=== PATIENT | male | born 1960 | race Caucasian/White ===

== ENCOUNTER 2017-09-16 11:48 | Emergency (ER) | payer MEDICARE, SELFPAY | END 2017-09-16 14:31 | disposition home or self-care (01) | PROVIDERS: Emergency Provider Emergency Medicine; Visit Provider Emergency Medicine | DX: J11.1 Influenza due to unidentified influenza virus with other respiratory manifestations (principal); K52.9 Noninfective gastroenteritis and colitis, unspecified; K57.92 Diverticulitis of intestine, part unspecified, without perforation or abscess without bleeding; R68.83 Chills (without fever); Z72.0 Tobacco use | CPT/HCPCS: 74176; 80053; 81001; 83690; 85025; 87086; 87275; 87276; 99283; J2405 ==

== ENCOUNTER 2020-05-17 14:56 | Emergency (ER) | payer MEDICARE, SELFPAY ==
[2020-05-17 15:14] VITALS: BP 144/92; PULSE 91; RESP 19; TEMP 36.6; O2SAT 98; BMI 22.2
--- NOTE | 2020-05-17 15:49 | HMH.EDUTC ---
[facility] [place] Clinical Impression: Cellulitis of left foot Disposition: Home, Self-Care Condition on Discharge: Good Instructions: Cellulitis Additional Instructions: Keep the affected area clean and dry. Follow up with your regular doctor. Take the antibiotics as directed and apply the topical antibiotics as directed. Soak the foot in warm epsom salts water 2 or 3 times per day for the next few days. Follow up podiatry (Dr. Perry) if this is not getting better within a 2 to 3 days. Follow up with your regular doctor. We will give you a list of doctors that are taking new patients. GO TO THE ER FOR ANY WORSENING SYMPTOMS Prescriptions: Amoxicillin/Potassium Clav [Augmentin 875-125 Tablet] 1 tab PO Q12H 10 Days #20 tab Transmission Status: Received by [facility] Mupirocin [Bactroban 2% Ointment 22gm tube] 1 applicatio TP TID 7 Days #1 tube Transmission Status: Received by [facility] Referrals: PCP,No [Primary Care Provider] - Time of Disposition: 16:04 Medical Decision Making - Medical Records Medical records reviewed: No: I reviewed the patient's medical records. - Diogenes Inquiry Pt receiving controlled substance: No Vital Signs: 05/17/20 15:14 05/17/20 16:20 Temperature 97.9 F 97.9 F Temperature Source Oral Pulse Rate 91 H Pulse Rate [Right Brachial] 91 H Respiratory Rate 19 19 Blood Pressure 144/92 H Blood Pressure [Right Arm] 144/92 H Blood Pressure Mean [Right Arm] 109 Blood Pressure Source [Right Arm] Automatic Cuff Blood Pressure Position [Right Arm] Sitting 02 Sat by Pulse Oximetry 98 Oxygen Delivery Method Room Air Orders (Tests/Meds): ED MEDICATIONS Discontinued Medications Generic Name Dose Route Start Last Admin Trade Name Freq PRN Reason Stop Dose Admin Ceftriaxone Sodium 1 gm 05/17/20 15:59 05/17/20 16:14 Rocephin 1gm Vial IM 05/17/20 16:00 1 gm ONCE ONE Administration Protocol Lidocaine HCl 0 ml 05/17/20 15:59 05/17/20 16:14 Lidocaine 1% 10ml Mdv IM 05/17/20 16:00 2.1 ml ONCE ONE Administration [facility] [place] - General Stated complaint: Pain in pinkie toe on l foot with swelling Time Seen by Provider: 05/17/20 15:50 Mode of Arrival: Ambulatory Source of Information: Patient Limitations: No Limitations Description of Symptoms (Recalled from Triage Doc. by RN): PATIENT C/O REDNESS AND SWELLING TO LEFT PINKY TOE X 3 DAYS HEENT Symptoms (Recalled from RN notes): No Resp Symptoms (Recalled from RN notes): No Skin Symptoms (Recalled from RN notes): No MS Symptoms (Recalled from RN notes): Yes Functional Status (Recalled from RN notes): WNL - History of Present Illness Provider Complaint: He states that he has a sore area between his 4th and 5th toes on his left foot. This began 2 days ago. - Related Data Previous Rx's Medication Instructions Recorded Erythromycin Base [Erythromycin 1 gm EYE-RIGHT Q6H #1 tube 11/11/19 1gm opth ointment] Amoxicillin/Potassium Clav 1 tab PO Q12H 10 Days #20 tab 05/17/20 [Augmentin 875-125 Tablet] Mupirocin [Bactroban 2% Ointment 1 applicatio TP TID 7 Days #1 tube 05/17/20 22gm tube] Allergies Allergy/AdvReac Type Severity Reaction Status Date / Time No Known Allergies Allergy Verified 11/11/19 09:26 - Worker's Comp Is this a Worker's Comp case?: No [facility] History - Hepatitis A Screen Drug use history?: No High risk sexual behaviors?: No History of sexually transmitted infection?: No Currently employed?: No Childcare worker?: No Do you have indoor plumbing?: Yes Do you have electricity?: Yes Attestation statement:: This patient has been screened for Hepatitis A risk factors. I have reviewed the patient's past medical history: Yes - Social History Smoking Status: Current every day smoker Tobacco Type: cigarettes # Packs/Day (cigarettes): 1 Alcohol Intake: never Occupational Status: other ROS Obtained: Yes All sohail
[2020-05-17 16:20] VITALS: BP 144/92; PULSE 91; RESP 19; TEMP 36.6; O2SAT 98
== END 2020-05-17 16:28 | disposition home or self-care (01) ==
PROVIDERS: Emergency Provider Nurse Practitioner Family
DX: L03.116 Cellulitis of left lower limb (principal); F17.210 Nicotine dependence, cigarettes, uncomplicated
CPT/HCPCS: G0463; 96372; 99201

== ENCOUNTER 2023-01-30 18:32 | Emergency (ER) | payer MEDICARE, SELFPAY ==
[2023-01-30 18:41] VITALS: PULSE 101; O2SAT 99
[2023-01-30 18:45] VITALS: BP 186/100; PULSE 105; RESP 16; TEMP 37.6; O2SAT 99; BMI 21.5
--- NOTE | 2023-01-30 18:47 | PC.NURSE ---
Er at bedside
--- NOTE | 2023-01-30 18:50 | CT_ITS ---
PROCEDURE INFORMATION: Exam: CT Abdomen And Pelvis With Contrast Exam date and time: 01/30/2023 7:43 PM Age: 62 years old Clinical indication: Abdominal pain; Additional info: Concern for complicated divertic TECHNIQUE: Imaging protocol: Computed tomography of the abdomen and pelvis with contrast. Radiation optimization: All CT scans at this facility use at least one of these dose optimization techniques: automated exposure control; mA and/or kV adjustment per patient size (includes targeted exams where dose is matched to clinical indication); or iterative reconstruction. Contrast material: ISOVUE; Contrast volume: 75 ml; Contrast route: IV; REPORTING DATA: Count of CT and Cardiac NM exams in prior 12 months: This patient has received 0 known CTs and 0 known cardiac nuclear medicine studies in the 12 months prior to the current study. COMPARISON: ABDPELW/O CT ABD PELVIS W/O CONTRAST 09/16/2017 12:38 PM FINDINGS: Liver: Diffuse low-attenuation of the liver. No mass. Gallbladder and bile ducts: No calcified stones. No ductal dilation. Pancreas: Normal enhancement. No ductal dilation. Spleen: No splenomegaly. Adrenal glands: No mass. Kidneys and ureters: No hydronephrosis. Stomach and bowel: Diverticulosis coli with thickened appearance of the cecum but without significant adjacent stranding. The terminal ileum also appears thickened with several prominent loops of small bowel within the right paramedian abdomen measuring up to 2.9 cm in short axis dimension. Appendix: No evidence of appendicitis. Intraperitoneal space: No significant fluid collection. No free air. Vasculature: Calcified aortic atherosclerosis. No aneurysm. Lymph nodes: No enlarged lymph nodes. Urinary bladder: Urinary bladder wall is thickened measuring 8 mm. Reproductive: No acute abnormality. Bones/joints: No acute fracture. Soft tissues: Small fat containing inguinal hernias appears stable. IMPRESSION: 1. Diverticulosis coli with thickened appearance of the cecum but without significant adjacent stranding. Correlate clinically with diverticulitis or short-segment colitis. Mucosal mass can not be radiographically excluded 2. The terminal ileum also appears thickened with several prominent loops of small bowel within the right paramedian abdomen measuring up to 2.9 cm in short axis dimension. Correlate clinically with potential enteritis and or developing partial obstruction. 3. Urinary bladder wall is thickened which may be reactive however correlation with UA is recommended.
--- NOTE | 2023-01-30 18:51 | HMH.EDGENADL ---
Discharge Plan Disposition Patient Disposition: Home, Self-Care Prescriptions Prescriptions: New ciprofloxacin HCl 500 mg tablet 500 mg PO Q12H Qty: 14 0RF metronidazole 500 mg tablet 500 mg PO Q8H 7 Days Qty: 21 0RF No Action erythromycin 1 GM ointment 1 gm EYE-RIGHT Q6H Qty: 1 0RF mupirocin 22 GM ointment 1 applicatio TP TID 7 Days Qty: 1 0RF amoxicillin-pot clavulanate 1 EACH tablet 1 tab PO Q12H 10 Days Qty: 20 0RF Referrals Follow up/Referrals: Provider,Nicolas, [Primary Care Provider] - See instructions Marco Restrepo MD [Staff Physician] - See instructions Clinical Impressions Clinical Impression: Diverticulitis Instructions Patient Instructions: DI for Diverticulitis Discharge ED Provider: Ken Jefferson General Adult HPI General Chief complaint: GI Bleed Stated complaint: vomiting Time Seen by Provider: 01/30/23 18:45 Mode of Arrival: Ambulatory Source of Information: Patient and Relative Limitations: No Limitations Description of Symptoms (Recalled from ER Triage Doc. by RN): 62 yo M presents with c/o rectal bleeding. ongoing since tuesday. History of Present Illness HPI narrative: Patient is a 62-year-old male who presents with concern for rectal bleeding. He says that starting on Tuesday he started to get left lower quadrant pain and then noted that he was having some rectal bleeding. He noted that there was occasionally red mixed in his stool but occasionally like that he was streaking. He has a history of diverticulitis. He also endorses fever and chills. He says the pain is gotten substantially worse. He also feels very nauseous. He says that yesterday he was going to the bathroom numerous times with blood-tinged diarrhea. He also notes some pain down in his pelvic region. Denies any dysuria. Denies any hematuria. Related Data Previous Rx's Medication Instructions Recorded erythromycin 5 mg/gram (0.5 %) eye 1 gm EYE-RIGHT Q6H #1 tube 11/11/19 ointment amoxicillin 875 mg-potassium 1 tab PO Q12H 10 days #20 tabs 05/17/20 clavulanate 125 mg tablet mupirocin 2 % topical ointment 1 applicatio TP TID 7 days #1 tube 05/17/20 ciprofloxacin HCl 500 mg tablet 500 mg PO Q12H #14 tabs 01/30/23 metronidazole 500 mg tablet 500 mg PO Q8H 7 days #21 tabs 01/30/23 Allergies Allergy/AdvReac Type Severity Reaction Status Date / Time No Known Allergies Allergy Verified 11/11/19 09:26 [facility] Disclaimer: The information contained in this section may have been updated after the patient was seen, as this information can be updated by other users. Social History Smoking Status: Current every day smoker tobacco type: cigarettes packs per day: 1 alcohol intake: never current occupational status: other Travel in the last 8 weeks: None ROS Obtained: Yes All systems reviewed & no additional complaints except as documented Physical Exam General General appearance: alert and in no apparent distress Head Head exam: atraumatic, normocephalic and normal inspection Eye Eye exam: Present normal appearance and PERRL ENT ENT exam: Present normal exam, mucous membranes moist and normal external ear exam Neck Neck exam: Present normal inspection and trachea midline Chest Chest inspection: Present normal inspection and symmetric chest wall rise Respiratory Respiratory exam: Present normal lung sounds bilaterally; Absent respiratory distress Cardiovascular Cardiovascular exam: Present regular rate and normal rhythm Abdominal Exam Abdominal exam: Present soft and tenderness; Absent distention or guarding Abdominal tenderness: Present LLQ and moderate Extremities Exam Extremities exam: Present normal inspection; Absent edema Neurological Exam Neurological exam: Present alert and oriented X3 Psychiatric Psychiatric exam: Present normal affect and normal mood Skin Skin exam: Present warm, dry, intact and normal color Medical Decision Making Medic
[2023-01-30 19:05] LABS: Alanine Aminotransferase 68 U/L (12-78); Albumin Level 4.5 g/dl (3.5-5.0); Albumin/Globulin Ratio 1.5 (1.1-1.8); Alkaline Phosphatase 55 U/L (38-126); Anion Gap 17.2 mEq/L (5-15); Aspartate Amino Transferase 77 U/L (17-59); Basophils % 0.3 % (0.1-2.0); Blood Urea Nitrogen 7 mg/dl (9-20); Calcium 8.7 mg/dl (8.4-10.2); Carbon Dioxide 26 mmol/L (22.0-30.0); Chloride 86 mmol/L (98-107); Creatinine Clearance Estimated 74 mL/min (50-200); Eosinophils # 0.1 K/mm3 (0.0-0.4); Eosinophils % 1.3 % (0.1-12.0); Estimated Glomerular Filt Rate 114 ml/min (>60); GFR (African American) 138 ML/MIN (>60); Glucose 140 mg/dl (74-100); Hematocrit 49.3 % (42.0-52.0); Hemoglobin 16.6 g/dL (14.1-18.0); Lipase 107 U/L (23-300); Lymphocytes # 1.3 K/mm3 (0.7-4.5); Lymphocytes % 14.7 % (10-50); Mean Corpuscular HGB Conc 33.6 g/dL (31.8-35.4); Mean Corpuscular Hemoglobin 34.4 pg (27.0-31.2); Mean Corpuscular Volume 102.1 fl (80-94); Monocytes # 0.8 K/mm3 (0.1-1.0); Monocytes % 9.5 % (1.7-9.3); Neutrophils # 6.3 K/mm3 (1.8-7.8); Neutrophils % 74.2 % (37.0-80.0); Platelet Count 239 K/mm3 (142-424); Potassium 3.2 mmoL/L (3.5-5.1); Red Blood Count 4.83 M/mm3 (4.60-6.20); Red Cell Distribution Width 13.7 % (11.5-17.5); Sodium 126 mmol/L (136-145); Total Protein,Serum 7.5 g/dl (6.3-8.2); White Blood Count 8.5 K/mm3 (4.8-10.8)
[2023-01-30 19:10] LABS: C-Reactive Protein 31.5 mg/L (0-4)
[2023-01-30 19:24] LABS: Lactic Acid 1.9 mmol/L (0.7-2.1)
[2023-01-30 19:30] VITALS: BP 150/94; PULSE 86; O2SAT 99
--- NOTE | 2023-01-30 19:39 | PC.NURSE ---
Pt gone to RAD via wheelchair
[2023-01-30 19:54] LABS: Adenovirus F 40/41, stool Not Detected (NotDetected); Astrovirus Not Detected (NotDetected); Campylobacter Not Detected (NotDetected); Clostridium Difficile A/B, PCR Not Detected (NotDetected); Cryptosporidium Not Detected (NotDetected); Cyclospora Cayetanesis Not Detected (NotDetected); Entamoeba histolytica Not Detected (NotDetected); Enteropathogenic E coli Not Detected (NotDetected); Enterotoxigenic E coli Not Detected (NotDetected); Giardia lamblia Not Detected (NotDetected); Norovirus Not Detected (NotDetected); Plesimonas Shigalloides, PCR Not Detected (NotDetected); Rotavirus A Not Detected (NotDetected); Salmonella, PCR Not Detected (NotDetected); Sapovirus Not Detected (NotDetected); Shiga-like toxin E coli Not Detected (NotDetected); Shigella Enterovasive E coli Not Detected (NotDetected); Vibrio Cholerae Not Detected (NotDetected); Vibrio, PCR Not Detected (NotDetected); Yersinia Entercolitica, PCR Not Detected (NotDetected)
[2023-01-30 19:56] LABS: Occult Blood,Stool Positive (Negative)
--- NOTE | 2023-01-30 19:59 | PC.NURSE ---
Pt is back in room from RAD. No needs or complaints at this time.
--- NOTE | 2023-01-30 20:26 | PC.NURSE ---
Dr. Jefferson updating pt family on scan results
[2023-01-30 20:47] LABS: Microscopic, Urine URINE MICROSCOPIC (MICROSCOPIC)
[2023-01-30 21:10] VITALS: BP 147/71; PULSE 81; RESP 16; TEMP 37.1; O2SAT 99
[2023-01-30 21:13] LABS: Appearance,Urine CLEAR (Clear); Blood, Urine Negative (Negative); Color,Urine YELLOW (Yellow); Glucose,Urine (UA) Negative (Negative); Ketones,Urine TRACE (Negative); Leukocyte Esterase,Urine Negative (Negative); Nitrate,Urine Negative (Negative); PH,Urine 7.5 (5.0-8.5); Protein,Urine Negative (Negative); Specific Gravity, Urine <= 1.005 (1.005-1.030); Urobilinogen,Urine 0.2 EU/dl (0.2)
--- NOTE | 2023-01-30 21:32 | PC.NURSE ---
Pt is ready for d/c, family is aware and will be by shortly to take pt home
[2023-01-30 21:43] LABS: Bilirubin,Urine 1+ (Negative)
[2023-01-30 22:01] LABS: Bacteria,Urine Trace /lpf; Squamous Epithelial Cell,Urine Occasional #/hpf (0-5)
[2023-01-30 22:40] LABS: Enteroaggregative E coli Detected (NotDetected)
--- NOTE | 2023-01-30 22:45 | PC.NURSE ---
notified on positive ecoil diarrhea panel
== END 2023-01-30 22:28 | disposition home or self-care (01) ==
PROVIDERS: Emergency Provider Student in an Organized Health Care Education/Training Program
DX: K57.92 Diverticulitis of intestine, part unspecified, without perforation or abscess without bleeding (principal); K62.5 Hemorrhage of anus and rectum; F17.210 Nicotine dependence, cigarettes, uncomplicated
CPT/HCPCS: 74177; 80053; 81001; 82272; 83605; 83690; 84145; 85025; 86140; 87086; 87506; 96361; 96374; 96375; 99285; G0328; J2405; Q9967

== ENCOUNTER 2023-01-31 09:56 | Observation (INO) | payer MEDICARE, SELFPAY ==
[2023-01-31] VITALS (7 sets, daily range): BP systolic 119–175; BP diastolic 80–98; PULSE 68–96; RESP 16–20; TEMP 36.8–36.9; O2SAT 91–100; BMI 21.5
--- NOTE | 2023-01-31 09:59 | HMH.EDGENADL ---
Discharge Plan Disposition Chief Complaint: Altered Mental Status Prescriptions Prescriptions: No Action erythromycin 1 GM ointment 1 gm EYE-RIGHT Q6H Qty: 1 0RF ciprofloxacin HCl 500 mg tablet 500 mg PO Q12H Qty: 14 0RF metronidazole 500 mg tablet 500 mg PO Q8H 7 Days Qty: 21 0RF mupirocin 22 GM ointment 1 applicatio TP TID 7 Days Qty: 1 0RF amoxicillin-pot clavulanate 1 EACH tablet 1 tab PO Q12H 10 Days Qty: 20 0RF Discharge ED Provider: Pieter Villalta General Adult HPI General Chief complaint: Altered Mental Status Stated complaint: altered mental Time Seen by Provider: 01/31/23 09:59 History of Present Illness HPI narrative: Patient is a 62-year-old male presenting with altered mental status. He is accompanied by his daughter who is a primary historian as patient is significantly altered. Patient was in the emergency department last night with abdominal pain and lower GI bleed had a CT scan demonstrating diverticulitis was started on Cipro and Flagyl. Patient's sodium was also 126. Patient has a history of alcoholism and drinks daily but has not had any drinks in the last 48 hours according to daughter. She states that he was acting normally up until about 30 minutes prior to arrival when she went into [facility] and returned and patient was significantly altered. No witnessed seizure. No tongue biting or bleeding from his mouth and patient not lost any urinary continence. She stated the patient had no focal motor deficits and his only neurologic abnormality was a change in mental status. Patient has not had any fevers or chills. Additionally he has not complained of any significant abdominal pain since being discharged last night. Related Data Previous Rx's Medication Instructions Recorded erythromycin 5 mg/gram (0.5 %) eye 1 gm EYE-RIGHT Q6H #1 tube 11/11/19 ointment amoxicillin 875 mg-potassium 1 tab PO Q12H 10 days #20 tabs 05/17/20 clavulanate 125 mg tablet mupirocin 2 % topical ointment 1 applicatio TP TID 7 days #1 tube 05/17/20 ciprofloxacin HCl 500 mg tablet 500 mg PO Q12H #14 tabs 01/30/23 metronidazole 500 mg tablet 500 mg PO Q8H 7 days #21 tabs 01/30/23 Allergies Allergy/AdvReac Type Severity Reaction Status Date / Time No Known Allergies Allergy Verified 11/11/19 09:26 [facility] Disclaimer: The information contained in this section may have been updated after the patient was seen, as this information can be updated by other users. Social History Smoking Status: Never smoker alcohol intake: never current occupational status: other Travel in the last 8 weeks: None ROS Obtained: Yes All systems reviewed & no additional complaints except as documented Physical Exam General General appearance: alert and in no apparent distress Respiratory Respiratory exam: Present normal lung sounds bilaterally; Absent respiratory distress or wheezes Cardiovascular Cardiovascular exam: Present regular rate; Absent normal rhythm or tachycardia Neurological Exam Neurological exam: Present alert, oriented X3 (Oriented to self location but disoriented to time saying inappropriate things not consistent with linear thought processes), CN II-XII intact and normal gait; Absent motor sensory deficit Medical Decision Making Diogenes Inquiry Pt receiving controlled substance: No Vital Signs: 01/31/23 10:06 01/31/23 10:30 01/31/23 11:00 Temperature 98.4 F Temperature Source Oral Pulse Rate 92 H 78 Pulse Rate [Left Radial] 96 H Respiratory Rate 20 16 16 Blood Pressure 119/90 142/98 H Blood Pressure [Right Arm] 175/93 H Blood Pressure Mean 97 103 Blood Pressure Mean [Right Arm] 120 02 Sat by Pulse Oximetry 100 99 98 Oxygen Delivery Method Room Air Lab Data Lab results reviewed: Yes I reviewed the patient's lab results. Lab Results 01/31/23 10:00: WBC 8.4, RBC 4.88, Hgb 17.0, Hct 49.7, MCV 101.8 H, MCH 34.8 H, MCHC 34.1, RDW 13.5, Plt Count 21
--- NOTE | 2023-01-31 10:00 | ECG_ITS ---
APPROVED REPORT Exam: Resting ECG HR:96 bpm ECG Measurements Heart Rate 96 AXES WI 180 P 59 QRSd 82 QRS 44 QT 369 T 46 QTc 423 Conclusion SINUS RHYTHM MODERATE ST DEPRESSION [0.05+ mV ST DEPRESSION] ABNORMAL ECG UNCONFIRMED REPORT Electronically signed by : Marco Restrepo MD 01/31/2023 21:14:26
--- NOTE | 2023-01-31 10:04 | PC.NURSE ---
JIM PETTY at
[2023-01-31 10:08] LABS: POC Glucose,Bedside 158 (70-110)
--- NOTE | 2023-01-31 10:11 | CT_ITS ---
FINAL REPORT CLINICAL HISTORY: AMS FINDINGS: Axial images of the head were obtained without contrast. Coronal reformatted images were also obtained.This study was performed with techniques to keep radiation doses as low as reasonably achievable (ALARA). Individualized dose reduction techniques using automated exposure control or adjustment of mA and/or kV according to the patient's size were employed. There is no evidence of intracranial hemorrhage or mass. The ventricular size is within normal limits. There is no evidence of shift of the midline structures. No abnormal extra axial fluid collection is identified. No skull abnormality is seen on the bone window images. There is moderate mucosal thickening in the right maxillary sinus. IMPRESSION: No acute intracranial abnormality. Reviewed, Interpreted and Dictated by Job Conn III, MD Transcribed by Jose M Crum Authenticated and [facility]
--- NOTE | 2023-01-31 10:11 | PC.NURSE ---
rad notified of new orders on pt, ER reports placing orders at this time
--- NOTE | 2023-01-31 10:12 | XR_ITS ---
FINAL REPORT CLINICAL HISTORY: AMS FINDINGS: The heart size is normal. The mediastinum is within normal limits. There is mild right lung base opacity. There is no pleural effusion. There is no pneumothorax. The bony thorax is intact. IMPRESSION: Mild right base opacity could represent atelectasis or pneumonia. Reviewed, Interpreted and Dictated by Job Conn III, MD Transcribed by Jose M Crum Authenticated and [facility]
--- NOTE | 2023-01-31 10:16 | PC.NURSE ---
pt to CT
[2023-01-31 10:22] LABS: Basophils % 0.4 % (0.1-2.0); Eosinophils # 0.2 K/mm3 (0.0-0.4); Hematocrit 49.7 % (42.0-52.0); Lymphocytes # 1.6 K/mm3 (0.7-4.5); Lymphocytes % 18.4 % (10-50); Mean Corpuscular HGB Conc 34.1 g/dL (31.8-35.4); Mean Corpuscular Hemoglobin 34.8 pg (27.0-31.2); Mean Corpuscular Volume 101.8 fl (80-94); Mean Platelet Volume 9.4 fl (7.4-10.4); Monocytes # 0.8 K/mm3 (0.1-1.0); Monocytes % 9.6 % (1.7-9.3); Neutrophils # 5.8 K/mm3 (1.8-7.8); Neutrophils % 69.6 % (37.0-80.0); Platelet Count 216 K/mm3 (142-424); Red Blood Count 4.88 M/mm3 (4.60-6.20); Red Cell Distribution Width 13.5 % (11.5-17.5); White Blood Count 8.4 K/mm3 (4.8-10.8)
[2023-01-31 10:27] LABS: Alanine Aminotransferase 93 U/L (12-78); Albumin Level 4.6 g/dl (3.5-5.0); Albumin/Globulin Ratio 1.6 (1.1-1.8); Alkaline Phosphatase 59 U/L (38-126); Anion Gap 22.1 mEq/L (5-15); Aspartate Amino Transferase 118 U/L (17-59); Blood Urea Nitrogen 6 mg/dl (9-20); Calcium 8.4 mg/dl (8.4-10.2); Carbon Dioxide 20 mmol/L (22.0-30.0); Chloride 84 mmol/L (98-107); Creatinine Clearance Estimated 74 mL/min (50-200); Estimated Glomerular Filt Rate 114 ml/min (>60); GFR (African American) 138 ML/MIN (>60); Globulin 2.9 g/dL (1.3-3.2); Glucose 147 mg/dl (74-100); Potassium 3.1 mmoL/L (3.5-5.1); Sodium 123 mmol/L (136-145); Total Protein,Serum 7.5 g/dl (6.3-8.2)
[2023-01-31 10:30] LABS: INR 0.95 (0.9-1.1); Prothrombin Time 10.3 seconds (10.1-12.5)
[2023-01-31 10:32] LABS: Ammonia 32 umol/L (9-30)
[2023-01-31 10:33] LABS: Lactic Acid 5.3 mmol/L (0.7-2.1)
--- NOTE | 2023-01-31 10:35 | PC.NURSE ---
Ioana from lab called critical on patient. Lactic of 5.3, information repeated and verified
--- NOTE | 2023-01-31 10:50 | PC.NURSE ---
pt medicated per MAR, family at BS, pt stated no needs at this time, call abebe in reach
--- NOTE | 2023-01-31 10:53 | PC.NURSE ---
contacted rad to check on status of Ct, staff reports scan is in locked status, notified JIM PETTY
--- NOTE | 2023-01-31 11:11 | PC.NURSE ---
call made to radiology about status of reports for scans. tech noted that they were locked
--- NOTE | 2023-01-31 11:18 | PC.NURSE ---
ED doctor on phone with hospitalist
[2023-01-31 11:27] LABS: Coronavirus 19, PCR Not Detected (NotDetected); Influenza A, PCR Not Detected (NotDetected); Influenza B, PCR Not Detected (NotDetected)
[2023-01-31 11:37] LABS: Thyroid Stimulating Hormone 1.53 uIU/mL (0.465-4.68)
--- NOTE | 2023-01-31 11:46 | PC.NURSE ---
PT AMBULATED UP TO BR WITH ASSISTANCE , PT BACK IN BED
--- NOTE | 2023-01-31 12:06 | PC.NURSE ---
Attempted report, nurse not available, but will call back in 10 minutes
--- NOTE | 2023-01-31 12:11 | PC.NURSE ---
pt reporting abd pain, reports pain worsens with movement. Pt reports pain began after having a BM, states is still blood noted in stool. Notified Dr. Cox of the above gave verbal order for Morphine 2mg IV one time dose.
--- NOTE | 2023-01-31 12:20 | PC.NURSE ---
report called to [employer] on second floor at this time, states she will send staff down to transport pt.
--- NOTE | 2023-01-31 12:28 | PC.NURSE ---
patient being transferred to floor at this time
--- NOTE | 2023-01-31 13:19 | EXP.HP ---
History of Present Illness *Admission Date: 01/31/23 *Reason for visit:: confusion *History of present illness: Mr. Nuñez is a 62-year-old male who presented to the ER with concern for altered mental status today. He presented with his daughter who assisted in giving history. She states he was in the ER last night where he was diagnosed with abdominal pain and GI bleed. CT of his abdomen showed diverticulitis. He was started on antibiotics. They went to pick them up this morning. Upon returning to the car he was not in his normal state of mind. He appeared more confused and did not know where he was or who he was. She brought him to the ER for further evaluation. Of note, his sodium was abnormal last night as well at 126 and he has a history of alcoholism and drinks daily but has not had a drink for the past 48 to 72 hours per his daughter. He was reportedly at baseline mentation until about 30 minutes prior to arrival to the ER. On arrival he was found to be normotensive. Afebrile. On room air. Labs obtained showing persistent hyponatremia with sodium of 123. Lactate elevated. And still appears somewhat confused. CT of his head with no acute intracranial abnormalities. Patient started on antibiotics for his diverticulitis and medicine consulted for admission for alcohol withdrawal. ER consulted medicine for admission and further management. On arrival to the floor, patient is oriented to self and place. Appears to be improving in mentation. Complaining of abdominal pain. Stable on room air. Afebrile. Tolerating p.o. intake. Has had another bloody bowel movement since admission. [facility] Disclaimer: The information contained in this section may have been updated after the patient was seen, as this information can be updated by other users. Medical History Diverticulitis Social History Smoking Status: Current every day smoker tobacco type: cigarettes packs per day: 1 alcohol intake: current current occupational status: other Travel in the last 8 weeks: None Review of Systems Review of Systems Review of systems (narrative): 14 point review of systems performed, pertinent positives and negatives as per HPI Meds Home Medications and Allergies Home Medications Medication Instructions Recorded Confirmed Type No Known Home Medications 01/31/23 01/31/23 History New Prescriptions to Start Prescriptions: Allergies Allergy/AdvReac Type Severity Reaction Status Date / Time No Known Allergies Allergy Verified 11/11/19 09:26 Exam Data for Last 24 hours Vital signs and Labs for Last 24 Hours: Temp Pulse Resp BP Pulse Ox 98.5 F 81 18 127/80 96 01/31/23 12:37 01/31/23 12:37 01/31/23 12:37 01/31/23 12:37 01/31/23 12:37 Laboratory Results - last 24 hr 01/31/23 10:00: WBC 8.4, RBC 4.88, Hgb 17.0, Hct 49.7, MCV 101.8 H, MCH 34.8 H, MCHC 34.1, RDW 13.5, Plt Count 216, MPV 9.4, Neut % (Auto) 69.6, Lymph % (Auto) 18.4, [place] % (Auto) 9.6 H, Eos % (Auto) 2.0, Baso % (Auto) 0.4, Neut # (Auto) 5.8, Lymph # (Auto) 1.6, [place] # (Auto) 0.8, Eos # (Auto) 0.2, Baso # (Auto) 0.0 01/31/23 10:00: PT 10.3, INR 0.95, APTT 26.0 01/31/23 10:00: Sodium 123 L, Potassium 3.1 L, Chloride 84 L, Carbon Dioxide 20 L, Anion Gap 22.1 H, BUN 6 L, Creatinine 0.70, Estimated Creat Clear 74, Estimated GFR 114, Est GFR ( Amer) 138, Glucose 147 H, Calcium 8.4, Total Bilirubin 1.0, AST 118 H D, ALT 93 H D, Alkaline Phosphatase 59, Total Protein 7.5, Albumin 4.6, Globulin 2.9, Albumin/Globulin Ratio 1.6, TSH 1.53 01/31/23 10:00: Lactate 5.3 H 01/31/23 10:00: Ammonia 32 H 01/31/23 10:01: POC Glucose 158 H 01/31/23 11:20: SARS-CoV-2 (PCR) Not detected, Influenza A Untype (PCR) Not detected, Influenza Type B (PCR) Not detected I & O for Last 24 hours: Intake & Output 01/28/23 01/29/23 01/30/23 01/31/23
[2023-01-31 14:16] LABS: Reflex Lactic Add Lactic Reflex
[2023-01-31 14:56] LABS: Lactic Acid Follow Up (RFLX 1) 0.6 mmol/L (0.7-2.1)
--- NOTE | 2023-01-31 16:05 | PC.NURSE ---
pt new admit this shift. pt admitted from ER. pt alert and oriented at this time. pt up with assistance d/t being unsteady at times. bed alarm in place for safety but pt uses call light for assistance. LS clear. abdomen soft, tender in lower quadrants, bs active. pt is up to BSC with assistance and has had blood in his stool. pt received his antibiotics for diverticulitis. seizure pads in place. CIWA performed.
--- NOTE | 2023-01-31 18:21 | PC.NURSE ---
Dr. Cox called in regards to patient stating he is having pain in lower abdomen. No new orders, MD to enter orders.
[2023-02-01 00:03] VITALS: PULSE 70
[2023-02-01 04:00] VITALS: BP 159/82; PULSE 70; RESP 18; TEMP 37; O2SAT 97; BMI 23.4
--- NOTE | 2023-02-01 04:04 | PC.NURSE ---
No changes over night. PT's CIWA score every 4 hours has remained a 1.
[2023-02-01 06:54] LABS: Basophils % 0.2 % (0.1-2.0); Eosinophils # 0.2 K/mm3 (0.0-0.4)
[2023-02-01 07:02] LABS: Alanine Aminotransferase 51 U/L (12-78); Albumin Level 3.1 g/dl (3.5-5.0); Albumin/Globulin Ratio 1.4 (1.1-1.8); Alkaline Phosphatase 43 U/L (38-126); Aspartate Amino Transferase 91 U/L (17-59); Bilirubin,Total 0.5 mg/dl (0.2-1.3); Blood Urea Nitrogen 3 mg/dl (9-20); Carbon Dioxide 26 mmol/L (22.0-30.0); Chloride 85 mmol/L (98-107); Creatinine Clearance Estimated 81 mL/min (50-200); Estimated Glomerular Filt Rate 168 ml/min (>60); GFR (African American) 204 ML/MIN (>60); Globulin 2.2 g/dL (1.3-3.2); Glucose 77 mg/dl (74-100); Magnesium 1.7 mg/dl (1.6-2.3); Sodium 123 mmol/L (136-145); Total Protein,Serum 5.3 g/dl (6.3-8.2)
[2023-02-01 07:10] LABS: Anion Gap 15.1 mEq/L (5-15)
[2023-02-01 07:11] LABS: Eosinophils % 2.2 % (0.1-12.0); Hematocrit 43.5 % (42.0-52.0); Hemoglobin 14.7 g/dL (14.1-18.0); Lymphocytes # 1.2 K/mm3 (0.7-4.5); Lymphocytes % 14.8 % (10-50); Mean Corpuscular HGB Conc 33.8 g/dL (31.8-35.4); Mean Corpuscular Hemoglobin 34.3 pg (27.0-31.2); Mean Corpuscular Volume 101.3 fl (80-94); Mean Platelet Volume 9.3 fl (7.4-10.4); Monocytes # 0.8 K/mm3 (0.1-1.0); Monocytes % 9.8 % (1.7-9.3); Neutrophils # 6.1 K/mm3 (1.8-7.8); Platelet Count 177 K/mm3 (142-424); Potassium 3.1 mmoL/L (3.5-5.1); Red Blood Count 4.29 M/mm3 (4.60-6.20); Red Cell Distribution Width 13.6 % (11.5-17.5); White Blood Count 8.4 K/mm3 (4.8-10.8)
[2023-02-01 07:14] VITALS: BP 150/91; PULSE 72; RESP 18; TEMP 36.7; O2SAT 100
--- NOTE | 2023-02-01 08:33 | HMH.PHAINT1 ---
Pharmacy Intervention Comments: MEDICATION RECONCILIATION COMPLETED ON PATIENT USING EXTERNAL FILL HISTORY FROM PHARMACY AND DISCHARGE SUMMARY FROM ED VISIT ON 01/30/23. -LOR HANSEN, EDILIAD
--- NOTE | 2023-02-01 09:35 | SW/DCPLANNER ---
I spoke with patient this AM regarding alcohol resources once discharge. Patient expressed that he is not interested in inpatient/outpatient resources at time of discharge. I did provide this patient with an [facility] Resource List and will continue to follow up with patient until medically stable for discharge. Discharge date is unknown at this time. Patient did not have any further questions/needs.
--- NOTE | 2023-02-01 09:42 | EXP.ACUTE.PN ---
Subjective *Date: 02/01/23 *Time: 09:42 Interval history: Patient had no further events overnight. Is alert and oriented x4 this morning. Feeling much better, but still fatigued today. Still having some nausea when he eats and abdominal discomfort. Another small bowel movement last night that was blood-tinged. Labs remain stable. Denies any chest pain, shortness of breath, confusion, headache, weakness. Significant improvement from yesterday per his report. Medical Exam Vital signs and Labs for Last 24 Hours: Vital Signs Temp Pulse Pulse Resp BP BP Pulse Ox 02/01/23 07:14 98.1 F 72 18 150/91 H 100 02/01/23 04:00 98.6 F 70 18 159/82 H 97 02/01/23 00:03 70 01/31/23 20:00 70 01/31/23 20:00 97 01/31/23 20:00 98.3 F 68 19 153/94 H 91 L 01/31/23 15:52 98.5 F 72 18 142/88 H 98 01/31/23 12:37 98.5 F 81 18 127/80 96 01/31/23 11:45 83 132/87 96 01/31/23 11:00 78 16 142/98 H 98 01/31/23 10:30 92 H 16 119/90 99 01/31/23 10:06 98.4 F 96 H 20 175/93 H 100 Intake and Output 01/31/23 02/01/23 02/01/23 23:59 07:59 15:59 Intake Total 75 / 75 1130 / 1130 Output Total 0 / 0 500 / 500 Balance 75 / 75 630 / 630 Intake: Intake, Oral Amount 75 / 75 180 / 180 Intake, Total IV Amount 950 / 950 Lactated Ringers 1000ML 1,000 850 / 850 ml @ 125 mls/hr IV .Q8H CHANDANA Rx# :[id number] Metronidaz/Sod Chl 500 mg In 100 / 100 100 ml @ 100 mls/hr IV Q8H CHANDANA Rx#:[id number] Output: Output, Urine Amount 0 / 0 500 / 500 Other: Number of Unmeasured Voids 0 Number of Bowel Movements 1 Weight 74.344 kg Patient Weight 02/01/23 23:59 Weight 74.344 kg Laboratory Results - last 24 hr 01/31/23 10:00: WBC 8.4, RBC 4.88, Hgb 17.0, Hct 49.7, MCV 101.8 H, MCH 34.8 H, MCHC 34.1, RDW 13.5, Plt Count 216, MPV 9.4, Neut % (Auto) 69.6, Lymph % (Auto) 18.4, [place] % (Auto) 9.6 H, Eos % (Auto) 2.0, Baso % (Auto) 0.4, Neut # (Auto) 5.8, Lymph # (Auto) 1.6, [place] # (Auto) 0.8, Eos # (Auto) 0.2, Baso # (Auto) 0.0 01/31/23 10:00: PT 10.3, INR 0.95, APTT 26.0 01/31/23 10:00: Sodium 123 L, Potassium 3.1 L, Chloride 84 L, Carbon Dioxide 20 L, Anion Gap 22.1 H, BUN 6 L, Creatinine 0.70, Estimated Creat Clear 74, Estimated GFR 114, Est GFR ( Amer) 138, Glucose 147 H, Calcium 8.4, Total Bilirubin 1.0, AST 118 H D, ALT 93 H D, Alkaline Phosphatase 59, Total Protein 7.5, Albumin 4.6, Globulin 2.9, Albumin/Globulin Ratio 1.6, TSH 1.53 01/31/23 10:00: Lactate 5.3 H 01/31/23 10:00: Ammonia 32 H 01/31/23 10:01: POC Glucose 158 H 01/31/23 11:20: SARS-CoV-2 (PCR) Not detected, Influenza A Untype (PCR) Not detected, Influenza Type B (PCR) Not detected 01/31/23 14:33: Lactate 0.6 L 02/01/23 06:13: WBC 8.4, RBC 4.29 L, Hgb 14.7 D, Hct 43.5, MCV 101.3 H, MCH 34.3 H, MCHC 33.8, RDW 13.6, Plt Count 177, MPV 9.3, Neut % (Auto) 73.0, Lymph % (Auto) 14.8, [place] % (Auto) 9.8 H, Eos % (Auto) 2.2, Baso % (Auto) 0.2, Neut # (Auto) 6.1, Lymph # (Auto) 1.2, [place] # (Auto) 0.8, Eos # (Auto) 0.2, Baso # (Auto) 0.0 02/01/23 06:13: Sodium 123 L, Potassium 3.1 L, Chloride 85 L, Carbon Dioxide 26, Anion Gap 15.1 H, BUN 3 L D, Creatinine 0.50 L D, Estimated Creat Clear 81, Estimated GFR 168, Est GFR ( Amer) 204 D, Glucose 77 D, Calcium 7.0 L, Magnesium 1.7, Total Bilirubin 0.5, AST 91 H, ALT 51 D, Alkaline Phosphatase 43, Total Protein 5.3 L D, Albumin 3.1 L D, Globulin 2.2, Albumin/Globulin Ratio 1.4 I & O for Labs for Last 24 Hours: Intake & Output 01/29/23 01/30/23 01/31/23 02/01/23 23:59 23:59 23:59 23:59 Intake Total 75 / 75 1130 / 1130 Output Total 0 / 0 500 / 500 Balance 75 / 75 630 / 630 Weight 68.067 kg 74.344 kg Constitutional: Present no acute distress and average body habitus Head: Present atraumatic and normocephalic Neck: Present normal inspection Respiratory: Present CTA bilaterally and normal respiratory ef
[2023-02-01 14:44] VITALS: BP 142/88; PULSE 82; RESP 18; TEMP 37.3; O2SAT 100
--- NOTE | 2023-02-01 16:54 | PC.NURSE ---
pt is a&ox4. LS clear. RA. 20g RFA. Brooke ordered 1500mL fluid restriction and encouraged gatorade or electrolyte drinks r/t hyponatremia. pt has tolerated ambulating to the bathroom well. pt reported scant amount of blood in bm around 0900. seizure precautions. daugther gave pt a shower at 1600 and changed bedding. bed in lowest position, with seizure pads on top rails and call light within reach.
[2023-02-01 18:36] LABS: Calcium 7.1 mg/dl (8.4-10.2); Carbon Dioxide 30 mmol/L (22.0-30.0); Creatinine Clearance Estimated 81 mL/min (50-200); Estimated Glomerular Filt Rate 137 ml/min (>60); GFR (African American) 165 ML/MIN (>60); Glucose 127 mg/dl (74-100)
[2023-02-01 18:37] LABS: Blood Urea Nitrogen < 2 mg/dl (9-20)
[2023-02-01 18:38] LABS: Sodium 127 mmol/L (136-145)
[2023-02-01 18:39] LABS: Anion Gap 20.7 mEq/L (5-15); Chloride 79 mmol/L (98-107)
[2023-02-01 19:03] LABS: Potassium 2.7 mmoL/L (3.5-5.1)
[2023-02-01 20:00] VITALS: BP 111/60; PULSE 79; RESP 18; TEMP 37.2; O2SAT 98; O2SAT 99
[2023-02-02 04:00] VITALS: BP 153/64; PULSE 72; RESP 18; TEMP 36.7; O2SAT 100; BMI 22.0
--- NOTE | 2023-02-02 04:49 | PC.NURSE ---
Pt. is a&ox4. lungs are clear. RA. 20g RFA. ordered 1500mL fluid restriction and encouraged gatorade or electrolyte drinks r/t hyponatremia. Hasn't c/o pain during my shift. states he would like to go home today. No changes noted.
[2023-02-02 07:19] VITALS: BP 153/62; PULSE 87; RESP 17; TEMP 37.1; O2SAT 99
[2023-02-02 07:31] LABS: Basophils % 0.2 % (0.1-2.0); Eosinophils # 0.2 K/mm3 (0.0-0.4); Eosinophils % 2.4 % (0.1-12.0); Hematocrit 44.1 % (42.0-52.0); Lymphocytes # 1.9 K/mm3 (0.7-4.5); Lymphocytes % 22.7 % (10-50); Mean Corpuscular HGB Conc 34.1 g/dL (31.8-35.4); Mean Corpuscular Hemoglobin 34.2 pg (27.0-31.2); Mean Corpuscular Volume 100.5 fl (80-94); Mean Platelet Volume 9.2 fl (7.4-10.4); Monocytes # 1.2 K/mm3 (0.1-1.0); Monocytes % 14.8 % (1.7-9.3); Neutrophils # 4.9 K/mm3 (1.8-7.8); Neutrophils % 59.9 % (37.0-80.0); Platelet Count 190 K/mm3 (142-424); Red Blood Count 4.39 M/mm3 (4.60-6.20); Red Cell Distribution Width 13.5 % (11.5-17.5); White Blood Count 8.2 K/mm3 (4.8-10.8)
--- NOTE | 2023-02-02 07:35 | EXP.DC.SUM ---
General Admission date:: 01/31/23 Discharge date: 02/02/23 HPI HPI HPI: Mr. Nuñez is a 62-year-old male who presented to the ER with concern for altered mental status today. He presented with his daughter who assisted in giving history. She states he was in the ER last night where he was diagnosed with abdominal pain and GI bleed. CT of his abdomen showed diverticulitis. He was started on antibiotics. They went to pick them up this morning. Upon returning to the car he was not in his normal state of mind. He appeared more confused and did not know where he was or who he was. She brought him to the ER for further evaluation. Of note, his sodium was abnormal last night as well at 126 and he has a history of alcoholism and drinks daily but has not had a drink for the past 48 to 72 hours per his daughter. He was reportedly at baseline mentation until about 30 minutes prior to arrival to the ER. On arrival he was found to be normotensive. Afebrile. On room air. Labs obtained showing persistent hyponatremia with sodium of 123. Lactate elevated. And still appears somewhat confused. CT of his head with no acute intracranial abnormalities. Patient started on antibiotics for his diverticulitis and medicine consulted for admission for alcohol withdrawal. ER consulted medicine for admission and further management. On arrival to the floor, patient is oriented to self and place. Appears to be improving in mentation. Complaining of abdominal pain. Stable on room air. Afebrile. Tolerating p.o. intake. Has had another bloody bowel movement since admission. Hospital Course Hospital Course Hospital Course: 62-year-old male with history of alcohol dependence who was diagnosed with diverticulitis, had episode of confusion on day of admission. Showed gradual improvement over the next 12 hours after admission. Has returned to baseline by day of discharge. Seeing some improvement in his electrolyte disturbances. No active signs of withdrawal from alcohol during admission. No other episodes of confusion. Medically stable to discharge home. Wants to establish with a new PCP, request of Dr. Mclean. Will refer for follow-up at discharge. Problems addressed as follows: Diverticulitis Lower GI bleed/hematochezia -CT of abdomen from 01/30 reviewed showing inflammation of cecum and concern for diverticulitis in the cecal region. Had multiple small bowel movements with scant blood. No significant change in hemoglobin level. Started on ceftriaxone and Flagyl. Tolerated well. Tolerating good p.o. intake. Plan to resume ceftriaxone and metronidazole at discharge which were prescribed before admission. Complete course of antibiotics for total of 10 days for diverticulitis. No significant anemia during admission. Would benefit from outpatient surgery consult for colonoscopy after diverticulitis resolves. Hyponatremia Hypokalemia -Concern for component of his symptomatic altered mental status yesterday.? Has seen improvement with fluid resuscitation. Sodium up to 127 night before discharge. Will discharge home on oral potassium supplementation and sodium supplementation. Suspect this is related to his alcoholism and nutrition. Repeat labs in the next 2-3 weeks to monitor for improvement. Has had longstanding hyponatremia. Potassium improved to 3.1 on day of discharge. Alcohol dependence Altered mental status -Suspected seizure like spell vs EtOH withdrawal vs Diverticulitis/illness vs hyponatremia as cause of altered mental status.? Patient did not have any loss of bowel or bladder. No history of seizures before. No further acute episodes of altered mental status. Monitored on CIWA protocol. No use or need for benzodiazepines during admission. Stable for discharge home. Follow-up with new PCP in the coming weeks. Exam Data for Last 24 hours Vital signs and Labs for Last 24 Hours: Temp Pulse Resp BP Pulse Ox 98.8 F 87 17 153/62
[2023-02-02 07:43] LABS: Alanine Aminotransferase 58 U/L (12-78); Albumin Level 3.2 g/dl (3.5-5.0); Albumin/Globulin Ratio 1.4 (1.1-1.8); Alkaline Phosphatase 40 U/L (38-126); Anion Gap 11.1 mEq/L (5-15); Aspartate Amino Transferase 161 U/L (17-59); Bilirubin,Total 0.4 mg/dl (0.2-1.3); Calcium 7.3 mg/dl (8.4-10.2); Carbon Dioxide 29 mmol/L (22.0-30.0); Chloride 87 mmol/L (98-107); Creatinine Clearance Estimated 76 mL/min (50-200); Estimated Glomerular Filt Rate 218 ml/min (>60); GFR (African American) 264 ML/MIN (>60); Globulin 2.3 g/dL (1.3-3.2); Glucose 105 mg/dl (74-100); Magnesium 1.9 mg/dl (1.6-2.3); Potassium 3.1 mmoL/L (3.5-5.1); Sodium 124 mmol/L (136-145); Total Protein,Serum 5.5 g/dl (6.3-8.2)
[2023-02-02 07:46] LABS: Blood Urea Nitrogen < 2 mg/dl (9-20)
--- NOTE | 2023-02-02 09:40 | PC.NURSE ---
courtesy tech alvaro: pt is lying in bed with call light within reach.
--- NOTE | 2023-02-02 11:45 | HMH.PHAINT1 ---
Pharmacy Intervention Comments: Discharge medications counseling completed. Patient was starting Tylenol, sodium chloride tab, and Klor-Con (informed patient of potential side effect of stomach upset and encouraged him to take this with a meal and a full glass of water). Patient was to continue taking metronidazole at home. I stressed the fact that this medication has a severe interaction with alcohol that could cause him to become extremely ill. Patient claimed that he had already been informed of this by the doctor and verbalized understanding. He did not have any additional questions.
--- NOTE | 2023-02-03 11:26 | CARE MANAGER ---
Called and spoke with patient regarding recent discharge. 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 No complaints or concerns at time of call.
== END 2023-02-02 12:09 | disposition home or self-care (01) ==
LOC: ER 11:23 → 2ND 11:58
PROVIDERS: Admitting Provider Internal Medicine Adolescent Medicine; Emergency Provider Student in an Organized Health Care Education/Training Program; Visit Provider Internal Medicine Adolescent Medicine
DX: E87.1 Hypo-osmolality and hyponatremia (principal); K57.92 Diverticulitis of intestine, part unspecified, without perforation or abscess without bleeding; F10.939 Alcohol use, unspecified with withdrawal, unspecified; K92.2 Gastrointestinal hemorrhage, unspecified; E87.6 Hypokalemia; F17.210 Nicotine dependence, cigarettes, uncomplicated; Z79.899 Other long term (current) drug therapy; Z20.822 Contact with and (suspected) exposure to COVID-19
CPT/HCPCS: G0378; 36415; 70450; 71045; 80048; 80053; 82140; 82962; 83605; 83735; 84443; 85025; 85610; 85730; 87040; 87635; 87636; 93005; 99285; C9803; J0696; J2405; U0003; U0005

== ENCOUNTER → 2023-02-24 09:59 | Outpatient (CLI) | payer MEDICARE, SELFPAY ==
--- NOTE | 2023-02-24 10:06 | XR_ITS ---
FINAL REPORT CLINICAL HISTORY: OSTEOARTHRITIS FINDINGS: Three views show no evidence of acute displaced fracture or dislocation of the visualized bony architecture. There is moderate degenerative change of the 1st metacarpal carpal articulation. Generalized osteopenia is present. There is mild degenerative change of the interphalangeal joints. IMPRESSION: Moderate degenerative change of the 1st metacarpal carpal articulation as well as mild degenerative change of the interphalangeal joints. Generalized osteopenia. Reviewed, Interpreted and Dictated by Juan Carlos Schuster MD Transcribed by Sylvia Gifford Authenticated and [facility]
--- NOTE | 2023-02-24 10:06 | XR_ITS ---
FINAL REPORT CLINICAL HISTORY: OSTEOARTHRITIS FINDINGS: Three views show no evidence of acute displaced fracture or dislocation of the visualized bony architecture. Moderate degenerative change of the 1st metacarpal carpal articulation. Generalized osteopenia is present. There is mild degenerative change of the interphalangeal joints. IMPRESSION: Moderate degenerative change of the 1st metacarpal carpal articulation as well as mild degenerative change of the interphalangeal joints. Generalized osteopenia. Reviewed, Interpreted and Dictated by Juan Carlos Schuster MD Transcribed by Sylvia Gifford Authenticated and . [facility]
[2023-02-24 10:51] LABS: Basophils % 0.7 % (0.1-2.0); Eosinophils # 0.2 K/mm3 (0.0-0.4); Eosinophils % 2.7 % (0.1-12.0); Hematocrit 52.8 % (42.0-52.0); Hemoglobin 16.7 g/dL (14.1-18.0); Lymphocytes % 34.5 % (10-50); Mean Corpuscular HGB Conc 31.7 g/dL (31.8-35.4); Mean Corpuscular Hemoglobin 34.2 pg (27.0-31.2); Mean Corpuscular Volume 107.9 fl (80-94); Mean Platelet Volume 8.8 fl (7.4-10.4); Monocytes # 0.6 K/mm3 (0.1-1.0); Monocytes % 9.7 % (1.7-9.3); Neutrophils % 52.3 % (37.0-80.0); Platelet Count 243 K/mm3 (142-424); Red Blood Count 4.89 M/mm3 (4.60-6.20); Red Cell Distribution Width 13.9 % (11.5-17.5); White Blood Count 5.8 K/mm3 (4.8-10.8)
[2023-02-24 11:13] LABS: Alanine Aminotransferase 33 U/L (12-78); Albumin Level 4.2 g/dl (3.5-5.0); Albumin/Globulin Ratio 1.4 (1.1-1.8); Alkaline Phosphatase 75 U/L (38-126); Anion Gap 13.8 mEq/L (5-15); Aspartate Amino Transferase 50 U/L (17-59); Bilirubin,Total 0.7 mg/dl (0.2-1.3); Blood Urea Nitrogen 4 mg/dl (9-20); Calcium 8.8 mg/dl (8.4-10.2); Carbon Dioxide 26 mmol/L (22.0-30.0); Chloride 101 mmol/L (98-107); Estimated Glomerular Filt Rate 137 ml/min (>60); GFR (African American) 165 ML/MIN (>60); Glucose 112 mg/dl (74-100); Potassium 4.8 mmoL/L (3.5-5.1); Sodium 136 mmol/L (136-145); Total Protein,Serum 7.2 g/dl (6.3-8.2)
[2023-02-24 11:27] LABS: 25-OH Vitamin D, Total 15.3 ng/mL (30-100)
[2023-02-24 12:00] LABS: Vitamin B12 673 pg/mL (239-931)
[2023-02-25 14:22] LABS: Anti-Centromere B Antibodies <0.2 AI (0.0-0.9); Anti-Cyclic Citrullinated Pept 5 units (0-19); Anti-DNA (DS) Ab Qn 2 IU/mL (0-9); Anti-Jo-1 <0.2 AI (0.0-0.9); Anti-Smith Antibody <0.2 AI (0.0-0.9); Antichromatin Antibodies <0.2 AI (0.0-0.9); Antiscleroderma-70 Antibodies <0.2 AI (0.0-0.9); RNP Antibodies <0.2 AI (0.0-0.9); Sjogren's Anti-SS-A 0.4 AI (0.0-0.9); Sjogren's Anti-SS-B <0.2 AI (0.0-0.9)
== END ==
PROVIDERS: PCP Internal Medicine Adolescent Medicine; Visit Provider Internal Medicine Adolescent Medicine
DX: M19.041 Primary osteoarthritis, right hand (principal); M19.042 Primary osteoarthritis, left hand; I10 Essential (primary) hypertension; E55.9 Vitamin D deficiency, unspecified; E87.6 Hypokalemia; K57.92 Diverticulitis of intestine, part unspecified, without perforation or abscess without bleeding
CPT/HCPCS: 36415; 73130; 80053; 82306; 82607; 84443; 85025; 86200; 86225; 86235

== ENCOUNTER 2023-12-22 09:48 | Outpatient (CLI) | payer MEDICARE, SELFPAY ==
--- NOTE | 2023-12-22 09:54 | US_ITS ---
FINAL REPORT TECHNIQUE: Ultrasound images of the abdominal aorta were obtained. CLINICAL HISTORY: PERSONAL H/O NICOTINE DEPENDENCE COMPARISON: None FINDINGS: ULTRASOUND OF THE ABDOMINAL AORTA The aorta measures up to 2.3 cm. The bifurcation is normal. IMPRESSION: No evidence of abdominal aortic aneurysm. Reviewed, Interpreted and Dictated by Job Conn III, MD Transcribed by Daily Rhodes Authenticated and . [facility]
== END 2023-12-22 23:59 ==
LOC: RAD 09:48
PROVIDERS: PCP Internal Medicine Adolescent Medicine; Visit Provider Internal Medicine Adolescent Medicine
DX: Z87.891 Personal history of nicotine dependence (principal)
CPT/HCPCS: 76705

== ENCOUNTER 2024-01-02 13:41 | Outpatient (CLI) | payer MEDICARE, SELFPAY ==
--- NOTE | 2024-01-02 13:44 | CT_ITS ---
FINAL REPORT TECHNIQUE: Axial images were obtained from the lung apex to the mid abdomen by computed tomography. Low-dose protocol was utilized. CLINICAL HISTORY: H/O TOBACCO USE CURRENT SMOKER; SMOKED 1.5 PPD FOR 40+ YEARS DENIES ANY LUNG CONDITIONS COMPARISON: None FINDINGS: DOSE: CTDIvol: 2.9 mGy, DLP: 106.81 mGy*cm There is no axillary adenopathy. There is no hilar or mediastinal adenopathy. The heart is proper size. There is no pericardial or pleural effusion. Limited images of the upper abdomen are unremarkable. No suspicious infiltrate or nodule identified. There are calcified granulomas in the left lower lobe. IMPRESSION: No suspicious nodule identified. LUNG RADS CATEGORY 1 RECOMMENDATION: 12 month LDCT follow up Reviewed, Interpreted and Dictated by Barrett Rodriguez MD Transcribed by JENIFER Roger Authenticated and [facility]
== END 2024-01-02 23:59 ==
LOC: RAD 13:42
PROVIDERS: PCP Internal Medicine Adolescent Medicine; Visit Provider Internal Medicine Adolescent Medicine
DX: Z87.891 Personal history of nicotine dependence (principal); Z12.2 Encounter for screening for malignant neoplasm of respiratory organs
CPT/HCPCS: 71271

== ENCOUNTER 2024-01-25 13:08 | Inpatient (IN) | payer MEDICARE, SELFPAY ==
[2024-01-25] VITALS (7 sets, daily range): BP systolic 108–144; BP diastolic 65–87; PULSE 80–100; RESP 17–20; TEMP 36.8–37.1; O2SAT 96–100; BMI 23.6; BMI 20.7
--- NOTE | 2024-01-25 14:11 | XR_ITS ---
FINAL REPORT CLINICAL HISTORY: fall, weakness COMPARISON: 01/31/2023 FINDINGS: SINGLE-VIEW CHEST The heart size is normal. The mediastinum is normal. There are mild bibasilar opacities, favor atelectasis. There is no pneumothorax. IMPRESSION: Mild bibasilar atelectasis. Reviewed, Interpreted and Dictated by Job Conn III, MD Transcribed by Oma Kenney Authenticated and [facility]
--- NOTE | 2024-01-25 14:11 | CT_ITS ---
FINAL REPORT CLINICAL HISTORY: weak, hit head in fall 2w ago COMPARISON: 01/31/2023 FINDINGS: Axial images of the head were obtained without contrast. Coronal reformatted images were also obtained. This study was performed with techniques to keep radiation doses as low as reasonably achievable (ALARA). Individualized dose reduction techniques using automated exposure control or adjustment of mA and/or kV according to the patient''s size were employed. There is generalized age-appropriate atrophy. Periventricular low-attenuation areas are seen consistent with mild chronic ischemic changes. There is no evidence of intracranial hemorrhage or mass. There is no evidence of acute infarct. There is no evidence of shift of the midline structures. No skull abnormality is seen on the bone window images. There is mild mucosal thickening of the right maxillary sinus. There is anterior subluxation of the mandibular condyles of uncertain significance. IMPRESSION: Atrophy and mild periventricular chronic ischemic changes. No acute intracranial abnormality identified. Reviewed, Interpreted and Dictated by Job Conn III, MD Transcribed by Oma Kenney Authenticated and [facility]
--- NOTE | 2024-01-25 14:11 | CT_ITS ---
FINAL REPORT TECHNIQUE: Postcontrast axial images through the abdomen and pelvis were performed. This study was performed with techniques to keep radiation doses as low as reasonably achievable, (ALARA). Individualized dose reduction techniques using automated exposure control or adjustment of mA and/or kV according to the patient's size were employed. CLINICAL HISTORY: n/v/d COMPARISON: 01/30/2023 FINDINGS: Abdomen: The lung bases are clear. The liver is normal in size and attenuation. There is mild nonspecific gallbladder wall thickening. The spleen is unremarkable. The adrenals are normal. The pancreas is unremarkable. The kidneys enhance appropriately. The aorta is normal in caliber. No free fluid or adenopathy is identified. Mild vascular calcification is identified. Pelvis: The appendix is normal. There are multiple sigmoid diverticula. There is diffuse bladder wall thickening, likely inflammatory. Bilateral inguinal hernias containing bowel are identified. There is no evidence of bowel obstruction. No free fluid, free air, abscess or adenopathy is identified. IMPRESSION: Mild nonspecific gallbladder wall thickening. Bilateral inguinal hernias containing bowel. Reviewed, Interpreted and Dictated by Job Conn III, MD Transcribed by Oma Kenney Authenticated and [facility]
[2024-01-25 14:21] LABS: Basophils % 0.3 % (0.1-2.0); Eosinophils % 0.3 % (0.1-12.0); Hematocrit 50.9 % (42.0-52.0); Hemoglobin 16.6 g/dL (14.1-18.0); Lymphocytes # 1.3 K/mm3 (0.7-4.5); Lymphocytes % 12.8 % (10-50); Mean Corpuscular HGB Conc 32.5 g/dL (31.8-35.4); Mean Corpuscular Hemoglobin 35.7 pg (27.0-31.2); Mean Corpuscular Volume 109.8 fl (80-94); Mean Platelet Volume 10.2 fl (7.4-10.4); Monocytes # 0.7 K/mm3 (0.1-1.0); Monocytes % 6.7 % (1.7-9.3); Neutrophils # 7.9 K/mm3 (1.8-7.8); Neutrophils % 79.9 % (37.0-80.0); Platelet Count 213 K/mm3 (142-424); Red Blood Count 4.64 M/mm3 (4.60-6.20); Red Cell Distribution Width 13.5 % (11.5-17.5); White Blood Count 9.9 K/mm3 (4.8-10.8)
--- NOTE | 2024-01-25 14:21 | ECG_ITS ---
APPROVED REPORT Exam: Resting ECG HR:92 bpm ECG Measurements Heart Rate 92 AXES NC 142 P 8 QRSd 99 QRS 55 QT 406 T 41 QTc 456 Conclusion SINUS RHYTHM POSSIBLE ANTERIOR MYOCARDIAL INFARCTION , OF INDETERMINATE AGE [30 ms Q WAVE IN V3/V4, OR R < 0.2 mV IN V4] ABNORMAL ECG No acute STEMI, similar to previous ECG Electronically signed by : JENA GATICA, 01/25/2024 17:06:00
--- NOTE | 2024-01-25 14:23 | ED_ITS ---
Discharge Plan Disposition Patient Disposition: Admitted Clinical Impressions Clinical Impression: Acute hyponatremia, Diarrhea, Generalized weakness Discharge ED Provider: Cresencio Simon General Adult HPI <Cresencio Simon MD - Last Filed: 01/25/24 16:14> General Chief complaint: Nausea/Vomiting/Diarrhea Stated complaint: weak, shaky, off balance Time Seen by Provider: 01/25/24 13:50 Mode of Arrival: Ambulatory Source of Information: Patient and Relative Limitations: No Limitations Description of Symptoms (Recalled from ER Triage Doc. by RN): Patient reports N/V/D, increased weakness, shakey, recent falls, and decreased appetite for 1-2 weeks. History of Present Illness HPI narrative: 63-year-old male with a history of alcohol dependence, prior hyponatremia, prior alcohol withdrawal seizures presents to the ER with concerns of generalized weakness, nausea, retching but no vomiting, diarrhea (occasionally blood- streaked), and recent falls. Patient reportedly fell approximately 2 weeks ago and has felt progressively worse since that time. He is also having a sensation of being off balance. In the last 3 days patient has drank significantly less than he normally would. He reports that he usually drinks 6 beers a day however his most recent drink was 1 beer last night, and prior to that he had not drank in the last 3 days. He is anxious and shaky, no seizures, no hallucinations. Patient has never gone through medically guided withdrawal. Family at bedside is concerned that patient has previously been hyponatremic with similar symptoms. Related Data Home Medications Medication Instructions Recorded Confirmed ciprofloxacin HCl 500 mg tablet 500 mg PO BID Infection 02/01/23 02/01/23 metronidazole 500 mg tablet 500 mg PO TID Infection 02/01/23 02/01/23 Previous Rx's Medication Instructions Recorded acetaminophen 325 mg tablet 650 mg (2 x 325 mg) PO Q6HP PRN 02/02/23 Fever Or Mild Pain #0 tabs potassium chloride 20 mEq 20 meq PO BID 10 days #20 tabs 02/02/23 tablet,extended release(part/cryst) sodium chloride 1,000 mg soluble 1,000 mg PO DAILY 30 days #30 tabs 02/02/23 tablet Allergies Allergy/AdvReac Type Severity Reaction Status Date / Time No Known Allergies Allergy Verified 11/11/19 09:26 PFSH <Cresencio Simon MD - Last Filed: 01/25/24 16:14> PFSH Disclaimer: The information contained in this section may have been updated after the patient was seen, as this information can be updated by other users. Medical History Diverticulitis Social History Smoking Status: Current every day smoker tobacco type: cigarettes packs per day: 1 alcohol intake: current current occupational status: other Travel in the last 8 weeks: None <Cresencio Simon MD - Last Filed: 01/25/24 16:14> ROS Obtained: Yes All systems reviewed & no additional complaints except as documented Constitutional Constitutional: Denies chills, Reports fatigue, Denies fever(s), Denies headache(s) and Reports weakness (Generalized) Eyes Eyes: Denies change in vision ENT Ears, Nose, Mouth, and Throat: Reports dizziness, Denies headache(s), Denies nasal congestion and Denies sore throat Cardiovascular Cardiovascular: Denies chest pain, Denies dyspnea and Denies leg edema Respiratory Respiratory: Denies cough and Denies dyspnea Gastrointestinal Gastrointestingal: Reports diarrhea, hematochezia (Blood-streaked) and nausea; Denies constipation, melena or vomiting Genitourinary Male Genitourinary: Denies difficulty urinating Musculoskeletal Musculoskeletal: Denies arthralgias, Denies myalgias, Denies numbness and Denies tingling Integumentary/Breasts Skin/Breast: Denies change in pigmentation Neurologic Neurologic: Reports dizziness, Denies headache(s), Denies numbness, Denies tingling and Reports weakness (Generalized) Endocrine Endocrine: Reports fatigue Physical Exam <Cresencio Simon MD - Last Filed: 01/25/24 16:14> General General appearance: alert and in no apparent distress Head Head exam: atraumatic and normocephalic Eye Eye exam: Present PERRL and EOMI ENT ENT exam: Present mucous membranes moist Neck Neck exam: Present normal inspection and full ROM Chest Chest inspection: Present symmetric chest wall rise Respiratory Respiratory exam: Absent respiratory distress or stridor Cardiovascular Cardiovascular exam: Present regular rate and normal rhythm Abdominal Exam Abdominal exam: Present soft; Absent distention, tenderness, guarding or rebound Extremities Exam Extremities exam: Present full ROM and other (abrasion LLE, healing, no sign of infection); Absent tenderness Back Exam Back exam: Present full ROM Neurological Exam Neurological exam: Present alert, oriented X3 and other (Patient is able to complete finger-nose, however his finger wavers significantly as he is arriving at my finger, no past-pointing, normal [id number]); Absent normal gait (Unsteady, not listing to one side or the other) or motor sensory deficit Psychiatric Psychiatric exam: Present normal affect and normal mood Skin Skin exam: Present warm and dry Medical Decision Making <Cresencio Simon MD - Last Filed: 01/25/24 16:14> Diogenes Vargas Pt receiving controlled substance: No Vital Signs: 01/25/24 13:09 01/25/24 13:57 01/25/24 14:15 Temperature 98.5 F Temperature Source Oral Pulse Rate 99 H 97 H Pulse Rate [Right Radial] 98 H Respiratory Rate 20 Blood Pressure 108/65 L 108/65 L Blood Pressure [Right Arm] 119/87 Blood Pressure Mean [Right Arm] 97 Blood Pressure Source Blood Pressure Source [Right Arm] Automatic Cuff Blood Pressure Position Blood Pressure Position [Right Arm] Supine 02 Sat by Pulse Oximetry 98 97 96 Oxygen Delivery Method Room Air Room Air 01/25/24 16:59 Temperature 98.7 F Temperature Source Oral Pulse Rate 100 H Pulse Rate [Right Radial] Respiratory Rate 18 Blood Pressure 108/65 L Blood Pressure [Right Arm] Blood Pressure Mean [Right Arm] Blood Pressure Source Automatic Cuff Blood Pressure Source [Right Arm] Blood Pressure Position Sitting Blood Pressure Position [Right Arm] 02 Sat by Pulse Oximetry Oxygen Delivery Method Room Air Lab Data Lab Results 01/25/24 13:40: WBC 9.9, RBC 4.64, Hgb 16.6, Hct 50.9, MCV 109.8 H, MCH 35.7 H, MCHC 32.5, RDW 13.5, Plt Count 213, MPV 10.2, Neut % (Auto) 79.9, Lymph % (Auto) 12.8, [place] % (Auto) 6.7, Eos % (Auto) 0.3, Baso % (Auto) 0.3, Neut # (Auto) 7.9 H, Lymph # (Auto) 1.3, [place] # (Auto) 0.7, Eos # (Auto) 0.0, Baso # (Auto) 0.0, PT 10.3, INR 0.95, APTT 26.8, Sodium 118 L, Potassium 3.9, Chloride 85 L, Carbon Dioxide 24, Anion Gap 12.9, BUN 7 L, Creatinine 0.70, Estimated Creat Clear 78, Estimated GFR 114, Est GFR ( Amer) 138, Glucose 92, Calcium 8.4, Total Bilirubin 1.1, AST 78 H, ALT 59, Alkaline Phosphatase 59, Troponin I 0.03, Total Protein 5.7 L, Albumin 3.2 L, Globulin 2.5, Albumin/Globulin Ratio 1.3 01/25/24 13:40 01/25/24 13:40 Orders (Tests/Meds): ED MEDICATIONS Generic Name Dose Route Start Last Admin Trade Name Freq PRN Reason Stop Dose Admin Diazepam 10 mg 01/25/24 16:28 Diazepam 10mg/2ml Syringe IV 02/24/24 16:27 Q1HP PRN CIWA >16 Diazepam 5 mg 01/25/24 16:28 Diazepam 5mg Tablet PO 02/24/24 16:27 Q1HP PRN CIWA Score 8-15 Diazepam 5 mg 01/25/24 16:28 Diazepam 10mg/2ml Syringe IV 02/24/24 16:27 Q1HP PRN CIWA Score 8-15 Diazepam 5 mg 01/25/24 16:28 Diazepam 5mg Tablet PO 02/24/24 16:27 Q6HP PRN CIWA 2-7 Folic Acid 1 mg 01/26/24 09:00 Folic Acid 1mg Tablet PO 02/25/24 08:59 DAILY CHANDANA Sodium Chloride 1,000 mls @ 125 mls/hr 01/25/24 16:30 Sod Chlor 0.9% 1000ml Bag IV 02/24/24 16:29 .Q8H CHANDANA Multivitamins 1 each 01/25/24 17:00 Multivitamin Tablet PO 02/24/24 16:59 1700 CHANDANA Sodium Chloride 10 ml 01/25/24 13:45 Sodium Chloride 0.9% 10ml Flush Syringe IV 02/24/24 13:44 NEEDED PRN Maintain IV Site Thiamine HCl 100 mg 01/26/24 09:00 Thiamine 100mg Tablet PO 01/28/24 09:01 DAILY CHANDANA Discontinued Medications Generic Name Dose Route Start Last Admin Trade Name Freq PRN Reason Stop Dose Admin Lactated Ringer's 1,000 mls @ 999 mls/hr 01/25/24 14:11 01/25/24 14:25 Lactated Ringer's 1000 Ml Bag IV 01/25/24 15:11 999 mls/hr .Q1H1M ONE Administration Iopamidol 75 ml 01/25/24 15:23 01/25/24 15:24 Iopamidol-370 (76%);100ml Bottle IV 01/25/24 15:24 75 ml ONCE ONE Administration Ondansetron HCl 4 mg 01/25/24 14:11 01/25/24 14:25 Ondansetron 4mg/2ml Vial IV 01/25/24 14:12 4 mg ONCE ONE Administration Sodium Chloride 10 ml 01/25/24 15:23 01/25/24 15:24 Sodium Chloride 0.9% 10ml Syr (Rad Only) IV 01/25/24 15:24 10 ml ONCE ONE Administration ORDERS Category Date Time Status CT abdomen pelvis w con Stat Cat Scan 01/25/24 14:[address] head/brain wo con Stat Cat Scan 01/25/24 14:11 Completed CXR --portable [XR chest portable] Stat Exams 01/25/24 14:11 Completed Basic Metabolic Panel Routine Lab 01/25/24 22:00 Ordered CBC w/Auto Diff [Complete Blood Count Auto Diff] Stat Lab 01/25/24 13:40 Completed CMP [Comprehensive Metabolic Panel] Stat Lab 01/25/24 13:40 Completed Complete Blood Count Auto Diff AMLAB Lab 01/26/24 06:00 Ordered Comprehensive Metabolic Panel AMLAB Lab 01/26/24 06:00 Ordered Diarrhea 6-11 Panel, Cdiff PCR Stat Lab 01/25/24 16:25 Ordered Magnesium AMLAB Lab 01/26/24 06:00 Ordered Magnesium Routine Lab 01/25/24 16:28 Ordered PT INR [Prothrombin Time INR] Stat Lab 01/25/24 13:40 Completed PTT [Activated Partial Thrombo Time] Stat Lab 01/25/24 13:40 Completed Phosphorous Routine Lab 01/25/24 16:28 Ordered Prothrombin Time INR AMLAB Lab 01/26/24 06:00 Ordered Trop I [Troponin I] Stat Lab 01/25/24 13:40 Completed Troponin I Q3H Lab 01/25/24 17:15 Ordered Troponin I Q3H Lab 01/25/24 20:15 Ordered Medical Decision Narrative: In summary, this 63year old male with a history of alcohol dependence, hyponatremia, diverticulitis all of which are comorbidities of his current condition and increased overall morbidity presents to the emergency department today with generalized weakness, nausea, diarrhea, in the setting of decreased alcohol intake from his baseline. On initial evaluation patient is hemodynamically stable, tachycardia that was present on arrival has improved on my exam, blood pressure is lower but not truly hypotensive, he has a nonacute abdominal exam, cardiac exam reassuring, he has difficulty with [id number] but does not have past-pointing, [id number] normal, no other obvious deficits on exam, no nystagmus. Differential diagnosis includes but is not limited to alcohol withdrawal, electrolyte abnormality, diverticulitis, anemia, intracranial bleed from recent fall. Less likely but also possible is ACS. Based on these concerns, I ordered basic labs, coag studies, CT head, CT abdomen pelvis. ECG personally interpreted demonstrates normal sinus rhythm, rate 92, normal axis, normal HI and QTc, similar to EKG from January 2023. Patient received IV fluids, Zofran for treatment. Labs personally reviewed demonstrate no leukocytosis, no anemia, PT/INR and APTT within normal limits. Additional labs pending Imaging pending at the time of physician shift change. Patient handed off to Dr. Bruno for further management and disposition. <Damien Bruno MD - Last Filed: 01/25/24 17:19> Vital Signs: 01/25/24 13:09 01/25/24 13:57 01/25/24 14:15 Temperature 98.5 F Temperature Source Oral Pulse Rate 99 H 97 H Pulse Rate [Right Radial] 98 H Respiratory Rate 20 Blood Pressure 108/65 L 108/65 L Blood Pressure [Right Arm] 119/87 Blood Pressure Mean [Right Arm] 97 Blood Pressure Source Blood Pressure Source [Right Arm] Automatic Cuff Blood Pressure Position Blood Pressure Position [Right Arm] Supine 02 Sat by Pulse Oximetry 98 97 96 Oxygen Delivery Method Room Air Room Air 01/25/24 16:59 Temperature 98.7 F Temperature Source Oral Pulse Rate 100 H Pulse Rate [Right Radial] Respiratory Rate 18 Blood Pressure 108/65 L Blood Pressure [Right Arm] Blood Pressure Mean [Right Arm] Blood Pressure Source Automatic Cuff Blood Pressure Source [Right Arm] Blood Pressure Position Sitting Blood Pressure Position [Right Arm] 02 Sat by Pulse Oximetry Oxygen Delivery Method Room Air Lab Data Lab Results 01/25/24 13:40: WBC 9.9, RBC 4.64, Hgb 16.6, Hct 50.9, MCV 109.8 H, MCH 35.7 H, MCHC 32.5, RDW 13.5, Plt Count 213, MPV 10.2, Neut % (Auto) 79.9, Lymph % (Auto) 12.8, [place] % (Auto) 6.7, Eos % (Auto) 0.3, Baso % (Auto) 0.3, Neut # (Auto) 7.9 H, Lymph # (Auto) 1.3, [place] # (Auto) 0.7, Eos # (Auto) 0.0, Baso # (Auto) 0.0, PT 10.3, INR 0.95, APTT 26.8, Sodium 118 L, Potassium 3.9, Chloride 85 L, Carbon Dioxide 24, Anion Gap 12.9, BUN 7 L, Creatinine 0.70, Estimated Creat Clear 78, Estimated GFR 114, Est GFR ( Amer) 138, Glucose 92, Calcium 8.4, Total Bilirubin 1.1, AST 78 H, ALT 59, Alkaline Phosphatase 59, Troponin I 0.03, Total Protein 5.7 L, Albumin 3.2 L, Globulin 2.5, Albumin/Globulin Ratio 1.3 Orders (Tests/Meds): ED MEDICATIONS Generic Name Dose Route Start Last Admin Trade Name Freq PRN Reason Stop Dose Admin Diazepam 10 mg 01/25/24 16:28 Diazepam 10mg/2ml Syringe IV 02/24/24 16:27 Q1HP PRN CIWA >16 Diazepam 5 mg 01/25/24 16:28 Diazepam 5mg Tablet PO 02/24/24 16:27 Q1HP PRN CIWA Score 8-15 Diazepam 5 mg 01/25/24 16:28 Diazepam 10mg/2ml Syringe IV 02/24/24 16:27 Q1HP PRN CIWA Score 8-15 Diazepam 5 mg 01/25/24 16:28 Diazepam 5mg Tablet PO 02/24/24 16:27 Q6HP PRN CIWA 2-7 Folic Acid 1 mg 01/26/24 09:00 Folic Acid 1mg Tablet PO 02/25/24 08:59 DAILY CHANDANA Sodium Chloride 1,000 mls @ 125 mls/hr 01/25/24 16:30 Sod Chlor 0.9% 1000ml Bag IV 02/24/24 16:29 .Q8H CHANDANA Multivitamins 1 each 01/25/24 17:00 Multivitamin Tablet PO 02/24/24 16:59 1700 CHANDANA Sodium Chloride 10 ml 01/25/24 13:45 Sodium Chloride 0.9% 10ml Flush Syringe IV 02/24/24 13:44 NEEDED PRN Maintain IV Site Thiamine HCl 100 mg 01/26/24 09:00 Thiamine 100mg Tablet PO 01/28/24 09:01 DAILY CHANDANA Discontinued Medications Generic Name Dose Route Start Last Admin Trade Name Freq PRN Reason Stop Dose Admin Lactated Ringer's 1,000 mls @ 999 mls/hr 01/25/24 14:11 01/25/24 14:25 Lactated Ringer's 1000 Ml Bag IV 01/25/24 15:11 999 mls/hr .Q1H1M ONE Administration Iopamidol 75 ml 01/25/24 15:23 01/25/24 15:24 Iopamidol-370 (76%);100ml Bottle IV 01/25/24 15:24 75 ml ONCE ONE Administration Ondansetron HCl 4 mg 01/25/24 14:11 01/25/24 14:25 Ondansetron 4mg/2ml Vial IV 01/25/24 14:12 4 mg ONCE ONE Administration Sodium Chloride 10 ml 01/25/24 15:23 01/25/24 15:24 Sodium Chloride 0.9% 10ml Syr (Rad Only) IV 01/25/24 15:24 10 ml ONCE ONE Administration ORDERS Category Date Time Status CT abdomen pelvis w con Stat Cat Scan 01/25/24 14:[address] head/brain wo con Stat Cat Scan 01/25/24 14:11 Completed CXR --portable [XR chest portable] Stat Exams 01/25/24 14:11 Completed Basic Metabolic Panel Routine Lab 01/25/24 22:00 Ordered CBC w/Auto Diff [Complete Blood Count Auto Diff] Stat Lab 01/25/24 13:40 Completed CMP [Comprehensive Metabolic Panel] Stat Lab 01/25/24 13:40 Completed Complete Blood Count Auto Diff AMLAB Lab 01/26/24 06:00 Ordered Comprehensive Metabolic Panel AMLAB Lab 01/26/24 06:00 Ordered Diarrhea 6-11 Panel, Cdiff PCR Stat Lab 01/25/24 16:25 Ordered Magnesium AMLAB Lab 01/26/24 06:00 Ordered Magnesium Routine Lab 01/25/24 16:28 Ordered PT INR [Prothrombin Time INR] Stat Lab 01/25/24 13:40 Completed PTT [Activated Partial Thrombo Time] Stat Lab 01/25/24 13:40 Completed Phosphorous Routine Lab 01/25/24 16:28 Ordered Prothrombin Time INR AMLAB Lab 01/26/24 06:00 Ordered Trop I [Troponin I] Stat Lab 01/25/24 13:40 Completed Troponin I Q3H Lab 01/25/24 17:15 Ordered Troponin I Q3H Lab 01/25/24 20:15 Ordered Medical Decision Narrative: In summary, this 63year old male with a history of alcohol dependence, hyponatremia, diverticulitis all of which are comorbidities of his current condition and increased overall morbidity presents to the emergency department today with generalized weakness, nausea, diarrhea, in the setting of decreased alcohol intake from his baseline. On initial evaluation patient is hemodynamically stable, tachycardia that was present on arrival has improved on my exam, blood pressure is lower but not truly hypotensive, he has a nonacute abdominal exam, cardiac exam reassuring, he has difficulty with [id number] but does not have past-pointing, ipaz-cu-[id number] normal, no other obvious deficits on exam, no nystagmus. Differential diagnosis includes but is not limited to alcohol withdrawal, electrolyte abnormality, diverticulitis, anemia, intracranial bleed from recent fall. Less likely but also possible is ACS. Based on these concerns, I ordered basic labs, coag studies, CT head, CT abdomen pelvis. ECG personally interpreted demonstrates normal sinus rhythm, rate 92, normal axis, normal HI and QTc, similar to EKG from January 2023. Patient received IV fluids, Zofran for treatment. Labs personally reviewed demonstrate no leukocytosis, no anemia, PT/INR and APTT within normal limits. Additional labs pending Imaging pending at the time of physician shift change. Patient handed off to Dr. Bruno for further management and disposition. Kiana: I assumed primary responsibility for this patient after signout from previous physician. Independent interpretation of workup demonstrates acute hyponatremia 118. Otherwise largely unremarkable. Independent rotation of CT of head without acute abnormality. Independent rotation of CT abdomen and pelvis with what appears to be gastroenteritis. Because patient acutely weak, extensive conversation was had with patient and family regarding alcohol use habits. Patient states that he has been thinking about quitting. Has never tried medications in the past to help with this. Extensive conversation was had for 5 or 10 minutes bowel cessation with Librium, he is agreeable to this on an outpatient basis. Hospital medicine was contacted and case was discussed at length, diarrhea panel and Legionella antigen were sent. Because patient high risk for clinical decompensation, deemed appropriate for inpatient admission. Results were relayed to patient who voiced understanding and patient was agreeable to inpatient admission and management. Patient was admitted to the hospital for further definitive management. Critical Care <Cresencio Simon MD - Last Filed: 01/25/24 16:14> Critical Care Time Critical Care Time: No
[2024-01-25] MEDS: LACTATED RINGERS 1000ML 1,000 ML 999 ML IV (14:25)
[2024-01-25] MEDS: ONDANSETRON 4MG/2ML VIAL 4 MG IV (14:25)
[2024-01-25 14:28] LABS: Activated Partial Thrombo Time 26.8 seconds (22.8-30.6); INR 0.95 (0.9-1.1); Prothrombin Time 10.3 seconds (10.1-12.5)
[2024-01-25 14:50] LABS: Chloride 85 mmol/L (98-107); Sodium 118 mmol/L (136-145)
[2024-01-25 14:51] LABS: Potassium 3.9 mmoL/L (3.5-5.1)
[2024-01-25 14:53] LABS: Alanine Aminotransferase 59 U/L (12-78); Albumin Level 3.2 g/dl (3.5-5.0); Albumin/Globulin Ratio 1.3 (1.1-1.8); Alkaline Phosphatase 59 U/L (38-126); Anion Gap 12.9 mEq/L (5-15); Aspartate Amino Transferase 78 U/L (17-59); Bilirubin,Total 1.1 mg/dl (0.2-1.3); Blood Urea Nitrogen 7 mg/dl (9-20); Carbon Dioxide 24 mmol/L (22.0-30.0); Creatinine Clearance Estimated 78 mL/min (50-200); Estimated Glomerular Filt Rate 114 ml/min (>60); GFR (African American) 138 ML/MIN (>60); Globulin 2.5 g/dL (1.3-3.2); Total Protein,Serum 5.7 g/dl (6.3-8.2)
[2024-01-25 14:54] LABS: Calcium 8.4 mg/dl (8.4-10.2); Glucose 92 mg/dl (74-100)
[2024-01-25 15:05] LABS: Troponin I 0.03 ng/ml (0.00-0.034)
[2024-01-25] MEDS: IOPAMIDOL-370 (76%);100ML BOTTLE 75 ML IV (15:24)
[2024-01-25] MEDS: SODIUM CHLORIDE 0.9% 10ML SYR (RAD ONLY) 10 ML IV (15:24)
--- NOTE | 2024-01-25 16:29 | EXP.ACUTE.PN ---
Subjective *Date: 01/25/24 *Time: 16:29 Medical Exam Vital signs and Labs for Last 24 Hours: Vital Signs Temp Pulse Pulse Resp BP BP Pulse Ox 01/25/24 14:15 97 H 108/65 L 96 01/25/24 13:57 99 H 108/65 L 97 01/25/24 13:09 98.5 F 98 H 20 119/87 98 O2 Del Method 01/25/24 14:15 01/25/24 13:57 Room Air 01/25/24 13:09 Room Air Intake and Output 01/25/24 01/25/24 01/25/24 07:59 15:59 23:59 Other: Weight 72.575 kg Patient Weight 01/25/24 23:59 Weight 72.575 kg Laboratory Results - last 24 hr 01/25/24 13:40: WBC 9.9, RBC 4.64, Hgb 16.6, Hct 50.9, MCV 109.8 H, MCH 35.7 H, MCHC 32.5, RDW 13.5, Plt Count 213, MPV 10.2, Neut % (Auto) 79.9, Lymph % (Auto) 12.8, [place] % (Auto) 6.7, Eos % (Auto) 0.3, Baso % (Auto) 0.3, Neut # (Auto) 7.9 H, Lymph # (Auto) 1.3, [place] # (Auto) 0.7, Eos # (Auto) 0.0, Baso # (Auto) 0.0, PT 10.3, INR 0.95, APTT 26.8, Sodium 118 L, Potassium 3.9, Chloride 85 L, Carbon Dioxide 24, Anion Gap 12.9, BUN 7 L, Creatinine 0.70, Estimated Creat Clear 78, Estimated GFR 114, Est GFR ( Amer) 138, Glucose 92, Calcium 8.4, Total Bilirubin 1.1, AST 78 H, ALT 59, Alkaline Phosphatase 59, Troponin I 0.03, Total Protein 5.7 L, Albumin 3.2 L, Globulin 2.5, Albumin/Globulin Ratio 1.3 I & O for Labs for Last 24 Hours: Intake & Output 01/22/24 01/23/24 01/24/24 01/25/24 23:59 23:59 23:59 23:59 Weight 72.575 kg
--- NOTE | 2024-01-25 16:34 | PC.NURSE ---
Called House regarding admission
--- NOTE | 2024-01-25 16:58 | PC.NURSE ---
Report given to Alem lama RN on second floor at this time
--- NOTE | 2024-01-25 17:15 | P.HP_ITS ---
History of Present Illness *Admission Date: 01/25/24 *Reason for visit:: Weakness, falls *History of present illness: Mr. Nuñez is a 63-year-old male with history of alcoholism and nutritional deficiency. Presented to the ER because of weakness. Daughter who is with him helps supplement history. States that he has been having weakness, diarrhea, shakiness over the past 2 to 3 weeks. Has been drinking 6-8 beers a day. Has not had anything to drink since last night and previous drink was 2 days prior to that. Daughter states he fell about a week ago getting an abrasion/skin tear on his left leg and left forearm. He has progressed in his weakness and she brought him to the ER for evaluation. States he is looking a little bit better now after getting some fluids in the ER but is still quite weak. Appears somewhat anxious on exam and defers to daughter with questioning. Denies chest pain, shortness of breath, headache, nausea. Stools have been watery with occasional flecks of blood per his report. Denies any fever but does have sweats when he eats. Sodium on presentation decreased at 118. ER consulted medicine for admission given hyponatremia concerning for symptomatic as well as risk of alcohol withdrawal. On evaluation, patient has pleasant on exam. Tolerating p.o. intake. [facility] Disclaimer: The information contained in this section may have been updated after the patient was seen, as this information can be updated by other users. Medical History HTN (hypertension) Diverticulitis Family History Other No significant family history Social History Smoking Status: Current every day smoker tobacco type: cigarettes packs per day: 1 alcohol intake: current current occupational status: other Travel in the last 8 weeks: None Review of Systems Review of Systems Review of systems (narrative): 14 point review of systems performed, pertinent positives and negatives as per HPI Constitutional Constitutional: Denies headache(s) and Reports weakness (Generalized) ENT Ears, Nose, Mouth, and Throat: Reports dizziness and Denies headache(s) *Musculoskeletal Musculoskeletal: Denies numbness and Denies tingling *Neurologic Neurologic: Reports dizziness, Denies headache(s), Denies numbness, Denies tingling and Reports weakness (Generalized) Meds Home Medications and Allergies Home Medications Medication Instructions Recorded Confirmed Type escitalopram oxalate 10 mg tablet 10 mg PO DAILY 01/25/24 01/25/24 History lisinopril 10 mg tablet 10 mg PO DAILY HTN 01/25/24 01/25/24 History ondansetron HCl 8 mg tablet 8 mg PO TID PRN Nausea And Vomiting 01/25/24 01/25/24 History New Prescriptions to Start Prescriptions: Allergies Allergy/AdvReac Type Severity Reaction Status Date / Time No Known Allergies Allergy Verified 11/11/19 09:26 Exam Data for Last 24 hours Vital signs and Labs for Last 24 Hours: Temp Pulse Resp BP Pulse Ox O2 Del Method 98.7 F 100 H 18 108/65 L 96 Room Air 01/25/24 16:59 01/25/24 16:59 01/25/24 16:59 01/25/24 16:59 01/25/24 14:15 01/25/24 16:59 Laboratory Results - last 24 hr 01/25/24 13:40: WBC 9.9, RBC 4.64, Hgb 16.6, Hct 50.9, MCV 109.8 H, MCH 35.7 H, MCHC 32.5, RDW 13.5, Plt Count 213, MPV 10.2, Neut % (Auto) 79.9, Lymph % (Auto) 12.8, [place] % (Auto) 6.7, Eos % (Auto) 0.3, Baso % (Auto) 0.3, Neut # (Auto) 7.9 H, Lymph # (Auto) 1.3, [place] # (Auto) 0.7, Eos # (Auto) 0.0, Baso # (Auto) 0.0, PT 10.3, INR 0.95, APTT 26.8, Sodium 118 L, Potassium 3.9, Chloride 85 L, Carbon Dioxide 24, Anion Gap 12.9, BUN 7 L, Creatinine 0.70, Estimated Creat Clear 78, Estimated GFR 114, Est GFR ( Amer) 138, Glucose 92, Calcium 8.4, Total Bilirubin 1.1, AST 78 H, ALT 59, Alkaline Phosphatase 59, Troponin I 0.03, Total Protein 5.7 L, Albumin 3.2 L, Globulin 2.5, Albumin/Globulin Ratio 1.3 I & O for Last 24 hours: Intake & Output 01/22/24 01/23/24 01/24/24 01/25/24 23:59 23:59 23:59 23:59 Weight 72.575 kg Constitutional Constitutional: no acute distress, average body habitus and chronically ill appearing *Routine HEENT Exam Head: Present normocephalic and atraumatic Eye: Present EOMI and PERRL ENT: Present mucous membranes moist *Routine Neck Exam Neck: Present supple; Absent JVD Routine Chest/Breast/Axilla Exam Chest wall: Absent tenderness *Routine Respiratory Exam Respiratory: Present CTA bilaterally; Absent accessory muscle use, respiratory distress, rhonchi, wheezes or crackles *Routine Cardiovascular Exam Cardiovascular: Present RRR, Normal S1 and Normal S2; Absent murmur *Routine Abdominal Exam Abdominal: Present soft and normoactive bowel sounds; Absent tenderness or distended *Routine Rectal Exam Rectal:: deferred *Routine Genitalia Exam Genitalia:: deferred *Routine Extremities Exam Extremities: Absent cyanosis, clubbing or edema *Routine Skin Exam Skin: Absent cyanosis or erythema Comments: Skin tear left lateral millan, bruising and abrasion on left forearm. Senile purpura right lower extremity *Routine Neurological Exam Neurological: Present alert, oriented X3, CN II-XII intact, moving all extremities and tremors (Mild); Absent sensory deficit or altered mental status Routine Psychiatric Exam Psychiatric: Present normal affect and normal thought process; Absent suicidal ideation or homicidal ideation Assessment and Plan *Assessment and plan (1) Acute hyponatremia: Status: Acute Category: Medical Code(s): E87.1 - Hypo-osmolality and hyponatremia (2) Alcohol dependence: Status: Acute Category: Medical Code(s): F10.20 - Alcohol dependence, uncomplicated (3) Alcohol withdrawal: Status: Resolved Category: Medical Code(s): F10.939 - Alcohol use, unspecified with withdrawal, unspecified (4) Generalized weakness: Status: Acute Category: Medical Code(s): R53.1 - Weakness (5) Anxiety: Status: Acute Category: Medical Code(s): F41.9 - Anxiety disorder, unspecified Plan 63-year-old male with history of alcohol dependence who presented to the ER with weakness and falls. Symptoms worsening over the past 2 weeks. Found to have profound hyponatremia with sodium of 118. Discussed case with ER, request admission for treatment of hyponatremia and alcohol withdrawal. Medicine agreed to admit for further management. Hemodynamically stable on evaluation. Appears alert and oriented but does defer to his daughter given concern for mild confusion. Tolerating dinner tray on exam. Necessitating inpatient management. Problems addressed as follows: Hyponatremia -Concern for etiology of his weakness and slow response with deferring to his daughter for answers on exam. Initiate normal saline resuscitation at 125 cc an hour -Sodium 118 on presentation. Monitor for goal correction of 8 to 10 mEq/day -Repeat BMP this evening - Suspect related to his alcoholism and nutrition. Alcohol dependence/withdrawal - Concern for withdrawal symptoms, tremor on exam. Drinks 6-8 beers a day and goes through 1/5 of vodka a week. -Had an episode a year ago with seizure and withdrawal symptoms. Started on CIWA protocol. -Seizure precautions. -Valium per protocol based on CIWA score. Nurse driven at this time. -Thiamine and multivitamin daily - Magnesium 1.7, phosphorus 4.1. Potassium 3.9. Will monitor CBC, CMP, magnesium and phosphorus daily Diarrhea: Concern for nutritional versus from alcoholism versus infectious. Diarrhea panel pending. Further management pending results. Tobacco use disorder: Nicotine patch daily, smokes a pack to a pack and a half a day Continue Lexapro 10 mg daily for mood Continue lisinopril 10 mg daily for hypertension Zofran 4 mg as needed every 6 hours for nausea Pantoprazole for GERD/heartburn Full code Regular diet
[2024-01-25 17:38] LABS: Magnesium 1.7 mg/dl (1.6-2.3); Phosphorous 4.1 mg/dl (2.5-4.5)
[2024-01-25 17:50] LABS: Troponin I 0.04 ng/ml (0.00-0.034)
[2024-01-25] MEDS: 0.9 % SODIUM CHLORIDE 1000ML 1,000 ML 125 ML IV (18:02)
[2024-01-25] MEDS: NICOTINE 21MG/24HR PATCH 21 MG TD (18:02)
[2024-01-25 20:51] LABS: Troponin I 0.03 ng/ml (0.00-0.034)
[2024-01-25] MEDS: SODIUM CHLORIDE 0.9% 10ML VIAL 10 ML IV (21:23)
[2024-01-25] MEDS: PANTOPRAZOLE 40MG VIAL 40 MG IV (21:24)
--- NOTE | 2024-01-25 21:55 | PC.WOUNDNOTE ---
abrasion to LLE
[2024-01-25 22:47] LABS: Chloride 85 mmol/L (98-107); Potassium 3.2 mmoL/L (3.5-5.1)
[2024-01-25 22:50] LABS: Blood Urea Nitrogen 7 mg/dl (9-20); Creatinine Clearance Estimated 68 mL/min (50-200); Estimated Glomerular Filt Rate 136 ml/min (>60); GFR (African American) 165 ML/MIN (>60)
[2024-01-25 22:51] LABS: Anion Gap 6.2 mEq/L (5-15); Calcium 7.5 mg/dl (8.4-10.2); Carbon Dioxide 26 mmol/L (22.0-30.0); Glucose 113 mg/dl (74-100)
--- NOTE | 2024-01-25 22:55 | PC.NURSE ---
Irineo from lab reported reported critical sodium of 114, EQ, PIE BOTTOMER notified at this time, orders for 3% hypersonic sodium fluids, @ 32 HR.
[2024-01-25 22:58] LABS: Sodium 114 mmol/L (136-145)
[2024-01-25] MEDS: SODIUM CHLORIDE 3 % 500 ML 32 ML IV (23:28)
[2024-01-25] MEDS: POTASSIUM CHLORIDE 20MEQ TAB 40 MEQ PO (23:32)
[2024-01-26] VITALS: BP 139/89; PULSE 80; PULSE 83; RESP 16; TEMP 36.7; O2SAT 98
[2024-01-26 03:53] LABS: Chloride 90 mmol/L (98-107); Potassium 3.7 mmoL/L (3.5-5.1); Sodium 117 mmol/L (136-145)
[2024-01-26 03:56] LABS: Anion Gap 5.7 mEq/L (5-15); Blood Urea Nitrogen 5 mg/dl (9-20); Calcium 7.3 mg/dl (8.4-10.2); Carbon Dioxide 25 mmol/L (22.0-30.0); Creatinine Clearance Estimated 68 mL/min (50-200); Estimated Glomerular Filt Rate 136 ml/min (>60); GFR (African American) 165 ML/MIN (>60); Glucose 89 mg/dl (74-100)
[2024-01-26 04:00] VITALS: BP 131/71; PULSE 77; PULSE 90; RESP 18; TEMP 36.8; O2SAT 99; BMI 22.4
--- NOTE | 2024-01-26 05:47 | PC.NURSE ---
Pt is alert and oriented x4, and currently tolerating RA well. Pt has no complaints. Pt CIWA scores have been a 0 throughout this shift. Pt has critical labs and has been treated per MAR. Pt c/o of moderate pain this shift as well. Pt denies needs at this time.
[2024-01-26 06:57] LABS: Basophils # 0.1 K/mm3 (0-0.2); Basophils % 0.5 % (0.1-2.0); Eosinophils # 0.1 K/mm3 (0.0-0.4); Eosinophils % 1.1 % (0.1-12.0); Hematocrit 46.6 % (42.0-52.0); Hemoglobin 15.5 g/dL (14.1-18.0); Lymphocytes # 2.3 K/mm3 (0.7-4.5); Lymphocytes % 20.8 % (10-50); Mean Corpuscular HGB Conc 33.2 g/dL (31.8-35.4); Mean Corpuscular Volume 108.2 fl (80-94); Mean Platelet Volume 9.9 fl (7.4-10.4); Monocytes # 0.8 K/mm3 (0.1-1.0); Monocytes % 7.7 % (1.7-9.3); Neutrophils # 7.6 K/mm3 (1.8-7.8); Neutrophils % 69.9 % (37.0-80.0); Platelet Count 165 K/mm3 (142-424); Red Blood Count 4.31 M/mm3 (4.60-6.20); Red Cell Distribution Width 13.3 % (11.5-17.5); White Blood Count 10.9 K/mm3 (4.8-10.8)
[2024-01-26 07:04] LABS: INR 0.99 (0.9-1.1); Prothrombin Time 10.7 seconds (10.1-12.5)
[2024-01-26 07:07] LABS: Alanine Aminotransferase 47 U/L (12-78); Albumin Level 2.7 g/dl (3.5-5.0); Albumin/Globulin Ratio 1.1 (1.1-1.8); Alkaline Phosphatase 49 U/L (38-126); Anion Gap 5.6 mEq/L (5-15); Aspartate Amino Transferase 67 U/L (17-59); Blood Urea Nitrogen 5 mg/dl (9-20); Calcium 7.7 mg/dl (8.4-10.2); Carbon Dioxide 28 mmol/L (22.0-30.0); Chloride 90 mmol/L (98-107); Creatinine Clearance Estimated 73 mL/min (50-200); Estimated Glomerular Filt Rate 136 ml/min (>60); GFR (African American) 165 ML/MIN (>60); Globulin 2.4 g/dL (1.3-3.2); Glucose 86 mg/dl (74-100); Magnesium 1.6 mg/dl (1.6-2.3); Potassium 3.6 mmoL/L (3.5-5.1); Sodium 120 mmol/L (136-145); Total Protein,Serum 5.1 g/dl (6.3-8.2)
[2024-01-26 07:39] LABS: Adenovirus F 40/41, stool Not Detected (NotDetected); Astrovirus Not Detected (NotDetected); Campylobacter Not Detected (NotDetected); Clostridium Difficile A/B, PCR Not Detected (NotDetected); Cryptosporidium Not Detected (NotDetected); Cyclospora Cayetanesis Not Detected (NotDetected); Entamoeba histolytica Not Detected (NotDetected); Enteroaggregative E coli Not Detected (NotDetected); Enteropathogenic E coli Not Detected (NotDetected); Enterotoxigenic E coli Not Detected (NotDetected); Giardia lamblia Not Detected (NotDetected); Norovirus Not Detected (NotDetected); Plesimonas Shigalloides, PCR Not Detected (NotDetected); Rotavirus A Not Detected (NotDetected); Salmonella, PCR Not Detected (NotDetected); Sapovirus Not Detected (NotDetected); Shiga-like toxin E coli Not Detected (NotDetected); Shigella Enterovasive E coli Not Detected (NotDetected); Vibrio Cholerae Not Detected (NotDetected); Vibrio, PCR Not Detected (NotDetected); Yersinia Entercolitica, PCR Not Detected (NotDetected)
--- NOTE | 2024-01-26 07:56 | HMH.PHAINT1 ---
Pharmacy Intervention Comments: USED LIST FROM OUTPATIENT PHARMACY TO VERIFY HOME MEDICATION LIST
[2024-01-26 08:00] VITALS: BP 108/70; PULSE 80; PULSE 81; RESP 16; TEMP 36.8; O2SAT 98
[2024-01-26] MEDS: ACETAMINOPHEN 325MG TAB 650 MG PO (08:39)
[2024-01-26] MEDS: CITALOPRAM 20MG TABLET 20 MG PO (08:41)
[2024-01-26] MEDS: LISINOPRIL 10MG TABLET 10 MG PO (08:41)
[2024-01-26] MEDS: FOLIC ACID 1MG TABLET 1 MG PO (08:41)
[2024-01-26] MEDS: THIAMINE 100MG TABLET 100 MG PO (08:41)
[2024-01-26] MEDS: SODIUM CHLORIDE 0.9% 10ML VIAL 10 ML IV ×2 (08:42→21:26)
[2024-01-26] MEDS: PANTOPRAZOLE 40MG VIAL 40 MG IV ×2 (08:42→21:26)
[2024-01-26] MEDS: MAGNESIUM SULFATE IN WATER 2 GM/50 ML PIGGYBACK IV (08:52)
[2024-01-26 08:56] LABS: Vitamin B12 977 pg/mL (239-931)
[2024-01-26 12:00] VITALS: BP 122/81; PULSE 75; PULSE 78; RESP 16; TEMP 36.6; O2SAT 100
--- NOTE | 2024-01-26 13:34 | HMH.PTEV ---
Physical Therapy Evaluation Rehab PT IP Evaluation Start: 01/26/24 10:36 Freq: ONCE Status: Active Protocol: Document 01/26/24 13:31 PHORMARINA (Rec: 01/26/24 13:34 PHORNE Laptop) Subjective/History History History 63 yowm adm to [facility] with dehydration and hyponatremia. He has PMH of HTN, alcoholism and nutritional deficiency. He reports he lives alone, no LAVON the home and he is generally independent with all mobility without AD at baseline. Subjective Subjective Currently he reports no pain or discomfort and readily agrees to mobility assessment. New diagnosis of cancer in past 12 No months? Rehab PT IP Eval Objective Appearance Patient Behavior Appropriate Patient Orientation Person,Place,Time Difficulty following instructions none Speech Pattern Clear Ambulation Patient Able to Ambulate Yes Ambulation Observation IP General Gait Pattern Observation No Deviations/Normal Ambulation Distance (feet) 50 Ambulation Assistive Device None Ambulation Ability Independent Balance Ability to Arise Able, uses arms to help Sitting Balance Steady, safe Standing Balance Steady, wide stance Dynamic Sitting Balance Ability Good Dynamic Standing Balance Ability Good Transfers Bed Transfer Ability Independent Chair Transfer Ability Independent Sit to Stand Bed Transfer Ability Independent Sit to Stand Chair Transfer Ability Independent Rehab PT IP prob,goals,plan Problems Date of Evaluation: 01/26/24 Discharge Plan PT Discharge Plan Pt is at baseline for all mobility at this time and has no current inpatient therapy needs. He is appropriate to return home once medically stable for d/c. Eval Complexity Eval Charge Codes 87354 - High Complexity PHYSICIAN CERTIFICATION: I certify the specified therapy services for Lopez Nuñez are required, authorized, and reviewed every 30 days.
--- NOTE | 2024-01-26 13:47 | HMH.OTEV ---
OT Inpatient Evaluation Rehab OT IP Evaluation Start: 01/26/24 10:36 Freq: ONCE Status: Active Protocol: Document 01/26/24 13:40 SATURNINO (Rec: 01/26/24 13:47 SATURNINO [id number]) Rehab OT IP Assessment Subjective History Mr. Nuñez is a 63-year-old male with history of alcoholism and nutritional deficiency. Presented to the ER because of weakness. Daughter who is with him helps supplement history. States that he has been having weakness, diarrhea, shakiness over the past 2 to 3 weeks. Has been drinking 6-8 beers a day. Has not had anything to drink since last night and previous drink was 2 days prior to that. Daughter states he fell about a week ago getting an abrasion/skin tear on his left leg and left forearm. He has progressed in his weakness and she brought him to the ER for evaluation. States he is looking a little bit better now after getting some fluids in the ER but is still quite weak. Appears somewhat anxious on exam and defers to daughter with questioning. Denies chest pain, shortness of breath, headache, nausea. Stools have been watery with occasional flecks of blood per his report . Denies any fever but does have sweats when he eats. Sodium on presentation decreased at 118. ER consulted medicine for admission given hyponatremia concerning for symptomatic as well as risk of alcohol withdrawal. On evaluation, patient has pleasant on exam. Tolerating p.o. intake. Patient lives alone in 1 story home with no LAVON. Independent with ADLs and fx'l mobility. Dtr assist with transportation as needed. Subjective I can get up. Analysis Patient's safety awareness during bed mobility, transfers, toileting and fx'l mobility within room. Patient completed all task independently. No LOB noted. Objective Patient Orientation Person,Name,Age,Birthday,Year Right Upper Extremity Gross ROM WFL Left Upper Extremity Gross ROM WFL Bed Mobility bed mobility - supine/sit Assist Level Independent Transfer Training Sit/Stand Transfer,Sit/Stand/ Step Transfer,Sit/Stand/Pivot Transfer Assist Level Independent Chair Transfer Ability Independent Chair Transfer Technique Sit to/from Ambulatory Chair Transfer Assistive Devices None Lower Body Dressing Ability Independent Performing Toilet Hygiene Ability Independent Overall Commode/Toilet Transfer Ability Independent Commode/Toilet Transfer Technique Sit to/from Ambulatory Rehab OT IP prob,goals,plan Problems Date of Evaluation: 01/26/24 Rehab Potential Rehab Potential Innapropriate for Skilled Therapy Discharge Plan OT Discharge Plan Patient appears to be at baseline. Recommend patient to return back home after medical d/c. Eval Complexity Eval Charge Codes 15045 - Low Complexity PHYSICIAN CERTIFICATION: I certify the specified therapy services for Lopez Nuñez are required, authorized, and reviewed every 30 days.
[2024-01-26 15:05] LABS: Chloride 92 mmol/L (98-107); Potassium 3.5 mmoL/L (3.5-5.1); Sodium 117 mmol/L (136-145)
[2024-01-26 15:08] LABS: Anion Gap 6.5 mEq/L (5-15); Blood Urea Nitrogen 4 mg/dl (9-20); Calcium 7.1 mg/dl (8.4-10.2); Carbon Dioxide 22 mmol/L (22.0-30.0); Creatinine Clearance Estimated 73 mL/min (50-200); Estimated Glomerular Filt Rate 168 ml/min (>60); GFR (African American) 203 ML/MIN (>60); Glucose 137 mg/dl (74-100)
[2024-01-26 16:00] VITALS: BP 129/69; PULSE 76; PULSE 85; RESP 17; TEMP 36.6; O2SAT 96
--- NOTE | 2024-01-26 16:08 | EXP.ACUTE.PN ---
Subjective *Date: 01/26/24 *Time: 16:23 Interval history: No withdrawal at night. Low CIWA scores. Admitted for treatment. Tolerating p.o. intake. No nausea or vomiting. Having bowel movements. Sodium decreased, transitioned to hypertonic saline. Stable on room air. Medical Exam Vital signs and Labs for Last 24 Hours: Vital Signs Temp Pulse Pulse Resp BP BP Pulse Ox 01/26/24 15:00 01/26/24 12:58 01/26/24 12:00 75 01/26/24 12:00 98 F 78 16 122/81 100 01/26/24 10:56 01/26/24 09:00 01/26/24 08:00 98 01/26/24 08:00 80 01/26/24 08:00 98.2 F 81 16 108/70 L 98 01/26/24 05:00 01/26/24 04:00 98.2 F 77 18 131/71 99 01/26/24 04:00 90 01/26/24 03:00 01/26/24 01:00 01/26/24 00:00 98.0 F 83 16 139/89 98 01/26/24 00:00 80 01/25/24 23:26 80 01/25/24 23:00 01/25/24 21:00 01/25/24 20:00 01/25/24 20:00 98.4 F 81 18 132/78 100 01/25/24 19:00 01/25/24 18:27 01/25/24 17:00 98.3 F 92 H 17 144/75 H 100 01/25/24 16:59 98.7 F 100 H 18 108/65 L O2 Del Method 01/26/24 15:00 Room Air 01/26/24 12:58 Room Air 01/26/24 12:00 01/26/24 12:00 01/26/24 10:56 Room Air 01/26/24 09:00 Room Air 01/26/24 08:00 Room Air 01/26/24 08:00 01/26/24 08:00 Room Air 01/26/24 05:00 Room Air 01/26/24 04:00 Room Air 01/26/24 04:00 01/26/24 03:00 Room Air 01/26/24 01:00 Room Air 01/26/24 00:00 Room Air 01/26/24 00:00 01/25/24 23:26 01/25/24 23:00 Room Air 01/25/24 21:00 Room Air 01/25/24 20:00 Room Air 01/25/24 20:00 Room Air 01/25/24 19:00 Room Air 01/25/24 18:27 Room Air 01/25/24 17:00 Room Air 01/25/24 16:59 Room Air Intake and Output 01/26/24 01/26/24 01/26/24 07:59 15:59 23:59 Intake Total 625 / 1345 720 / 1345 Output Total 0 / 0 0 / 0 Balance 625 / 1345 720 / 1345 Intake: Intake, Oral Amount 720 / 720 Intake, Total IV Amount 625 / 625 0.9 % Sodium Chloride 1000ML 1, 625 / 625 000 ml @ 125 mls/hr IV .Q8H [facility] Rx#:[id number] Output: Output, Urine Amount 0 / 0 0 / 0 Other: Number of Unmeasured Voids 1 1 Number of Bowel Movements 1 Weight 68.492 kg Patient Weight 01/26/24 23:59 Weight 68.492 kg Laboratory Results - last 24 hr 01/25/24 07:31: Stl Aeromonas (PCR) Not detected, Stl C. cayetanensis PCR Not detected, Stool Rotavirus (PCR) Not detected, Stl Adenov F 40/41 PCR Not detected, Stool Astrovirus (PCR) Not detected, Stool Campylobacter PCR Not detected, Stl C.difficile Tox PCR Not detected, Stool Cryptosporidium PCR Not detected, Stl E.coli Shiga Tox PCR Not detected, Stool E coli O157 PCR Not detected, Stl Enterotoxigenic E PCR Not detected, Stool EPEC (PCR) Not detected, Stool EAEC (PCR) Not detected, Stl E. histolytica PCR Not detected, Stool Giardia Lamblia PCR Not detected, Stool Salmonella PCR Not detected, Stool Sapovirus (PCR) Not detected, Stl P. shigelloides PCR Not detected, Stl Shigella/EIEC PCR Not detected, St Y.enterocolitica PCR Not detected, Stool Vibrio (PCR) Not detected, Stl Vibrio cholerae PCR Not detected, Stl Norovirus GI/GII PCR Not detected 01/25/24 17:00: Phosphorus 4.1, Magnesium 1.7, Troponin I 0.04 H 05/08/24 20:23: Troponin I 0.03 01/25/24 22:11: Sodium 114 L*, Potassium 3.2 L, Chloride 85 L, Carbon Dioxide 26, Anion Gap 6.2, BUN 7 L, Creatinine 0.60 L, Estimated Creat Clear 68, Estimated GFR 136, Est GFR ([facility] Amer) 165, Glucose 113 H D, Calcium 7.5 L 01/26/24 03:43: Sodium 117 L, Potassium 3.7, Chloride 90 L, Carbon Dioxide 25, Anion Gap 5.7, BUN 5 L D, Creatinine 0.60 L, Estimated Creat Clear 68, Estimated GFR 136, Est GFR ([facility] Amer) 165, Glucose 89 D, Calcium 7.3 L 01/26/24 06:31: WBC 10.9 H, RBC 4.31 L, Hgb 15.5, Hct 46.6, MCV 108.2 H, MCH 36.0 H, MCHC 33.2, RDW 13.3, Plt Count 165, MPV 9.9, Neut % (Auto) 69.9, Lymph % (Auto) 20.8, [place] % (Auto) 7.7, Eos % (Auto) 1.1, Baso % (Auto) 0.5, Neut # (Auto) 7.6, Lymph # (Auto) 2.3, [place] # (Auto) 0.8, Eos # (Auto) 0.1, Baso # (Auto) 0.1, PT 10.7, INR 0.99, Sodium 120 L, Potassium 3.6, Chloride 90 L, Carbon Dioxide 28, Anion Gap 5.6, BUN 5 L, Creatinine 0.60 L, Estimated Creat Clear 73, Estimated GFR 136, Est GFR ( Amer) 165, Glucose 86, Calcium 7.7 L, Magnesium 1.6, Total Bilirubin 1.0, AST 67 H, ALT 47, Alkaline Phosphatase 49, Total Protein 5.1 L, Albumin 2.7 L D, Globulin 2.4, Albumin/Globulin Ratio 1.1, Vitamin B12 977 H 01/26/24 14:30: Sodium 117 L, Potassium 3.5, Chloride 92 L, Carbon Dioxide 22, Anion Gap 6.5, BUN 4 L, Creatinine 0.50 L, Estimated Creat Clear 73, Estimated GFR 168, Est GFR ( Amer) 203 D, Glucose 137 H D, Calcium 7.1 L I & O for Labs for Last 24 Hours: Intake & Output 01/23/24 01/24/24 01/25/24 01/26/24 23:59 23:59 23:59 23:59 Intake Total 270 / 895 1345 / 1345 Output Total 0 / 0 0 / 0 Balance 270 / 895 1345 / 1345 Weight 63.594 kg 68.492 kg Constitutional: Present no acute distress, average body habitus and chronically ill appearing Head: Present atraumatic and normocephalic Neck: Present normal inspection Respiratory: Present CTA bilaterally and normal respiratory effort; Absent rhonchi, wheezes or crackles Cardiac: Present Reg Rate and Rhythm Extremities: Present normal inspection and full ROM Skin: Absent erythema Comment:: Stable skin tear left lower extremity Neuro: Present Grossly Intact, alert, awake, oriented x 3 and moves all extremities Assessment and Plan *Assessment and plan (1) Acute hyponatremia: Status: Acute Category: Medical Code(s): E87.1 - Hypo-osmolality and hyponatremia (2) Alcohol dependence: Status: Acute Category: Medical Code(s): F10.20 - Alcohol dependence, uncomplicated (3) Alcohol withdrawal: Status: Resolved Category: Medical Code(s): F10.939 - Alcohol use, unspecified with withdrawal, unspecified (4) Generalized weakness: Status: Acute Category: Medical Code(s): R53.1 - Weakness (5) Anxiety: Status: Acute Category: Medical Code(s): F41.9 - Anxiety disorder, unspecified Plan 63-year-old male with history of alcohol dependence who presented to the ER with weakness and falls. Symptoms worsening over the past 2 weeks. Found to have profound hyponatremia with sodium of 118. Discussed case with ER, request admission for treatment of hyponatremia and alcohol withdrawal. Medicine agreed to admit for further management. Hemodynamically stable on evaluation. Appears alert and oriented but does defer to his daughter given concern for mild confusion. Tolerating dinner tray on exam. Necessitating inpatient management. Problems addressed as follows: Hyponatremia -Concern for etiology of his weakness and slow response with deferring to his daughter for answers on exam. -Urine sodium pending. Initiated on hypertonic saline overnight. Sodium 120 this morning, repeat lab this afternoon, monitoring sodium every 8 hours. - Sodium 118 on presentation. Monitor for goal correction of 8 to 10 mEq/day - Suspect related to his alcoholism and nutrition vs SIADH -High risk of decompensation. Alcohol dependence/withdrawal - Concern for withdrawal symptoms, tremor on exam. Drinks 6-8 beers a day and goes through 1/5 of vodka a week. -Had an episode a year ago with seizure and withdrawal symptoms. Started on CIWA protocol. -Seizure precautions. -Valium per protocol based on CIWA score. Nurse driven at this time. -Thiamine and multivitamin daily - Magnesium 1.6, phosphorus 4.1. Potassium 4.2. Will monitor CBC, CMP, magnesium and phosphorus daily Diarrhea: Concern for nutritional versus from alcoholism versus infectious. Diarrhea panel pending. Further management pending results. Tobacco use disorder: Nicotine patch daily, smokes a pack to a pack and a half a day Skin tear on left leg, mupirocin as needed topically 3 times a day Continue Lexapro 10 mg daily for mood Continue lisinopril 10 mg daily for hypertension Zofran 4 mg as needed every 6 hours for nausea Pantoprazole for GERD/heartburn Full code Regular diet
[2024-01-26] MEDS: MUPIROCIN 2% OINTMENT 22GM TUBE TP ×2 (16:35→21:28)
[2024-01-26] MEDS: NICOTINE 21MG/24HR PATCH 21 MG TD (16:47)
[2024-01-26] MEDS: MULTIVITAMIN TABLET 1 EACH PO (16:47)
--- NOTE | 2024-01-26 18:06 | PC.NURSE ---
Patient A&Ox4 throughout shift. Tolerating room air well. Patient has Mupirocin applied with a non-stick bandage and tegaderm applied to LLE abrasion. CIWA discontinued per protocol after 3 consecutive scores of 0. Right AC IV discontinued due to leaking. New 20g in right forearm IV inserted. No other complaints this shift.
[2024-01-26 20:00] VITALS: BP 135/79; PULSE 100; PULSE 80; RESP 16; TEMP 36.9; O2SAT 100
--- NOTE | 2024-01-26 20:54 | PC.NURSE ---
unable to find pt sodium chloride tab, contacted avail pharmacy at this time.
--- NOTE | 2024-01-26 21:03 | PC.NURSE ---
Paged digital content marketing manager in house pharmacy at this time
--- NOTE | 2024-01-26 21:07 | PC.NURSE ---
spoke with sarah from pharmacy and informed him that sodium tablet is not available and he advised to give sodium via IV route. Contacted EQ. DOCUMENTATION CLERK at this time to inform him of pharmacy recommendation for sodium 3% IV. new order of Sodium Chloride 3% received at this time.
[2024-01-26] MEDS: SODIUM CHLORIDE 3 % 500 ML 33 ML IV (21:56)
[2024-01-26 22:35] LABS: Chloride 90 mmol/L (98-107); Potassium 3.4 mmoL/L (3.5-5.1); Sodium 116 mmol/L (136-145)
[2024-01-26 22:38] LABS: Anion Gap 3.4 mEq/L (5-15); Blood Urea Nitrogen 5 mg/dl (9-20); Calcium 7.1 mg/dl (8.4-10.2); Carbon Dioxide 26 mmol/L (22.0-30.0); Creatinine Clearance Estimated 73 mL/min (50-200); Estimated Glomerular Filt Rate 136 ml/min (>60); GFR (African American) 165 ML/MIN (>60); Glucose 111 mg/dl (74-100)
[2024-01-27] VITALS (7 sets, daily range): BP systolic 109–143; BP diastolic 69–86; PULSE 64–100; RESP 14–21; TEMP 36.6–37.4; O2SAT 97–100; BMI 22.2; BMI 22.1
[2024-01-27 02:08] LABS: Chloride 94 mmol/L (98-107); Sodium 120 mmol/L (136-145)
[2024-01-27 02:09] LABS: Potassium 3.3 mmoL/L (3.5-5.1)
[2024-01-27 02:12] LABS: Anion Gap 2.3 mEq/L (5-15); Blood Urea Nitrogen 4 mg/dl (9-20); Calcium 7.2 mg/dl (8.4-10.2); Carbon Dioxide 27 mmol/L (22.0-30.0); Creatinine Clearance Estimated 73 mL/min (50-200); Estimated Glomerular Filt Rate 168 ml/min (>60); GFR (African American) 203 ML/MIN (>60); Glucose 90 mg/dl (74-100)
[2024-01-27] MEDS: KCl 20mEq/100ml 100 ML 50 MEQ IV ×3 (02:15→07:02)
--- NOTE | 2024-01-27 05:17 | PC.NURSE ---
Pt is salert and oriented x4 and currently tolerating RA well.Pt has slept well this shift and denies needs, Pt sodium chloride and Potassium are currently infusing and pt is tolerating IV therapy well. No other acute changes thus far.
[2024-01-27 06:48] LABS: Basophils % 0.3 % (0.1-2.0); Eosinophils # 0.1 K/mm3 (0.0-0.4); Eosinophils % 1.3 % (0.1-12.0); Hemoglobin 14.5 g/dL (14.1-18.0); Lymphocytes # 1.8 K/mm3 (0.7-4.5); Lymphocytes % 21.4 % (10-50); Mean Corpuscular Hemoglobin 35.4 pg (27.0-31.2); Mean Corpuscular Volume 107.3 fl (80-94); Mean Platelet Volume 9.8 fl (7.4-10.4); Monocytes # 0.8 K/mm3 (0.1-1.0); Monocytes % 9.5 % (1.7-9.3); Neutrophils # 5.7 K/mm3 (1.8-7.8); Neutrophils % 67.5 % (37.0-80.0); Platelet Count 168 K/mm3 (142-424); Red Cell Distribution Width 13.4 % (11.5-17.5); White Blood Count 8.4 K/mm3 (4.8-10.8)
[2024-01-27 07:01] LABS: Alanine Aminotransferase 44 U/L (12-78); Albumin Level 2.5 g/dl (3.5-5.0); Albumin/Globulin Ratio 1.1 (1.1-1.8); Alkaline Phosphatase 47 U/L (38-126); Aspartate Amino Transferase 58 U/L (17-59); Bilirubin,Total 0.7 mg/dl (0.2-1.3); Blood Urea Nitrogen 4 mg/dl (9-20); Calcium 7.4 mg/dl (8.4-10.2); Carbon Dioxide 28 mmol/L (22.0-30.0); Chloride 94 mmol/L (98-107); Creatinine Clearance Estimated 73 mL/min (50-200); Estimated Glomerular Filt Rate 168 ml/min (>60); GFR (African American) 203 ML/MIN (>60); Globulin 2.3 g/dL (1.3-3.2); Glucose 81 mg/dl (74-100); Magnesium 1.9 mg/dl (1.6-2.3); Sodium 125 mmol/L (136-145); Total Protein,Serum 4.8 g/dl (6.3-8.2)
[2024-01-27 08:00] LABS: Phosphorous 2.8 mg/dl (2.5-4.5)
[2024-01-27] MEDS: MUPIROCIN 2% OINTMENT 22GM TUBE TP ×3 (09:53→21:04)
[2024-01-27] MEDS: PANTOPRAZOLE 40MG VIAL 40 MG IV ×2 (09:53→21:04)
[2024-01-27] MEDS: FOLIC ACID 1MG TABLET 1 MG PO (09:53)
[2024-01-27] MEDS: CITALOPRAM 20MG TABLET 20 MG PO (09:53)
[2024-01-27] MEDS: THIAMINE 100MG TABLET 100 MG PO (09:53)
[2024-01-27] MEDS: SODIUM CHLORIDE 0.9% 10ML VIAL 10 ML IV (09:53)
[2024-01-27] MEDS: LISINOPRIL 10MG TABLET 10 MG PO (09:53)
[2024-01-27] MEDS: SODIUM CHLORIDE 1,000MG TABLET 500 MG PO ×2 (09:55→21:04)
[2024-01-27] MEDS: ACETAMINOPHEN 325MG TAB 650 MG PO ×3 (11:49→23:30)
--- NOTE | 2024-01-27 14:36 | P.PN_ITS ---
Subjective *Date: 01/27/24 *Time: 14:36 Interval history: Patient feeling little better this morning. Urine sodium returned, patient has SIADH. Discussed fluid restriction this morning on rounds. Stable on room air. No nausea or vomiting. No chest pain. Complaining of shoulder discomfort and chronic upper back pain. Afebrile and hemodynamically stable. Medical Exam Vital signs and Labs for Last 24 Hours: Vital Signs Temp Pulse Pulse Resp BP Pulse Ox O2 Del Method 01/27/24 12:50 99.3 F 90 14 143/86 H 99 Room Air 01/27/24 08:00 100 H 01/27/24 08:00 98.3 F 83 17 134/78 99 Room Air 01/27/24 06:51 Room Air 01/27/24 04:40 Room Air 01/27/24 04:00 98.3 F 64 20 117/69 98 Room Air 01/27/24 04:00 80 01/27/24 03:00 Room Air 01/27/24 01:00 Room Air 01/27/24 00:00 70 01/27/24 00:00 97.8 F 78 21 138/84 100 Room Air 01/26/24 22:51 Room Air 01/26/24 21:00 Room Air 01/26/24 20:00 100 H 01/26/24 20:00 98.4 F 80 16 135/79 100 Room Air 01/26/24 20:00 Room Air 01/26/24 18:30 Room Air 01/26/24 17:00 Room Air 01/26/24 16:00 85 01/26/24 16:00 98 F 76 17 129/69 96 Room Air 01/26/24 15:00 Room Air Intake and Output 01/26/24 01/27/24 01/27/24 23:59 07:59 15:59 Intake Total 1286 / 2631 415 / 415 Output Total 0 / 0 0 / 0 0 / 0 Balance 1286 / 2631 0 / 415 415 / 415 Intake: Intake, Oral Amount 720 / 1440 415 / 415 Intake, Total IV Amount 566 / 1191 0.9 % Sodium Chloride 1000ML 1, 500 / 1125 000 ml @ 125 mls/hr IV .Q8H [facility] Rx#:[id number] Sodium Chloride 3 % 500 ml @ 33 66 / 66 mls/hr IV .[id number] ONE Rx#: [id number] Output: Output, Urine Amount 0 / 0 0 / 0 0 / 0 Other: Number of Unmeasured Voids 1 1 1 Number of Bowel Movements 1 Weight 68.084 kg 68 kg Patient Weight 01/27/24 23:59 Weight 68 kg Laboratory Results - last 24 hr 01/26/24 14:30: Sodium 117 L, Potassium 3.5, Chloride 92 L, Carbon Dioxide 22, Anion Gap 6.5, BUN 4 L, Creatinine 0.50 L, Estimated Creat Clear 73, Estimated GFR 168, Est GFR ([facility] Amer) 203 D, Glucose 137 H D, Calcium 7.1 L 01/26/24 18:46: Urine Sodium 76.0 01/26/24 22:19: Sodium 116 L, Potassium 3.4 L, Chloride 90 L, Carbon Dioxide 26, Anion Gap 3.4 L, BUN 5 L, Creatinine 0.60 L, Estimated Creat Clear 73, Estimated GFR 136, Est GFR ([facility] Amer) 165, Glucose 111 H, Calcium 7.1 L 01/27/24 01:55: Sodium 120 L, Potassium 3.3 L, Chloride 94 L, Carbon Dioxide 27, Anion Gap 2.3 L, BUN 4 L, Creatinine 0.50 L, Estimated Creat Clear 73, Estimated GFR 168, Est GFR ([facility] Amer) 203 D, Glucose 90, Calcium 7.2 L 01/27/24 06:20: WBC 8.4, RBC 4.10 L, Hgb 14.5, Hct 44.0, MCV 107.3 H, MCH 35.4 H , MCHC 33.0, RDW 13.4, Plt Count 168, MPV 9.8, Neut % (Auto) 67.5, Lymph % (Auto) 21.4, Josephine % (Auto) 9.5 H, Eos % (Auto) 1.3, Baso % (Auto) 0.3, Neut # (A uto) 5.7, Lymph # (Auto) 1.8, Josephine # (Auto) 0.8, Eos # (Auto) 0.1, Baso # (Auto) 0.0, Sodium 125 L, Potassium 4.0 D, Chloride 94 L, Carbon Dioxide 28, Anion Gap 7.0, BUN 4 L, Creatinine 0.50 L, Estimated Creat Clear 73, Estimated GFR 168, Est GFR ([facility] Amer) 203, Glucose 81, Calcium 7.4 L, Phosphorus 2.8 D, Magnesium 1.9 D, Total Bilirubin 0.7, AST 58, ALT 44, Alkaline Phosphatase 47, Total Protein 4.8 L, Albumin 2.5 L, Globulin 2.3, Albumin/Globulin Ratio 1.1 I & O for Labs for Last 24 Hours: Intake & Output 01/24/24 01/25/24 01/26/24 01/27/24 23:59 23:59 23:59 23:59 Intake Total 270 / 895 2631 / 2631 415 / 415 Output Total 0 / 0 0 / 0 0 / 0 Balance 270 / 895 2631 / 2631 415 / 415 Weight 63.594 kg 68.492 kg 68 kg Constitutional: Present no acute distress, average body habitus and chronically ill appearing Head: Present atraumatic and normocephalic Neck: Present normal inspection Respiratory: Present CTA bilaterally and normal respiratory effort; Absent rhonchi, wheezes or crackles Cardiac: Present Reg Rate and Rhythm Extremities: Present normal inspection and full ROM Skin: Absent erythema Comment:: Stable skin tear left lower extremity Neuro: Present Grossly Intact, alert, awake, oriented x 3 and moves all extremities Assessment and Plan *Assessment and plan (1) SIADH (syndrome of inappropriate ADH production): Status: Acute Category: Medical Code(s): E22.2 - Syndrome of inappropriate secretion of antidiuretic hormone (2) Acute hyponatremia: Status: Acute Category: Medical Code(s): E87.1 - Hypo-osmolality and hyponatremia (3) Alcohol dependence: Status: Acute Category: Medical Code(s): F10.20 - Alcohol dependence, uncomplicated (4) Alcohol withdrawal: Status: Resolved Category: Medical Code(s): F10.939 - Alcohol use, unspecified with withdrawal, unspecified (5) Generalized weakness: Status: Acute Category: Medical Code(s): R53.1 - Weakness (6) Anxiety: Status: Acute Category: Medical Code(s): F41.9 - Anxiety disorder, unspecified Plan 63-year-old male with history of alcohol dependence who presented to the ER with weakness and falls. Symptoms worsening over the past 2 weeks. Found to have profound hyponatremia with sodium of 118. Discussed case with ER, request admission for treatment of hyponatremia and alcohol withdrawal. Medicine agreed to admit for further management. Hemodynamically stable on evaluation. At baseline mentation today. Urine sodium returned elevated inappropriately, consistent with SIADH. Initiating sodium supplement. Continues to require inpatient management. Fluid restriction today. Dissipate discharge in the next day or 2. Problems addressed as follows: SIADH Hyponatremia -Sodium improved to 125 today. Was put back on hypertonic saline overnight. Urine sodium returned at 76. Inappropriately elevated in the setting of hyponatremia. -Discontinue IV fluids, initiate 1.5 L fluid restriction -Initiate sodium tablets 500 mg twice daily -Repeat BMP this evening and CMP ordered for the morning. Monitoring sodium every 12 hours. goal correction of 8 to 10 mEq/day Alcohol dependence/withdrawal -No significant withdrawal symptoms since admission. Will de-escalate CIWA protocol and benzodiazepines. -Thiamine and multivitamin daily -Magnesium 1.9, potassium 4.0. Phosphorus 2.8. Diarrhea: Concern for nutritional versus from alcoholism versus infectious. Diarrhea panel pending. Further management pending results. Tobacco use disorder: Nicotine patch daily, smokes a pack to a pack and a half a day Skin tear on left leg, mupirocin as needed topically 3 times a day Continue Lexapro 10 mg daily for mood Continue lisinopril 10 mg daily for hypertension Zofran 4 mg as needed every 6 hours for nausea Pantoprazole for GERD/heartburn Full code Regular diet
[2024-01-27] MEDS: MULTIVITAMIN TABLET 1 EACH PO (16:48)
[2024-01-27] MEDS: NICOTINE 21MG/24HR PATCH 21 MG TD (16:48)
[2024-01-27 18:18] LABS: Chloride 95 mmol/L (98-107); Sodium 122 mmol/L (136-145)
[2024-01-27 18:19] LABS: Potassium 3.8 mmoL/L (3.5-5.1)
[2024-01-27 18:21] LABS: Blood Urea Nitrogen 5 mg/dl (9-20); Creatinine Clearance Estimated 73 mL/min (50-200); Estimated Glomerular Filt Rate 136 ml/min (>60); GFR (African American) 165 ML/MIN (>60)
[2024-01-27 18:22] LABS: Anion Gap 4.8 mEq/L (5-15); Calcium 7.6 mg/dl (8.4-10.2); Carbon Dioxide 26 mmol/L (22.0-30.0); Glucose 101 mg/dl (74-100)
--- NOTE | 2024-01-27 18:27 | PC.NURSE ---
Patient a&ox4 and vss. Patient had c/o pain and tylenol helped manage symptoms.
[2024-01-27] MEDS: SODIUM CHLORIDE 0.9% 10ML FLUSH SYRINGE 10 ML IV (21:04)
[2024-01-28] VITALS: BP 152/89; PULSE 77; PULSE 88; RESP 18; TEMP 37.3; O2SAT 100
[2024-01-28 04:00] VITALS: BP 153/96; PULSE 73; RESP 16; TEMP 37.3; O2SAT 100; BMI 22.1
--- NOTE | 2024-01-28 05:14 | PC.NURSE ---
NORMAL SINUS ON TELEMETRY. MEDICATED WITH 650 MG PO TYLENOL FOR BACK PAIN AT 2330.. NO COMPLAINTS OF PAIN SINCE MN. PATIENT WATCHING FLUID CONSUMPTION. 1500 ML FLUID RESTRICTION. REPORTS POOR APPETITE. HOPES TO GO HOME TODAY IF LABS BACK TO NORMAL. VITAL SIGNS STABLE, AFEBRILE. UP AD HEAVEN WITHOUT DIFFICULTY. WOUND CARE PERFORMED TO WOUND ON LLE..
[2024-01-28] MEDS: IBUPROFEN 600 MG TABLET PO ×2 (05:22→16:01)
--- NOTE | 2024-01-28 05:31 | PC.NURSE ---
REQUESTED MOTRIN 600 MGS FOR RETURN OF LOW BACK AND BILAT SHOULDER PAIN 11/26.
[2024-01-28 07:25] LABS: Alanine Aminotransferase 38 U/L (12-78); Albumin Level 2.5 g/dl (3.5-5.0); Albumin/Globulin Ratio 1.1 (1.1-1.8); Alkaline Phosphatase 42 U/L (38-126); Anion Gap 2.3 mEq/L (5-15); Aspartate Amino Transferase 50 U/L (17-59); Bilirubin,Total 0.5 mg/dl (0.2-1.3); Blood Urea Nitrogen 5 mg/dl (9-20); Calcium 7.5 mg/dl (8.4-10.2); Carbon Dioxide 30 mmol/L (22.0-30.0); Chloride 93 mmol/L (98-107); Creatinine Clearance Estimated 73 mL/min (50-200); Estimated Glomerular Filt Rate 168 ml/min (>60); GFR (African American) 203 ML/MIN (>60); Globulin 2.2 g/dL (1.3-3.2); Glucose 96 mg/dl (74-100); Potassium 3.3 mmoL/L (3.5-5.1); Sodium 122 mmol/L (136-145); Total Protein,Serum 4.7 g/dl (6.3-8.2)
[2024-01-28 08:00] VITALS: BP 137/90; PULSE 76; PULSE 80; RESP 20; TEMP 36.7; O2SAT 100
[2024-01-28] MEDS: THIAMINE 100MG TABLET 100 MG PO (08:34)
[2024-01-28] MEDS: SODIUM CHLORIDE 1,000MG TABLET 500 MG PO (08:34)
[2024-01-28] MEDS: FOLIC ACID 1MG TABLET 1 MG PO (08:34)
[2024-01-28] MEDS: LISINOPRIL 10MG TABLET 10 MG PO (08:34)
[2024-01-28] MEDS: CITALOPRAM 20MG TABLET 20 MG PO (08:34)
[2024-01-28] MEDS: MUPIROCIN 2% OINTMENT 22GM TUBE TP ×2 (08:35→12:53)
[2024-01-28] MEDS: PANTOPRAZOLE 40MG VIAL 40 MG IV (08:39)
--- NOTE | 2024-01-28 11:57 | P.DS_ITS ---
General Admission date:: 01/25/24 Discharge date: 01/28/24 HPI HPI HPI: Mr. Nuñez is a 63-year-old male with history of alcoholism and nutritional deficiency. Presented to the ER because of weakness. Daughter who is with him helps supplement history. States that he has been having weakness, diarrhea, shakiness over the past 2 to 3 weeks. Has been drinking 6-8 beers a day. Has not had anything to drink since last night and previous drink was 2 days prior to that. Daughter states he fell about a week ago getting an abrasion/skin tear on his left leg and left forearm. He has progressed in his weakness and she brought him to the ER for evaluation. States he is looking a little bit better now after getting some fluids in the ER but is still quite weak. Appears somewhat anxious on exam and defers to daughter with questioning. Denies chest pain, shortness of breath, headache, nausea. Stools have been watery with occasional flecks of blood per his report. Denies any fever but does have sweat s when he eats. Sodium on presentation decreased at 118. ER consulted medicine for admission given hyponatremia concerning for symptomatic as well as risk of alcohol withdrawal. On evaluation, patient has pleasant on exam. Tolerating p.o. intake. Hospital Course Hospital Course Hospital Course: 63-year-old male with history of alcohol dependence who presented to the ER with weakness and falls. Symptoms worsening over the past 2 weeks. Found to have profound hyponatremia with sodium of 118. Discussed case with ER, request admission for treatment of hyponatremia and alcohol withdrawal. Medicine agreed to admit for further management. Hemodynamically stable on evaluation. At baseline mentation today. Urine sodium returned elevated inappropriately, consistent with SIADH. Initiated on sodium supplementation and fluid restriction. Sodium stable, anticipate slow improvement. Clinically patient is at baseline function. Stable to discharge home to continue treatment as an outpatient. Has follow-up with PCP within 1 week. Repeat labs in 3 days. Stable to discharge home. Problems addressed as follows: SIADH Hyponatremia -On presentation, sodium was low at 118. Initiation of fluid resuscitation with drop in sodium to 114. Was transition to hypertonic saline while urine sodium pending. Improved to 120. Urine sodium returned at 76 (elevated inappropriately). Consistent with SIADH. Patient was fluid restricted on 1.5 L of fluid and initiated on oral sodium supplementation. Sodium has improved to 123 by afternoon of discharge. Showing slow improvement. Mentation has improved, patient at baseline function. Ambulating independently, tolerating p.o. intake. Given his clinical improvement, stable to discharge home with close follow-up with his primary care. Will continue 1000 mg sodium twice daily. 1.5 L fluid restriction. Counseled on need to avoid alcohol and beer as that is likely a complicating component with suspected component of some beer Potomania. Alcohol dependence/withdrawal -No significant withdrawal symptoms since admission. CIWA protocol discontinued. Did not require any benzodiazepines. Will continue multivitamins at discharge. Electrolytes stable on day of discharge. Diarrhea: Concern for nutritional versus from alcoholism versus infectious. Diarrhea panel negative. Stools improving by day of discharge. Tobacco use disorder: Nicotine patch daily, smokes a pack to a pack and a half a day. Counseled on benefits of cessation Skin tear on left leg, appears clean and healthy. Had bleeding after shower. Initiated on mupirocin for 10 days to help with healing and decrease risk for infection. Continue Lexapro 10 mg daily for mood Continue lisinopril 10 mg daily for hypertension Total time spent on discharge 35 minutes in counseling, documentation, chart review, and direct care with patient. Exam Data for Last 24 hours Vital signs and Labs for Last 24 Hours: Temp Pulse Resp BP Pulse Ox O2 Del Method 98.0 F 76 20 137/90 100 Room Air 01/28/24 08:00 01/28/24 08:00 01/28/24 08:00 01/28/24 08:00 01/28/24 08:00 01/28/24 11:00 Laboratory Results - last 24 hr 01/27/24 17:50: Sodium 122 L, Potassium 3.8, Chloride 95 L, Carbon Dioxide 26, Anion Gap 4.8 L, BUN 5 L, Creatinine 0.60 L, Estimated Creat Clear 73, Estimated GFR 136, Est GFR ( Amer) 165, Glucose 101 H D, Calcium 7.6 L 01/28/24 06:47: Sodium 122 L, Potassium 3.3 L, Chloride 93 L, Carbon Dioxide 30, Anion Gap 2.3 L, BUN 5 L, Creatinine 0.50 L, Estimated Creat Clear 73, Estimated GFR 168, Est GFR ( Amer) 203 D, Glucose 96, Calcium 7.5 L, Total Bilirubin 0.5, AST 50, ALT 38, Alkaline Phosphatase 42, Total Protein 4.7 L, Albumin 2.5 L, Globulin 2.2, Albumin/Globulin Ratio 1.1 I & O for Last 24 hours: Intake & Output 01/25/24 01/26/24 01/27/24 01/28/24 23:59 23:59 23:59 23:59 Intake Total 270 / 895 2631 / 2631 585 / 1140 1035 / 1035 Output Total 0 / 0 0 / 0 3 / 3 0 / 0 Balance 270 / 895 2631 / 2631 582 / 1137 1035 / 1035 Weight 63.594 kg 68.492 kg 68 kg 68 kg Constitutional Constitutional: no acute distress, average body habitus and chronically ill appearing *Routine HEENT Exam Head: Present normocephalic Eye: Present EOMI and PERRL ENT: Present mucous membranes moist *Routine Neck Exam Neck: Present supple; Absent lymphadenopathy *Routine Respiratory Exam Respiratory: Present CTA bilaterally; Absent rhonchi, wheezes or crackles *Routine Cardiovascular Exam Cardiovascular: Present RRR *Routine Abdominal Exam Abdominal: Present soft and normoactive bowel sounds; Absent tenderness *Routine Rectal Exam Patient deferred: visual exam *Routine Exam Patient deferred: penile exam *Routine Extremities Exam Extremities: Absent cyanosis, clubbing or edema *Routine Skin Exam Skin: Present warm; Absent rash *Routine Neurological Exam Neurological: Present alert, oriented X3, moving all extremities and normal speech; Absent altered mental status, tremors or asterixis Routine Psychiatric Exam Psychiatric: Present normal affect, normal thought process and cooperative Results Data Completed and Pending Labs on day of discharge: Labs from last 24 hours 01/28/24 01/27/24 06:47 17:50 Sodium 122 L 122 L Potassium 3.3 L 3.8 Chloride 93 L 95 L Carbon Dioxide 30 26 Anion Gap 2.3 L 4.8 L BUN 5 L 5 L Creatinine 0.50 L 0.60 L Estimated Creat Clear 73 73 Estimated GFR 168 136 Est GFR ( Amer) 203 D 165 Glucose 96 101 H D Calcium 7.5 L 7.6 L Total Bilirubin 0.5 AST 50 ALT 38 Alkaline Phosphatase 42 Total Protein 4.7 L Albumin 2.5 L Globulin 2.2 Albumin/Globulin Ratio 1.1 DS: Diagnosis Discharge Diagnosis (1) SIADH (syndrome of inappropriate ADH production): Status: Acute Code(s): E22.2 - Syndrome of inappropriate secretion of antidiuretic hormone (2) Acute hyponatremia: Status: Acute Code(s): E87.1 - Hypo-osmolality and hyponatremia (3) Alcohol dependence: Status: Acute Code(s): F10.20 - Alcohol dependence, uncomplicated (4) Alcohol withdrawal: Status: Resolved Code(s): F10.939 - Alcohol use, unspecified with withdrawal, unspecified (5) Generalized weakness: Status: Acute Code(s): R53.1 - Weakness (6) Anxiety: Status: Acute Code(s): F41.9 - Anxiety disorder, unspecified Meds Home Medications and Allergies Home Medications Medication Instructions Recorded Confirmed Type escitalopram oxalate 10 mg tablet 10 mg PO DAILY 01/25/24 01/25/24 History lisinopril 10 mg tablet 10 mg PO DAILY 01/25/24 01/25/24 History ondansetron HCl 8 mg tablet 8 mg PO TID PRN Nausea And Vomiting 01/25/24 01/25/24 History multivitamin with folic acid 400 1 tab PO 1700 30 days #30 tabs 01/28/24 Rx mcg tablet (Tab-A-Jon) mupirocin 2 % topical ointment 1 applic topical TID 7 days #22 01/28/24 Rx grams sodium chloride 1,000 mg soluble 1,000 mg PO BID 30 days #60 tabs 01/28/24 Rx tablet New Prescriptions to Start Prescriptions: multivitamin with folic acid [Tab-A-Jon] John CoxpirocJohn Mejia James Allergies Allergy/AdvReac Type Severity Reaction Status Date / Time No Known Allergies Allergy Verified 11/11/19 09:26 Discharge Plan Disposition Patient Disposition: Home, Self-Care Condition: Fair Discharge Order Discharge Orders: Discharge Order (Routine); Ordered 01/28/24 Ordered By: John Cox Follow up Plan Follow up with: Marco Restrepo MD [Primary Care Provider] - 02/03/24 4:15 pm Prescriptions/Medication Reconciliation: New mupirocin 2 % Ointment 1 applic topical TID 7 Days Qty: 22 0RF sodium chloride 1,000 mg Tablet,Soluble 1,000 mg PO BID 30 Days Qty: 60 0RF multivitamin with folic acid [Tab-A-Jon] 400 mcg Tablet 1 tab PO 1700 30 Days Qty: 30 0RF Continued ondansetron HCl 8 mg tablet 8 mg PO TID PRN (Reason: Nausea And Vomiting) Patient Comments: TAKE 1 TABLET BY MOUTH THREE TIMES DAILY NEEDED FOR 10 DAYS lisinopril 10 mg tablet 10 mg PO DAILY Patient Comments: TAKE 1 TABLET BY MOUTH ONCE DAILY escitalopram oxalate 10 mg tablet 10 mg PO DAILY Patient Comments: TAKE 1 TABLET BY MOUTH ONCE DAILY Other Ambulatory Orders: Basic Metabolic Panel (Routine) Timeframe: 3 Days Facility: [facility] - Location: Laboratory Ordered By: John Cox Problem Reconciliation Problems Reviewed?: Yes Patient Discharge Instructions ACTIVITY: Continue current activity DIET: continue same diet Patient Instructions: Alcohol Use Disorder, DI for Dehydration -- Adult, DI for Hyponatremia, DI for Drug or Alcohol Withdrawal Providers Primary Care Provider: Marco Restrepo Admit Provider: John Cox Attending Provider: John Cox
[2024-01-28 12:00] VITALS: BP 136/78; PULSE 75; PULSE 76; RESP 21; TEMP 36.4; O2SAT 100
[2024-01-28] MEDS: NICOTINE 21MG/24HR PATCH 21 MG TD (12:53)
[2024-01-28 15:49] LABS: Chloride 94 mmol/L (98-107); Potassium 3.9 mmoL/L (3.5-5.1); Sodium 123 mmol/L (136-145)
[2024-01-28 15:52] LABS: Anion Gap 3.9 mEq/L (5-15); Blood Urea Nitrogen 6 mg/dl (9-20); Calcium 7.8 mg/dl (8.4-10.2); Carbon Dioxide 29 mmol/L (22.0-30.0); Creatinine Clearance Estimated 73 mL/min (50-200); Estimated Glomerular Filt Rate 168 ml/min (>60); GFR (African American) 203 ML/MIN (>60); Glucose 104 mg/dl (74-100)
[2024-01-28 15:59] VITALS: BP 128/83; PULSE 76; RESP 22; TEMP 36.6; O2SAT 100
[2024-01-30 17:09] LABS: Legionella pneumophila Urinary Negative (Negative)
--- NOTE | 2024-01-31 12:48 | CARE MANAGER ---
Attempted to contact patient related to hospital discharge. Daughter called back yesterday and stated he was doing fine. I attempted to call back today, but he didn't answer. EVELYNE Lowe
== END 2024-01-28 17:35 | disposition home or self-care (01) | DRG 644 ==
LOC: ER 14:37 → 2ND 16:59
PROVIDERS: Emergency Medicine; Admitting Provider Internal Medicine Adolescent Medicine; Emergency Provider Emergency Medicine; PCP Internal Medicine Adolescent Medicine; Visit Provider Internal Medicine Adolescent Medicine
DX: E22.2 Syndrome of inappropriate secretion of antidiuretic hormone (principal); F10.239 Alcohol dependence with withdrawal, unspecified; F41.9 Anxiety disorder, unspecified; R19.7 Diarrhea, unspecified; F17.210 Nicotine dependence, cigarettes, uncomplicated; Z71.6 Tobacco abuse counseling; S81.812A Laceration without foreign body, left lower leg, initial encounter; X58.XXXA Exposure to other specified factors, initial encounter
CPT/HCPCS: 36415; 70450; 71045; 74177; 80048; 80053; 82607; 83735; 84100; 84484; 84540; 85025; 85610; 85730; 87506; 93005; 97163; 97165; 99285; J2405; J3475; Q9967

== ENCOUNTER 2024-02-03 16:49 | Outpatient (CLI) | payer MEDICARE, SELFPAY ==
[2024-02-03 17:51] LABS: Anion Gap 10.2 mEq/L (5-15); Blood Urea Nitrogen 6 mg/dl (9-20); Calcium 8.6 mg/dl (8.4-10.2); Carbon Dioxide 30 mmol/L (22.0-30.0); Chloride 96 mmol/L (98-107); Estimated Glomerular Filt Rate 168 ml/min (>60); GFR (African American) 203 ML/MIN (>60); Glucose 133 mg/dl (74-100); Potassium 4.2 mmoL/L (3.5-5.1); Sodium 132 mmol/L (136-145)
== END 2024-02-03 23:59 | disposition home or self-care (01) ==
LOC: LAB 16:50
PROVIDERS: PCP Internal Medicine Adolescent Medicine; Visit Provider Internal Medicine Adolescent Medicine
DX: E87.1 Hypo-osmolality and hyponatremia (principal)
CPT/HCPCS: 36415; 80048; 83735

== ENCOUNTER 2024-03-27 09:29 | Day surgery (SDC) | payer MEDICARE, SELFPAY ==
[2024-03-20 10:07] VITALS: BMI 22.9
[2024-03-27] VITALS (9 sets, daily range): BP systolic 100–158; BP diastolic 62–80; PULSE 70–96; RESP 16–18; TEMP 36.1–36.4; O2SAT 94–99
--- NOTE | 2024-03-27 09:59 | HMH.SCOPE ---
Procedure: Date: 03/27/24 Patient Date of :: 1960 Procedure Performed:: Colonoscopy with polypectomy Indications:: Screening Performing Provider:: Galdino Perez MD Referring Provider:: . Sedation:: Monitored anesthesia care Procedure:: After informed consent was obtained the patient was taken to the endoscopy suite. Sedation ensued after the patient was transferred to the left lateral decubitus position. Pulse, blood pressure, and oxygen saturation were monitored throughout the procedure. Digital rectal exam revealed no significant abnormality. The colonoscope was placed in position. The entire colon was evaluated. The colonoscope was carefully removed and the patient was transferred to recovery in stable condition. Please see findings and specimens below for detail. Findings:: Bowel preparation moderate Hemorrhoidal tags Profound lack of relaxation (particularly sigmoid) Severe tortuosity of sigmoid colon Multiple large complex polyps (see specimens) Specimens:: Large sessile periappendiceal polyp (cold snare) Large sessile cecal polyp (cold snare) Sessile polyp at 30 cm (cold snare) Ulcerated sessile polyp at 25 cm (cold snare and tattoo) 2 adjacent very large [nearly-obstructing] pedunculated polyps with broad-based stalks at 23 cm (hot snare) Adjacent polyps at 7 cm (cold snare) Recommendations:: Timing of colonoscopy is pending pathology will likely be within 3-6 months. Consider gastroenterology for repeat colonoscopy secondary to overall procedural difficulty. Complications:: No immediate Estimated blood obtained (mL): 1 Colonoscopy Component Colonoscopy Component Was a colonoscopy performed during today's procedure?: Yes Recommended follow up colonoscopy of at least 10 years?: No If no, follow up colonoscopy recommended in ___ years?: (See above) Reason for not recommending >/= 10 yr follow-up interval?: (See above)
--- NOTE | 2024-03-27 10:02 | P.PNANES_ITS ---
[facility] Disclaimer: The information contained in this section may have been updated after the patient was seen, as this information can be updated by other users. Medical History Anxiety HTN (hypertension) Diverticulitis Family History Grandmother Stomach cancer Bleeding disorder Grandmother No problems noted. Social History Smoking Status: Current every day smoker tobacco type: cigarettes packs per day: 1 alcohol intake: current substance use type: denies use current occupational status: retired Travel in the last 8 weeks: None [facility] Anesthesia Checklist Patient Identification Patient Identification: Arm Band Structural Data Admitted From: Home Planned Operative Procedure/s: Colonoscopy Consent for Planned Operative Procedure(s) Verified: Yes Verified Documents: Surgical Consent and History and Physical NPO Status Verified Time NPO: 00:00 Additional verifications Anesthesia Reactions: No Airway Assessment Mallampati Score:: Class II C-Spine Mobility Assessed: Yes TMJ Mobility Assessed: Yes Dentition: Good Dentition Neurological Assessment Level of Consciousness: Awake, Alert and Appropriate Anesthesia Plan Anesthesia Risk discussed: Yes Anesthesia Plan: Verified ASA Class: II Anesthesia Type: MAC
== END 2024-03-27 13:40 | disposition home or self-care (01) ==
PROVIDERS: PCP Internal Medicine Adolescent Medicine; Visit Provider Surgery
PROC: 0DJD8ZZ Inspection of Lower Intestinal Tract, Via Natural or Artificial Opening Endoscopic (ICD-10-PCS; CPT 45381; principal; 2024-03-27 10:30)
DX: Z86.010 Personal history of colon polyps (principal); Z12.11 Encounter for screening for malignant neoplasm of colon; K64.9 Unspecified hemorrhoids; D12.1 Benign neoplasm of appendix; D12.0 Benign neoplasm of cecum; D12.5 Benign neoplasm of sigmoid colon; K63.5 Polyp of colon
CPT/HCPCS: 45381; 45385; 88305; J2704

== ENCOUNTER 2024-04-03 09:00 | Outpatient (RCR) | payer MEDICARE, SELFPAY ==
--- NOTE | 2024-02-20 08:58 | HMH.PTOPWND ---
Rehab Outpt Wound Evaluation Rehab OP Wound Evaluation Start: 02/20/24 08:07 Freq: Status: Active Protocol: Document 02/20/24 08:34 PHORNE (Rec: 02/20/24 08:58 PHORNE Laptop) E-signed By Agusto Rm, PT Subjective/History History History This is the initial PT eval for Lopez Nuñez, 63 yowm who presents with c/o increased B LE edema x ~ 1-2 mos and decreased general strength and balance x ~ 1-2 mos. He reports recent hospitalization for general weakness and hyponatremia. He reports more difficulty with swelling, balance, and stair climbing since that time. He reports no current pain, but some tenderness in B lower legs. He has PMH of HTN, diverticulitis, and EtOH abuse . Subjective Subjective Currently he reports pain is 0 /10, TTP in B lower legs and feet is 2/4. 3+ pitting edema noted in B lower legs and feet . Minimal blanchable erythema noted to B lower legs also. New diagnosis of cancer in past 12 No months? Lymphedema Eval Classification of Lymphedema Secondary Lymphedema Yes Stemmer's sign Stemmer's Sign yes Stage of Lymphedema Lymphedema stages Stage I (Pitting edema, reduces w/ elevation, no fibrosis) Skin Changes Dry Skin Yes Redness Yes Wounds Yes Discoloration of Skin Yes Other Changes Yes Pain Scale Pain Scale (0-10) 0 Affected Extremities Areas Affected by Lymphedema/Edema Right Lower Extremity,Left Lower Extremity Lower Extremity Measurements Right MTP Measurement (cm) 23.5 Heel Measurement (cm) 34.8 10 cm Proximal to Lateral Malleoli 22.6 Measurement (cm) 20 cm Proximal to Lateral Malleoli 30.8 Measurement (cm) 30 cm Proximal to Lateral Malleoli 32.5 Measurement (cm) 40 cm Proximal to Lateral Malleoli 33.0 Measurement (cm) 50 cm Proximal to Lateral Malleoli 0 Measurement (cm) 60 cm Proximal to Lateral Malleoli 0 Measurement (cm) Lower Extremity Measurement Total (cm) 177.2 Left MTP Measurement (cm) 22.9 Heel Measurement (cm) 34.3 10 cm Proximal to Lateral Malleoli 22.7 Measurement (cm) 20 cm Proximal to Lateral Malleoli 30.0 Measurement (cm) 30 cm Proximal to Lateral Malleoli 32.5 Measurement (cm) 40 cm Proximal to Lateral Malleoli 33.1 Measurement (cm) 50 cm Proximal to Lateral Malleoli 0 Measurement (cm) 60 cm Proximal to Lateral Malleoli 0 Measurement (cm) Lower Extremity Measurement Total (cm) 175.5 Manual Lymphatic Drainage Treatment Area MLD Treatment Area Right Lower Extremity,Left Lower Extremity Wound Problems/Impairments Impairments Problems/Impairmments Palpation Tenderness,Impaired Range of Motion,Impaired Strength,Impaired Endurance, Impaired Walking,Impaired Standing,Impaired Lifting, Impaired Household Care, Impaired Stair Climbing, Impaired Incline Stepping, Impaired Stepping on Uneven Surface,Impaired Squatting, Impaired Recreational Activities,Increased Edema, Lymphedema Present,Subjective C/O Pain,Impaired Self Care/ Self Management Prognosis Rehab Potential Good Comment Skilled therapy services are indicated to improve pt ability to perform household activities, increase general strength and decrease overall edema to facilitate return to prior level of function. Clinical Impression Consistent with Diagnosis Yes Short Term Goals Number of Weeks 2 Decreased Palpation Tenderness Yes: 1/4 B LE Decrease Edema Yes: 2+ pitting edema B LE Patient to Understand Lymphedema Yes Treatment and Exercises Decrease Girth Measurments by (cm) Yes: B LE total by 5 cm ea. Fdc Goals Number of Weeks 4 Decreased Palpation Tenderness Yes: 0/4 B LE Improve Ability For Household Care Yes Decrease Edema Yes: 1+ pitting edema B LE Patient to be Ind w/ HEP Yes Patient to Adhere Lymphedema Precautions Yes Decrease Girth Measurments by (cm) Yes: B LE total by 10 cm ea Outpatient Therapy Plan of Care Treatment Plan May Include Therapeutic Exercise Including Home Yes Exercise Program Manual Therapy Techniques Yes Neuromuscular Re-education Yes Therapeutic Activities to Return to Yes Previous Functional/Work Level Gait Training Yes ADL/Self Care Education Yes Orthotics/Bracing/Splinting Yes Massage Yes Manual Lymphatic Drainage Yes Wound Care Yes Eval/Re-Eval Yes Frequency Times per week 2 Duration Number of Weeks 4 Addendums This patient is a candidate for social No or vocational rehab? Patient/Guardian verbally acknowledges Yes understanding of treatment program and consents to further treatment? Patient/Guardian verbally acknowledges Yes understanding of diagnosis, prognosis and goals for treatment? Eval Complexity PT Charges 37144 - High Complexity PHYSICIAN CERTIFICATION: I certify the specified therapy services for Lopez Ahsaneker are required, authorized, and reviewed every 30 days.
--- NOTE | 2024-02-20 09:06 | HMH.PTOPEV ---
PT Outpatient Evaluation Rehab PT Outpatient Evaluation Start: 02/20/24 08:07 Freq: Status: Active Protocol: Document 02/20/24 08:58 VIK (Rec: 02/20/24 09:06 VIK Laptop) E-signed By Agusto Rm, PT Outpatient Therapy Subjective History Subjective History This is the initial PT eval for Lopez Nuñez, 63 yowm who presents with c/o increased B LE edema x ~ 1-2 mos and decreased general strength and balance x ~ 1-2 mos. He reports recent hospitalization for general weakness and hyponatremia. He reports more difficulty with swelling, balance, and stair climbing since that time. He reports no current pain, but some tenderness in B lower legs. He has PMH of HTN, diverticulitis, and EtOH abuse . New diagnosis of cancer in past 12 No months? Chief Complaint Weakness Prior Functional Limitations None Current Functional Limitations Lifting,Housework,Recreation Activity,Stairs,Balance Symptom Description Activity Dependent Level of pain today (0-10) 0 Pain scale - at its worst (0-10) 0 Hip/Knee Eval MMT bilateral Hip Flexion Strength Grade 4- Good- Hip Abduction Strength Grade 4- Good- Hip Adduction Strength Grade 4 Good Hip Extension Strength Grade 4- Good- Knee Extension Strength Grade 5 Normal Knee Flexion Strength Grade 5 Normal Dynamic Gait Index Test Protocol Gait Level Surface Normal Query Text: Instructions: Walk at your normal speed from here to the next dante (20'). Grading: Dante the lowest category that applies. Change in Gait Speed Mild Impairment Query Text: Instructions: Begin walking at your normal pace (for 5'), when I tell you go , walk as fast as you can (for 5'). When I tell you slow , walk as slowly as you can (for 5'). Grading: Dante the lowest category that applies. Gait with Horizontal Head Turns Mild Impairment Query Text: Instructions: Begin walking at your normal pace. When I tell you to look right , keep walking straight, but turn you head to the right. Keep looking to the right unit I tell you look left , then keep walking straight and turn your head to the left. Keep your head to the left until I tell you look straight , then keep walking straight, but return you head to the center. Grading: Dante the lowest category that applies. Gait with Vertical Head Turns Mild Impairment Query Text: Instructions: Begin walking at your normal pace. When I tell you to look up , keep walking staight, but tip your head up. Keep looking up until I tell you to look down , then keep walking straight and tip your head down. Keep your head down until I tell you look straight , then keep walking straight, but return your head to the center. Grading: Dante the lowest category that applies. Gait and Pivot Turn Mild Impairment Query Text: Instructions: Begin walking at your normal pace. When I tell you turn and stop , turn as quickly as you can to face the opposite direction and stop. Grading: Dante the lowest category that applies. Step Over Obstacle Mild Impairment Query Text: Instructions: Begin walking at your normal speed. When you come to the shoebox, step over it, not around it and keep walking. Grading: Dante the lowest category that applies. Step Around Obstacles Normal Query Text: Instructions: Begin walking at normal speed. When you come to the first cone (about 6' away), walk around the right side of it. When you come to the second cone (6' past first cone), walk around it to the left. Grading: Dante the lowest category that applies. Steps Mild Impairment Query Text: Instructions: Walk up these stairs as you would at home. At the top, turn around and walk down. Grading: Dante the lowest category that applies. Scoring Dynamic Gait Index Score 18 Outpatient Therapy Assessment Impairments Problems/Impairmments Palpation Tenderness,Impaired Range of Motion,Impaired Strength,Impaired Endurance, Impaired Walking,Impaired Standing,Impaired Lifting, Impaired Household Care, Impaired Stair Climbing, Impaired Incline Stepping, Impaired Stepping on Uneven Surface,Impaired Squatting, Impaired Recreational Activities,Increased Edema, Lymphedema Present,Subjective C/O Pain,Impaired Self Care/ Self Management Prognosis Rehab Potential Good Comment Skilled therapy services are indicated to improve pt ability to perform household activities, increase general strength and decrease overall edema to facilitate return to prior level of function. 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 Number of Weeks 4 Increase Strength Yes: B LE grossly 4+/5 to 5/5 throughout Increase Ability to Walk Yes: > 30 min without discomfort Improve Ability For Household Care Yes Improve Ability to Climb Stairs Yes Increase DGI Score Yes: > or = to Patient to be Ind w/ Advanced HEP Yes Outpatient Therapy Plan of Care Treatment Plan May Include Therapeutic Exercise Including Home Yes Exercise Program Manual Therapy Techniques Yes Neuromuscular Re-education Yes Therapeutic Activities to Return to Yes Previous Functional/Work Level Gait Training Yes ADL/Self Care Education Yes Orthotics/Bracing/Splinting Yes Massage Yes Manual Lymphatic Drainage Yes Wound Care Yes Eval/Re-Eval Yes Frequency Times per week 2 Duration Number of Weeks 4 Addendums This patient is a candidate for social No or vocational rehab? Patient/Guardian verbally acknowledges Yes understanding of treatment program and consents to further treatment? Patient/Guardian verbally acknowledges Yes understanding of diagnosis, prognosis and goals for treatment? Shoulder/Elbow Eval Shoulder Objective Measurements Elbow Objective Measurements PHYSICIAN CERTIFICATION: I certify the specified therapy services for Lopez Nuñez are required, authorized, and reviewed every 30 days.
--- NOTE | 2024-04-03 10:58 | HMH.RHREAS ---
Rehab Reassessment Rehab OP Re-assessment Start: 02/20/24 08:07 Freq: Status: Active Protocol: Document 04/03/24 10:52 VIK (Rec: 04/03/24 10:58 PHOWALLY [id number]) E-signed By Agusto Rm PT Dynamic Gait Index Test Protocol Gait Level Surface Normal Query Text: Instructions: Walk at your normal speed from here to the next dante (20'). Grading: Dante the lowest category that applies. Change in Gait Speed Normal Query Text: Instructions: Begin walking at your normal pace (for 5'), when I tell you go , walk as fast as you can (for 5'). When I tell you slow , walk as slowly as you can (for 5'). Grading: Dante the lowest category that applies. Gait with Horizontal Head Turns Normal Query Text: Instructions: Begin walking at your normal pace. When I tell you to look right , keep walking straight, but turn you head to the right. Keep looking to the right unit I tell you look left , then keep walking straight and turn your head to the left. Keep your head to the left until I tell you look straight , then keep walking straight, but return you head to the center. Grading: Dante the lowest category that applies. Gait with Vertical Head Turns Normal Query Text: Instructions: Begin walking at your normal pace. When I tell you to look up , keep walking staight, but tip your head up. Keep looking up until I tell you to look down , then keep walking straight and tip your head down. Keep your head down until I tell you look straight , then keep walking straight, but return your head to the center. Grading: Dante the lowest category that applies. Gait and Pivot Turn Normal Query Text: Instructions: Begin walking at your normal pace. When I tell you turn and stop , turn as quickly as you can to face the opposite direction and stop. Grading: Dante the lowest category that applies. Step Over Obstacle Normal Query Text: Instructions: Begin walking at your normal speed. When you come to the shoebox, step over it, not around it and keep walking. Grading: Dante the lowest category that applies. Step Around Obstacles Normal Query Text: Instructions: Begin walking at normal speed. When you come to the first cone (about 6' away), walk around the right side of it. When you come to the second cone (6' past first cone), walk around it to the left. Grading: Dante the lowest category that applies. Steps Normal Query Text: Instructions: Walk up these stairs as you would at home. At the top, turn around and walk down. Grading: Dante the lowest category that applies. Scoring Dynamic Gait Index Score 24 Rehab Re-assessment Subjective Subjective Pt reports much improved B LE edema and balance at this time . I still have a little bit of swelling in my legs, but they're better. I have a little bit of trouble getting up from a really low chair or toilet. Objective Objective Notes MMT B LE: hips and knees grossly 5/5 throughout. DGI: Circumferential measurements: R LE total 168.6 cm which is - 8.6 cm vs IE. L LE total 169.4 cm which is - 6.1 cm vs IE. Edema: 1+ pitting edema to the R ankle this date, otherwise minimal edema noted throughout B LE. Assessment Progress Assessment Progressing as Expected Assessment Notes Pt has shown significant reduction of B LE edema and much improved dynamic functional balance in standing . He is performing all ADLs independently at this time. Patient goals met Lymph: STG= 12/21 LTG= 01/22 Balance: ST/6 LTG : 02/22 Plan Plan Pt is appropriate to D/C to independent [facility] for controlling his edema at this time. No further balance or gait training needed either. Frequency of Therapy 0 Duration of therapy 0 Time and Billing Re-Eval Time 10 Re-Eval Billing Units 1 PHYSICIAN CERTIFICATION: I certify the specified therapy services for Lopez Nuñez are required, authorized, and reviewed every 30 days.
== END 2024-04-03 09:05 | disposition home or self-care (01) ==
LOC: PT 09:00
PROVIDERS: Visit Provider Internal Medicine Adolescent Medicine
DX: R60.0 Localized edema (principal)
CPT/HCPCS: 97140; 97163; 97164

== ENCOUNTER 2024-07-23 06:42 | Day surgery (SDC) | payer MEDICARE, SELFPAY ==
[2024-07-18 11:03] VITALS: BMI 22.2
[2024-07-23] MEDS: LACTATED RINGERS 1000ML 1,000 ML 100 ML IV (06:57)
[2024-07-23 06:58] VITALS: BP 149/88; PULSE 76; RESP 18; TEMP 36.2; O2SAT 100
--- NOTE | 2024-07-23 06:58 | P.PNANES_ITS ---
[facility] Disclaimer: The information contained in this section may have been updated after the patient was seen, as this information can be updated by other users. Medical History Anxiety HTN (hypertension) Diverticulitis Surgical History History of colonoscopy Family History Grandmother Stomach cancer Bleeding disorder Grandmother No problems noted. Social History Smoking Status: Current every day smoker tobacco type: cigarettes packs per day: 1 alcohol intake: current substance use type: denies use current occupational status: retired Travel in the last 8 weeks: None [facility] Anesthesia Checklist Patient Identification Patient Identification: Arm Band, Family and Verbal (Name & ) Structural Data Admitted From: Home Planned Operative Procedure/s: Colonoscopy Consent for Planned Operative Procedure(s) Verified: Yes Verified Documents: Surgical Consent and History and Physical NPO Status Verified Time NPO: 05:00 Chart Verification Results Verified: CBC, BMP, ECG and Chest Xray Additional verifications Patient : No Anesthesia Reactions: No Cardiovascular Assessment Heart Sounds: S1 & S2 Pulse Rhythm: Irregular Peripheral Edema: No Airway Assessment Mallampati Score:: Class II C-Spine Mobility Assessed: Yes (FROM demonstrated) TMJ Mobility Assessed: Yes Dentition: Poor Dentition (Nothing loose per pt.) Neurological Assessment Level of Consciousness: Awake, Alert, Appropriate and Follows Commands Hx Seizures: No Numbness or tingling in extremities: No Anesthesia Plan Anesthesia Risk discussed: Yes Anesthesia Plan: Verified ASA Class: III Anesthesia Type: MAC
[2024-07-23 07:37] VITALS: O2SAT 100
--- NOTE | 2024-07-23 07:37 | EXP.HP ---
History of Present Illness *Admission Date: 07/23/24 *Reason for visit:: Personal history of adenomatous polyps/surveillance *History of present illness: Mr. Nuñez is a 63-year-old gentleman who is here for surveillance colonoscopy. At the time of his colonoscopy in March 2024 he had multiple adenomatous polyps and some that were larger adenomas removed (Dr. Galdino Perez M.D.). The examination is deemed medically necessary for colonoscopy. The patient has been seen, interviewed and examined prior to the procedure by both myself and the anesthesia provider. [facility] Disclaimer: The information contained in this section may have been updated after the patient was seen, as this information can be updated by other users. Medical History (Updated 07/23/24 @ 07:44 by Valdez Shearer II, MD) Anxiety HTN (hypertension) Diverticulitis Surgical History History of colonoscopy Family History Grandmother Stomach cancer Bleeding disorder Grandmother No problems noted. Social History Smoking Status: Current every day smoker tobacco type: cigarettes packs per day: 1 alcohol intake: current substance use type: denies use current occupational status: retired Travel in the last 8 weeks: None Other Medical History Have you received the Flu Vaccine for this season: No Have you received the Pneumonia Vaccine: No Review of Systems Review of Systems Review of systems (narrative): Negative *Cardiovascular Comments: Negative *Gastrointestinal Comments: Negative *Genitourinary Comments: Negative *Musculoskeletal Comments: Negative *Neurologic Comments: Negative Meds Home Medications and Allergies Home Medications ?Medication ?Instructions ?Recorded ?Confirmed ?Type escitalopram oxalate 10 mg tablet 10 mg PO DAILY 01/25/24 07/18/24 History ondansetron HCl 8 mg tablet 8 mg PO TID PRN Nausea And Vomiting 01/25/24 07/18/24 History mupirocin 2 % topical ointment 1 applic topical TID 7 days #22 01/28/24 07/18/24 Rx grams pantoprazole 40 mg tablet,delayed 40 mg PO DAILY 30 days #30 tabs 01/28/24 07/18/24 Rx release sodium chloride 1,000 mg soluble 1,000 mg PO BID 30 days #60 tabs 01/28/24 07/18/24 Rx tablet torsemide 10 mg tablet 10 mg PO DAILY 03/20/24 07/18/24 History lisinopril 10 mg tablet 20 mg PO DAILY 04/11/24 07/18/24 History sodium,potassium,mag sulfates 17.5 See Rx Instructions PO .COMPLEX 07/13/24 07/18/24 Rx gram-3.13 gram-1.6 gram oral soln #354 mL (Suprep Bowel Prep Kit) New Prescriptions to Start Prescriptions: Allergies Allergy/AdvReac Type Severity Reaction Status Date / Time No Known Allergies Allergy Verified 04/11/24 10:49 Exam Data for Last 24 hours Vital signs and Labs for Last 24 Hours: Temp Pulse Resp BP Pulse Ox O2 Del Method 97.1 F L 76 18 149/88 H 100 Room Air 07/23/24 06:58 07/23/24 06:58 07/23/24 06:58 07/23/24 06:58 07/23/24 06:58 07/23/24 06:58 *Routine HEENT Exam Head: Present normocephalic Eye: Present EOMI and PERRL ENT: Present mucous membranes moist *Routine Neck Exam Neck: Present supple *Routine Respiratory Exam Respiratory: Present CTA bilaterally *Routine Cardiovascular Exam Cardiovascular: Present RRR *Routine Abdominal Exam Abdominal: Present soft and normoactive bowel sounds; Absent tenderness *Routine Rectal Exam Rectal:: deferred *Routine Genitalia Exam Genitalia:: deferred *Routine Extremities Exam Extremities: Absent cyanosis, clubbing or edema *Routine Skin Exam Skin: Present warm; Absent rash *Routine Neurological Exam Neurological: Present alert and oriented X3 Assessment and Plan *Assessment and plan (1) Personal history of adenomatous and serrated colon polyps: Status: Acute Category: Medical Code(s): Z86.0101 - Personal history of adenomatous and serrated colon polyps Plan A/P: 1. Personal history of multiple adenomatous and advanced adenomatous colon polyps is the preprocedural diagnosis. The patient will be anesthetized/sedated using MAC sedation. The patient has been seen and examined. Cardiac and lung assessment prior to the examination is stable. Proceed with planned colonoscopy
--- NOTE | 2024-07-23 07:44 | HMH.PROCNOTE ---
[facility] Procedure Note Date: 07/23/24 Time: 08:11 Procedure Note:: Colonoscopy Procedure Report: Colonoscopy with cold snare polypectomy Endoscopist: Valdez Shearer II, MD Referring physician: Marco Restrepo M.D. Date of Procedure: July 23, 2024 Equipment: Olympus 190 variable stiffness pediatric colonoscope Sedation: MAC sedation Indication: Mr. Nuñez is a 63-year-old gentleman who is here for follow-up surveillance colonoscopy at 3 to 4 months (last in March 2024 Dr. Galdino Perez M.D.) because of multiple large and advanced adenomatous colon polyps and for polyp clearance. The patient does report some intermittent rectal pressure and fecal urgency. He reports some incomplete defecation. He reports some mucus with his bowel movements intermittently. He reports no rectal bleeding, abdominal pain or family history of colon cancer. He has had a 10 pound weight loss. Procedure: Prior to the procedure, a history and physical exam was performed, and patient's medications and allergies were reviewed. The risks, benefits and alternatives of the sedation and procedure were discussed with the patient. All questions were answered and informed consent was obtained. The patient was brought to the procedure room. Patient identification and proposed procedure were verified by the physician and the nurse. The patient was placed in a left lateral decubitus position and the scope was passed under direct vision. Throughout the procedure, the patient's blood pressure, pulse, and oxygen saturations were monitored continuously. The colonoscopy was accomplished without difficulty. The patient tolerated the procedure well. Findings: On digital rectal examination there was normal rectal tone. There were no external hemorrhoids. The colonoscope was introduced through the anal canal to the rectum and advanced to the cecum. The ileocecal valve and appendiceal orifice were identified. The scope was advanced a short distance into the ileum which appeared grossly normal. The scope was then withdrawn into the colon. The cecum, ascending and transverse colon and mucosa were grossly normal. There were scattered extensive diverticuli throughout the descending and sigmoid colon (LEFT colon). Within the mid and distal sigmoid colon there was evidence of spot ink tattoo submucosally. There was some residual 7 mm polyp in the mid sigmoid colon removed via cold snare polypectomy. There also appeared to be a second amputated polyp with a wide base stalk with adenomatous tissue on the apex that was 14 to 15 mm and this was also completely shaved off and removed via cold snare polypectomy. The rectosigmoid and rectum are normal. The rectum itself was normal. Upon retroflexion within the rectum there were grade 2-3 internal hemorrhoids. The preparation was excellent throughout with Telephone Preparation Score of 9. The cecal time was 12 minutes. Impression: 1. Sigmoid polyps x 2 (7 and 15 mm) with adjacent Marielena ink or spot ink submucosal tattoo 2. Extensive left-sided diverticulosis 3. Grade 2-3 internal hemorrhoids Plan: I will follow-up the polyp histology and recommend repeat surveillance colonoscopy again in 3 years. I would encourage psyllium bulking supplementation on a long-term daily maintenance basis.
[2024-07-23 08:15] VITALS: BP 125/79; PULSE 90; RESP 16; TEMP 36.5; O2SAT 92
[2024-07-23 08:25] VITALS: BP 153/56; PULSE 88; RESP 16; O2SAT 99
[2024-07-23 08:35] VITALS: BP 167/96; PULSE 86; RESP 16; O2SAT 99
[2024-07-23 08:44] VITALS: BP 151/86; PULSE 90; RESP 16; O2SAT 100
== END 2024-07-23 08:45 | disposition home or self-care (01) ==
PROVIDERS: PCP Internal Medicine Adolescent Medicine; Visit Provider Internal Medicine Gastroenterology
PROC: (CPT 45385; principal; 2024-07-23 08:00)
DX: Z86.0101 Personal history of adenomatous and serrated colon polyps (principal); K63.5 Polyp of colon; K57.30 Diverticulosis of large intestine without perforation or abscess without bleeding; K64.8 Other hemorrhoids
CPT/HCPCS: 45385; 88305; J7120

== ENCOUNTER 2025-07-18 10:17 | Observation (INO) | payer MEDICARE, SELFPAY ==
[2025-07-18] VITALS (18 sets, daily range): BP systolic 111–155; BP diastolic 63–120; PULSE 70–87; RESP 11–20; TEMP 36.8–37.2; O2SAT 93–100; BMI 20.7; BMI 20.2
--- NOTE | 2025-07-18 10:35 | ECG_ITS ---
APPROVED REPORT Exam: Resting ECG HR:82 bpm ECG Measurements Heart Rate 82 AXES MD 179 P 34 QRSd 91 QRS 64 QT 481 T 55 QTc 520 Conclusion SINUS RHYTHM WITH OCCASIONAL SUPRAVENTRICULAR PREMATURE COMPLEXES MODERATE ST DEPRESSION [0.05+ mV ST DEPRESSION] PROLONGED QT INTERVAL CRITICAL TEST RESULT UNCONFIRMED REPORT Normal sinus rhythm, prolonged QTc, No ST elevation or depression Electronically signed by : KATELYN MONET, 07/18/2025 14:37:32
--- NOTE | 2025-07-18 10:35 | CT_ITS ---
FINAL REPORT TECHNIQUE: Axial CT images were performed through the head. Coronal reformatted images were submitted. This study was performed with techniques to keep radiation doses as low as reasonably achievable (ALARA). Individualized dose reduction techniques using automated exposure control or adjustment of mA and/or kV according to the patient's size were employed. CLINICAL HISTORY: confusion COMPARISON: 01/25/2024 FINDINGS: Mild atrophy is noted. There are mild changes of chronic microvascular ischemia. There is no evidence of hemorrhage. There is no mass or edema identified. There is no abnormal extra-axial fluid seen. There is a cystic focus in the left maxillary region measuring 1.9 cm with smooth margins and slightly expansile. Findings concerning for odontogenic cyst. IMPRESSION: Findings concerning for odontogenic cyst left maxillary region. Reviewed, Interpreted and Dictated by Barrett Rodriguez MD Transcribed by Daily Rhodes Authenticated and [facility]
--- NOTE | 2025-07-18 10:35 | XR_ITS ---
FINAL REPORT CLINICAL HISTORY: Confusion COMPARISON: 01/25/2024 FINDINGS: The heart size is normal. The mediastinum is normal. There is no focal infiltrate or edema. There are no pleural effusions. There is no pneumothorax. There is no osseous abnormality. IMPRESSION: No acute cardiopulmonary process Reviewed, Interpreted and Dictated by Barrett Rodriguez MD Transcribed by Daily Rhodes Authenticated and [facility]
--- NOTE | 2025-07-18 10:36 | HMH.EDGENADL ---
Discharge Plan Disposition Patient Disposition: Admitted Prescriptions Prescriptions: No Action sodium,potassium,mag sulfates [Suprep Bowel Prep Kit] 17.5-3.13-1.6 gram recon soln See Rx Instructions PO .COMPLEX Qty: 354 0RF Rx Instructions: DILUTE; drink full amount early evening before AND next morning at least 2 hr before procedure; follow w 960 mL water PO torsemide 10 mg Tablet 10 mg PO DAILY ondansetron HCl 8 mg tablet 8 mg PO TID PRN (Reason: Nausea And Vomiting) Patient Comments: TAKE 1 TABLET BY MOUTH THREE TIMES DAILY NEEDED FOR 10 DAYS escitalopram oxalate 10 mg tablet 10 mg PO DAILY Patient Comments: TAKE 1 TABLET BY MOUTH ONCE DAILY mupirocin 2 % Ointment 1 applic topical TID 7 Days Qty: 22 0RF sodium chloride 1,000 mg Tablet,Soluble 1,000 mg PO BID 30 Days Qty: 60 0RF pantoprazole 40 mg tablet,delayed release (DR/EC) 40 mg PO DAILY 30 Days Qty: 30 0RF lisinopril 10 mg tablet 20 mg PO DAILY Patient Comments: TAKE 1 TABLET BY MOUTH ONCE DAILY Clinical Impressions Clinical Impression: Acute hyponatremia, Acute hypokalemia, Hypomagnesemia, Cyst, odontogenic Print Language Print Language: Cook Islander Discharge ED Provider: Andrei Cordon General Adult HPI General Chief complaint: Altered Mental Status Stated complaint: confused, hx of low sodium Time Seen by Provider: 07/18/25 10:20 History of Present Illness HPI narrative: Lopez Nuñez is a 64-year-old male with a past medical history of hyponatremia secondary to SIADH, anxiety, alcohol use who presents to the emergency department for an episode of confusion. Patient states that yesterday, he returned from the grocery and put away his groceries, however throughout the day and into the animal scientist, he had episodes where he was thinking that he was doing things that he was not doing, such as fixing a door and looking up at the drapes. States that he did not go to bed until 530 this morning. He woke up at around 8 AM. He denies any trauma or falls. He was told to have a dentist appointment at 10:00 this morning, however due to this episode, they came to the emergency department instead. Patient is alert and oriented x 3 at this time. He denies any pain, including chest pain, abdominal pain. He has no focal weakness. Patient does state that he has had low sodium in the past that presented similarly. He does state that he is no longer drinking beer and will drink 2-3 martinis daily now. He last drink 1 martini yesterday. Related Data Home Medications ?Medication ?Instructions ?Recorded ?Confirmed escitalopram oxalate 10 mg tablet 10 mg PO DAILY 01/25/24 07/18/24 ondansetron HCl 8 mg tablet 8 mg PO TID PRN Nausea And Vomiting 01/25/24 07/18/24 torsemide 10 mg tablet 10 mg PO DAILY 03/20/24 07/18/24 lisinopril 10 mg tablet 20 mg PO DAILY 04/11/24 07/18/24 Previous Rx's ?Medication ?Instructions ?Recorded mupirocin 2 % topical ointment 1 applic topical TID 7 days #22 01/28/24 grams pantoprazole 40 mg tablet,delayed 40 mg PO DAILY 30 days #30 tabs 01/28/24 release sodium chloride 1,000 mg soluble 1,000 mg PO BID 30 days #60 tabs 01/28/24 tablet sodium,potassium,mag sulfates 17.5 See Rx Instructions PO .COMPLEX 07/13/24 gram-3.13 gram-1.6 gram oral soln #354 mL (Suprep Bowel Prep Kit) Allergies Allergy/AdvReac Type Severity Reaction Status Date / Time No Known Allergies Allergy Verified 04/11/24 10:49 [facility] Disclaimer: The information contained in this section may have been updated after the patient was seen, as this information can be updated by other users. Medical History (Updated 07/18/25 @ 11:57 by Andrei Cordon MD) Anxiety HTN (hypertension) Diverticulitis Surgical History History of colonoscopy Family History Grandmother Stomach cancer Bleeding disorder Grandmother No problems noted. Social History Smoking Status: Current every day smoker tobacco type: cigarettes packs per day: 1 alcohol intake: current substance use type: denies use current occupational status: retired Travel in the last 8 weeks?: None Have you lived/traveled outside US in past 30 days?: No Contact w/someone who lives/traveled outside US past 30 days?: No Exposure to someone with infectious disease in past 14 days?: No Do you have a fever (greater than 100.4 F or 38 C)?: No Have you tested positive for COVID-19?: No Exposed to someone with COVID-19 in past 14 days?: No Do you have a sore throat?: No Do you have a cough?: No Do you have any weakness?: No Do you have any diarrhea?: No Are you experiencing any unusual bleeding?: No Do you have any muscle aches/pain?: No Do you have any abdominal pain?: No Are you experiencing loss of taste or smell?: No Other Medical History Have you received the Flu Vaccine for this season: No Have you received the Pneumonia Vaccine: No ROS Obtained: Yes Systems reviewed as appropriate & no additional complaints except as documented Physical Exam General General appearance: alert and in no apparent distress Head Head exam: atraumatic Eye Eye exam: Present normal appearance, PERRL and EOMI ENT ENT exam: Present normal external ear exam Neck Neck exam: Present full ROM Chest Chest inspection: Present symmetric chest wall rise Respiratory Respiratory exam: Present normal lung sounds bilaterally; Absent respiratory distress, wheezes or stridor Cardiovascular Cardiovascular exam: Present regular rate and normal rhythm Abdominal Exam Abdominal exam: Present soft; Absent tenderness or guarding exam: Present deferred Extremities Exam Extremities exam: Present normal inspection Back Exam Back exam: Present normal inspection Neurological Exam Neurological exam: Present alert, oriented X3 and CN II-XII intact; Absent motor sensory deficit Psychiatric Psychiatric exam: Present normal affect Skin Skin exam: Present warm and dry Medical Decision Making Medical Records Screening: Per USPSTF and CDC recommendations, given the prevalence of disease in our region, it is our hospital?s policy to screen for HIV and viral Hepatitis for all patients aged 18 and over and those with ongoing risk factors. Diogenes Inquiry Pt receiving controlled substance: No Vital Signs: 07/18/25 10:30 07/18/25 10:36 07/18/25 11:00 Temperature 98.3 F Temperature Source Oral Pulse Rate 81 70 Pulse Rate [Right Brachial] 83 Respiratory Rate 18 13 Blood Pressure 153/95 H 138/82 Blood Pressure [Right Arm] 153/95 H Blood Pressure Mean [Right Arm] 114 Blood Pressure Source [Right Arm] Automatic Cuff Blood Pressure Position [Right Arm] Sitting 02 Sat by Pulse Oximetry 99 100 99 Oxygen Delivery Method Room Air Room Air Room Air Lab Data Lab Results 07/18/25 10:40: WBC 10.6, RBC 4.02 L, Hgb 14.2, Hct 37.5 L, MCV 93.3, MCH 35.3 H, MCHC 37.9 H, RDW 14.0, Plt Count 297, MPV 10.9 H, Neut % (Auto) 71.4, Lymph % (Auto) 18.2, [place] % (Auto) 9.4 H, Eos % (Auto) 0.5, Baso % (Auto) 0.3, Neut # (Auto) 7.6, Lymph # (Auto) 1.9, [place] # (Auto) 1.0, Eos # (Auto) 0.1, Baso # (Auto) 0.0, Sodium 118 L, Potassium 2.2 L*, Chloride 77 L, Carbon Dioxide 39 H, Anion Gap 4.2 L, BUN < 2 L, Creatinine 0.40 L, Estimated Creat Clear 69, Estimated GFR 217, Est GFR ( Amer) 262, Glucose 133 H, Calcium 7.9 L, Phosphorus 3.1, Magnesium 1.5 L, Total Bilirubin 1.1, AST 51, ALT 30, Alkaline Phosphatase 82, Troponin I 0.01, Total Protein 6.1 L D, Albumin 2.6 L, Globulin 3.5 H, Albumin/Globulin Ratio 0.7 L, Plasma/Serum Alcohol < 10 07/18/25 10:40 07/18/25 10:40 Orders (Tests/Meds): ED MEDICATIONS Generic Name Dose Route Start Last Admin Trade Name Freq PRN Reason Stop Dose Admin Magnesium Sulfate 2 gm in 50 mls @ 50 mls/hr 07/18/25 11:19 07/18/25 11:32 Magnesium Sulfate 2gm/50ml Premix IV 07/18/25 12:18 50 mls/hr ONCE ONE Administration Sodium Chloride 500 mls @ 50 mls/hr 07/18/25 11:45 Sod Chloride 3% 500ml Bag (Hypertonic) IV 07/18/25 15:44 .Q10H CHANDANA Discontinued Medications Generic Name Dose Route Start Last Admin Trade Name Freq PRN Reason Stop Dose Admin Potassium Chloride 80 meq 07/18/25 11:19 07/18/25 11:33 Potassium Chloride 20meq Tab PO 07/18/25 11:20 80 meq ONCE ONE Administration ORDERS Category Date Time Status CT head/brain wo con Stat Cat Scan 07/18/25 10:35 Completed CXR --portable [XR chest portable] Stat Exams 07/18/25 10:35 Completed Blood alcohol [Ethyl Alcohol] Stat Lab 07/18/25 10:40 Completed CBC w/Auto Diff [Complete Blood Count Auto Diff] Stat Lab 07/18/25 10:40 Completed CMP [Comprehensive Metabolic Panel] Stat Lab 07/18/25 10:40 Completed HIV Combo Routine Lab 07/18/25 10:40 Received Hepatitis C Ab Qual. W/ RFX Routine Lab 07/18/25 10:40 Received Magnesium Stat Lab 07/18/25 10:40 Completed PHOS [Phosphorous] Stat Lab 07/18/25 10:40 Completed Troponin I Q3H Lab 07/18/25 13:45 Ordered Troponin I Q3H Lab 07/18/25 16:45 Ordered Troponin I Stat Lab 07/18/25 10:40 Completed UA [Urinalysis and Microscopic] Stat Lab 07/18/25 10:35 Ordered UDS [Drug Screen,Urine] Stat Lab 07/18/25 10:35 Ordered EKG Request [ECG Request] Stat Y 07/18/25 10:35 Ordered ECG Data Tracing #1: I reviewed this ECG and interpreted as documented below: Normal sinus rhythm. No ST elevation or depression. QTc prolonged at 520. Medical Decision Narrative: Lopez Nuñez is a 64-year-old male with a past medical history of hyponatremia secondary to SIADH, anxiety, alcohol use who presents to the emergency department for an episode of confusion. Patient states that yesterday, he returned from the grocery and put away his groceries, however throughout the day and into the animal scientist, he had episodes where he was thinking that he was doing things that he was not doing, such as fixing a door and looking up at the drapes. States that he did not go to bed until 530 this morning. He woke up at around 8 AM. He denies any trauma or falls. He was told to have a dentist appointment at 10:00 this morning, however due to this episode, they came to the emergency department instead. Patient is alert and oriented x 3 at this time. He denies any pain, including chest pain, abdominal pain. He has no focal weakness. Patient does state that he has had low sodium in the past that presented similarly. He does state that he is no longer drinking beer and will drink 2-3 martinis daily now. He last drink 1 martini yesterday. On arrival, patient initially hypertensive but normalized without intervention. Heart rate within normal image. Afebrile. Oxygen saturation appropriate on room air. Physical exam, stated above, revealed an overall well-appearing male in no distress. He is alert and answering questions appropriately. GCS 15. Cranial nerves II through XII intact. No focal neurological deficits. Pupils equal round reactive to light. Extraocular movements intact. No tremors appreciated. He is moving all extremities without cerebellar signs. Abdomen soft, nontender nondistended. Cardiopulmonary exam is unremarkable. Differential diagnosis includes, but is not limited to: SIADH with hyponatremia, other electrolyte derangement, such as hypokalemia, hypomagnesemia, ACS, cardiac arrhythmia, intracranial hemorrhage, normal pressure hydrocephalus, among others. I have low concern for alcohol withdrawal/Warnicke's encephalopathy. Patient does not seem tremulous, diaphoretic and is not anxious. the most morbid conditions were considered and workup was based on these. Workup in the emergency department included: EKG, chest x-ray, CT head without contrast, urinalysis, UDS, CIWA score, alcohol level, CBC, CMP, phosphorus, troponin, magnesium level EKG interpreted by me personally. Patient does have prolonged QTc but no ischemic changes. See interpretation above chest x-ray interpreted by me personally. No focal consolidation, no pneumothorax, no widened mediastinum, no enlargement of the cardiac silhouette. Unremarkable chest x-ray. See radiology report for details. CT head interpreted by me personally. No intracranial hemorrhage, mass or midline shift. Per radiology, likely odontogenic cyst in the left maxillary region, however no acute intervention is warranted. Laboratory workup shows unremarkable CBC, electrolytes abnormal with a sodium of 118 (baseline appears to be 125-130 range), hypokalemia at 2.2 (will replace with 80 mEq of oral potassium chloride, chloride low at 77, no CHAIM, glucose normal at 133, calcium low at 7.9, magnesium mildly low at 1.5 (will replace with 2 g of IV magnesium sulfate), liver enzymes and bilirubin within normal limits. Initial troponin 0.01. Urine studies are pending. Alcohol level is less than 10. Given patient's significant hyponatremia, hypokalemia and hypomagnesemia, I do feel that this is likely related to his SIADH would benefit from admission for correction of these electrolyte derangements. I discussed admission with family and he and family were in agreement to proceed with admission. I discussed patient's case with Dr. Lin, with the hospital medicine service who agreed to admit the patient to the stepdown unit for hyponatremia, hypokalemia, hypomagnesemia in the setting of SIADH. Critical Care Critical Care Time Critical Care Time: Yes Attestation: On 07/18/25, the high probability of a clinically significant, sudden or life threatening deterioration of the following system(s) required my full and direct attention, intervention and personal management. The time I documented below is in addition to time spent performing reported procedures but includes the following listed in this critical care notation. Total Time Total Critical Care Time: 35
[2025-07-18 10:59] LABS: Hematocrit 37.5 % (42.0-52.0); Hemoglobin 14.2 g/dL (14.1-18.0); Immature Granulocytes % 0.2 %; Mean Corpuscular HGB Conc 37.9 g/dL (31.8-35.4); Mean Corpuscular Hemoglobin 35.3 pg (27.0-31.2); Mean Corpuscular Volume 93.3 fl (80-94); Nucleated Red Blood Cells % 0 %; Platelet Count 297 K/mm3 (142-424); Red Blood Count 4.02 M/mm3 (4.60-6.20); Red Cell Distribution Width-SD 48.1 fL; White Blood Count 10.6 K/mm3 (4.8-10.8)
[2025-07-18 11:02] LABS: Albumin Level 2.6 g/dl (3.5-5.0); Chloride 77 mmol/L (98-107); Sodium 118 mmol/L (136-145)
[2025-07-18 11:05] LABS: Alanine Aminotransferase 30 U/L (12-78); Anion Gap 4.2 mEq/L (5-15); Aspartate Amino Transferase 51 U/L (17-59); Carbon Dioxide 39 mmol/L (22.0-30.0); Creatinine Clearance Estimated 69 mL/min (50-200); Creatinine,Serum 0.40 mg/dl (0.66-1.25); Estimated Glomerular Filt Rate 217 ml/min (>60); GFR (African American) 262 ML/MIN (>60)
[2025-07-18 11:06] LABS: Albumin/Globulin Ratio 0.7 (1.1-1.8); Alkaline Phosphatase 82 U/L (38-126); Bilirubin,Total 1.1 mg/dl (0.2-1.3); Calcium 7.9 mg/dl (8.4-10.2); Globulin 3.5 g/dL (1.3-3.2); Glucose 133 mg/dl (74-100); Magnesium 1.5 mg/dl (1.6-2.3); Phosphorous 3.1 mg/dl (2.5-4.5); Total Protein,Serum 6.1 g/dl (6.3-8.2)
[2025-07-18 11:13] LABS: Blood Urea Nitrogen < 2 mg/dl (9-20)
[2025-07-18 11:16] LABS: Potassium 2.2 mmoL/L (3.5-5.1)
--- NOTE | 2025-07-18 11:17 | PC.NURSE ---
reported critical potassium of 2.2 to md at this time
[2025-07-18 11:18] LABS: Troponin I 0.01 ng/ml (0.00-0.034)
--- NOTE | 2025-07-18 11:21 | PC.NURSE ---
seizure pads placed on pts bedrails due to low sodium
[2025-07-18] MEDS: MAGNESIUM SULFATE IN WATER 2 GM/50 ML PIGGYBACK IV (11:32)
[2025-07-18] MEDS: POTASSIUM CHLORIDE 20MEQ TAB 80 MEQ PO (11:33)
--- NOTE | 2025-07-18 11:47 | PC.NURSE ---
malthouse laborer notified of bed
--- NOTE | 2025-07-18 12:01 | HMH.PHAINT1 ---
Pharmacy Intervention Comments: MEDICATION RECONCILIATION COMPLETED ON PATIENT USING EXTERNAL FILL HISTORY FROM PHARMACY. -LOR HANSEN, EDILIAD
--- NOTE | 2025-07-18 12:03 | PC.NURSE ---
report called to rhonda kraft. new IV being attempted at this time by lavinia kraft. updated patient and family on plan
--- NOTE | 2025-07-18 12:10 | EXP.HP ---
History of Present Illness *Admission Date: 07/18/25 *Reason for visit:: Confusion *History of present illness: Tree Nuñez is a 64-year-old male with a medical history significant for SIADH/hyponatremia, alcohol use disorder, anxiety/depression who presented to the ED due to concerns from daughter about confusion. Patient states he went to the grocery store yesterday and felt well, however cannot sleep the entire night. He states he was doing random, unusual things throughout the night like fixing doorknob and staring into blinds. He states he was not able to get sleep until 5 AM. His daughter came to pick him up for a dentist appointment today and noticed his confusion at which point she brought him to the ED. Patient is not the best historian at this time to intermittent confusion, but denies chest pain, shortness of breath, fever/chills, abdominal pain. He states he drinks quite a bit of water/drinks a day, and drinks about 5 glasses of mixed tequila drinks a day. No recent changes. Workup in the ED significant for sodium 118, normal alcohol level, UDS positive for THC, normal UA. CT head, CXR unremarkable for acute findings. Given this presentation, ED provider discussed case with me I decided to admit patient for further evaluation management. [facility] Disclaimer: The information contained in this section may have been updated after the patient was seen, as this information can be updated by other users. Medical History Anxiety HTN (hypertension) Diverticulitis Surgical History History of colonoscopy Family History Grandmother Stomach cancer Bleeding disorder Grandmother No problems noted. Social History Smoking Status: Current every day smoker tobacco type: cigarettes packs per day: 1 alcohol intake: current substance use type: denies use current occupational status: retired Travel in the last 8 weeks?: None Have you lived/traveled outside US in past 30 days?: No Contact w/someone who lives/traveled outside US past 30 days?: No Exposure to someone with infectious disease in past 14 days?: No Do you have a fever (greater than 100.4 F or 38 C)?: No Have you tested positive for COVID-19?: No Exposed to someone with COVID-19 in past 14 days?: No Do you have a sore throat?: No Do you have a cough?: No Do you have any weakness?: No Do you have any diarrhea?: No Are you experiencing any unusual bleeding?: No Do you have any muscle aches/pain?: No Do you have any abdominal pain?: No Are you experiencing loss of taste or smell?: No Other Medical History Have you received the Flu Vaccine for this season: No Have you received the Pneumonia Vaccine: No Meds Home Medications and Allergies Home Medications ?Medication ?Instructions ?Recorded ?Confirmed ?Type escitalopram oxalate 10 mg tablet 10 mg PO DAILY 01/25/24 07/18/25 History sodium chloride 1,000 mg soluble 1,000 mg PO BID 30 days #60 tabs 01/28/24 07/18/25 Rx tablet torsemide 10 mg tablet 10 mg PO DAILY 03/20/24 07/18/25 History hydralazine 25 mg tablet 25 mg PO BID 07/18/25 07/18/25 History New Prescriptions to Start Prescriptions: Allergies Allergy/AdvReac Type Severity Reaction Status Date / Time No Known Allergies Allergy Verified 07/18/25 13:41 Exam Data for Last 24 hours Vital signs and Labs for Last 24 Hours: Temp Pulse Resp BP Pulse Ox O2 Del Method 98.3 F 70 13 138/82 99 Room Air 07/18/25 10:36 07/18/25 11:00 07/18/25 11:00 07/18/25 11:00 07/18/25 11:00 07/18/25 11:00 Laboratory Results - last 24 hr 07/18/25 10:40: WBC 10.6, RBC 4.02 L, Hgb 14.2, Hct 37.5 L, MCV 93.3, MCH 35.3 H, MCHC 37.9 H, RDW 14.0, Plt Count 297, MPV 10.9 H, Neut % (Auto) 71.4, Lymph % (Auto) 18.2, Mcleod % (Auto) 9.4 H, Eos % (Auto) 0.5, Baso % (Auto) 0.3, Neut # (Auto) 7.6, Lymph # (Auto) 1.9, Mcleod # (Auto) 1.0, Eos # (Auto) 0.1, Baso # (Auto) 0.0, Sodium 118 L, Potassium 2.2 L*, Chloride 77 L, Carbon Dioxide 39 H, Anion Gap 4.2 L, BUN < 2 L, Creatinine 0.40 L, Estimated Creat Clear 69, Estimated GFR 217, Est GFR ( Amer) 262, Glucose 133 H, Calcium 7.9 L, Phosphorus 3.1, Magnesium 1.5 L, Total Bilirubin 1.1, AST 51, ALT 30, Alkaline Phosphatase 82, Troponin I 0.01, Total Protein 6.1 L D, Albumin 2.6 L, Globulin 3.5 H, Albumin/Globulin Ratio 0.7 L, Plasma/Serum Alcohol < 10 I & O for Last 24 hours: Intake & Output 07/15/25 07/16/25 07/17/25 07/18/25 23:59 23:59 23:59 23:59 Weight 65.771 kg Constitutional Constitutional: no acute distress Comments: Pleasantly confused *Routine HEENT Exam Head: Present normocephalic Eye: Present EOMI and PERRL ENT: Present mucous membranes moist *Routine Neck Exam Neck: Present supple; Absent lymphadenopathy *Routine Respiratory Exam Respiratory: Present CTA bilaterally *Routine Cardiovascular Exam Cardiovascular: Present RRR *Routine Abdominal Exam Abdominal: Present soft and normoactive bowel sounds; Absent tenderness *Routine Rectal Exam Rectal:: deferred *Routine Genitalia Exam Genitalia:: deferred *Routine Extremities Exam Extremities: Absent cyanosis, clubbing or edema *Routine Skin Exam Skin: Present warm; Absent rash *Routine Neurological Exam Neurological: Present alert and oriented X3 Assessment and Plan *Assessment and plan (1) Acute hypokalemia: Status: Acute Category: Medical Code(s): E87.6 - Hypokalemia (2) Acute hyponatremia: Status: Acute Category: Medical Code(s): E87.1 - Hypo-osmolality and hyponatremia Plan Tree Nuñez is a 64-year-old male with a medical history significant for SIADH/hyponatremia, alcohol use disorder, anxiety/depression who presented to the ED due to concerns from daughter about confusion. Patient states he went to the grocery store yesterday and felt well, however cannot sleep the entire night. He states he was doing random, unusual things throughout the night like fixing doorknob and staring into blinds. He states he was not able to get sleep until 5 AM. His daughter came to pick him up for a dentist appointment today and noticed his confusion at which point she brought him to the ED. Patient is not the best historian at this time to intermittent confusion, but denies chest pain, shortness of breath, fever/chills, abdominal pain. He states he drinks quite a bit of water/drinks a day, and drinks about 5 glasses of mixed tequila drinks a day. No recent changes. Workup in the ED significant for sodium 118, normal alcohol level, UDS positive for THC, normal UA. CT head, CXR unremarkable for acute findings. Given this presentation, ED provider discussed case with me I decided to admit patient for further evaluation management. 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 Patient presents with progressive confusion over the past day, initial sodium 118. ? Similar presentations in the past, was suspected to have SIADH. But the patient also endorses that he drinks quite a bit of fluids throughout the day, in addition to 5 glasses of mixed tequila drinks a day. 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 ? Follow-up serum/urine osmolality, urine sodium. ? Started hypertonic saline at 50 mL/h, sodium improved to 122. Will give an additional 200 mL over 4 hours and repeat BMP. ? Max sodium correction 6 to 8 mEq/day. Fluid restriction to 1200 mL liters per day. ? Patient does take escitalopram which could cause SIADH, but also takes torsemide. Also takes salt tabs at home. ? Continuous cardiac telemetry. Seizure precautions. #Hypokalemia ? Potassium 2.6, will replete per protocol. #Alcohol use disorder ? States he drinks 5 glasses of mixed tequila drinks a day. ? CIWA protocol, Ativan and diazepam as needed. #Anxiety/depression ? Continue home escitalopram 10 mg. #Hypertension ? Continue home hydralazine once appropriate. Hold home torsemide due to hyponatremia. Full code DVT prophylaxis: Lovenox 40 mg
[2025-07-18 12:20] LABS: Hepatitis C Ab Qual. W/ RFX REACTIVE (Negative)
--- NOTE | 2025-07-18 12:28 | PC.NURSE ---
patient arrived to ICU via wheelchair with RN Snehal @[phone]
[2025-07-18 12:31] LABS: Cholesterol 113 mg/dl (140-200); HDL Cholesterol 57 mg/dl (40-60); Triglycerides 70 mg/dl (30-150)
[2025-07-18] MEDS: SODIUM CHLORIDE 3 % 200 ML 50 ML IV ×2 (12:57→17:56)
[2025-07-18 13:02] LABS: Thyroid Stimulating Hormone 2.27 uIU/mL (0.465-4.68)
[2025-07-18] MEDS: ACETAMINOPHEN 325MG TAB 650 MG PO ×2 (13:02→21:03)
[2025-07-18 13:14] LABS: Microscopic, Urine URINE MICROSCOPIC (MICROSCOPIC)
[2025-07-18 13:35] LABS: Bilirubin,Urine Negative (Negative); Color,Urine YELLOW (Yellow); Glucose,Urine (UA) Negative (Negative); Ketones,Urine Negative (Negative); Leukocyte Esterase,Urine Negative (Negative); PH,Urine 8.0 (5.0-8.5); Protein,Urine Negative (Negative); Specific Gravity, Urine 1.010 (1.005-1.030); Urobilinogen,Urine 1.0 EU/dl (0.2)
[2025-07-18 13:50] LABS: Amphetamine/Metha Screen,Urine Negative ng/ml (<1000)
[2025-07-18 13:51] LABS: Barbiturates Screen,Urine Negative ng/ml (<200)
[2025-07-18 13:52] LABS: Benzodiazepines Screen,Urine Negative ng/ml (<200)
[2025-07-18 13:54] LABS: Methadone Screen,Urine Negative ng/ml (<300); Opiate Screen,Urine Negative ng/ml (<300)
[2025-07-18 13:55] LABS: Phencyclidine Screen,Urine Negative ng/ml (<25)
[2025-07-18 13:59] LABS: Squamous Epithelial Cell,Urine Occasional #/hpf (0-5); WBC,Urine Occasional #/hpf (0-3)
[2025-07-18] MEDS: NICOTINE 21MG/24HR PATCH 21 MG TD (14:08)
[2025-07-18 14:27] LABS: Troponin I 0.02 ng/ml (0.00-0.034)
[2025-07-18 17:05] LABS: Anion Gap 1.6 mEq/L (5-15); Calcium 7.6 mg/dl (8.4-10.2); Carbon Dioxide 36 mmol/L (22.0-30.0); Chloride 87 mmol/L (98-107); Creatinine Clearance Estimated 66 mL/min (50-200); Creatinine,Serum 0.40 mg/dl (0.66-1.25); Estimated Glomerular Filt Rate 217 ml/min (>60); GFR (African American) 262 ML/MIN (>60); Glucose 129 mg/dl (74-100); Sodium 122 mmol/L (136-145)
[2025-07-18 17:17] LABS: Blood Urea Nitrogen < 2 mg/dl (9-20)
[2025-07-18 17:18] LABS: Potassium 2.6 mmoL/L (3.5-5.1); Troponin I 0.02 ng/ml (0.00-0.034)
--- NOTE | 2025-07-18 17:19 | PC.NURSE ---
Notified Pieter Lin about patient potassium level being 2.6, BUN less than 2 and Sodium level 122
[2025-07-18] MEDS: POTASSIUM CHLORIDE 20MEQ TAB 40 MEQ PO ×2 (17:38→21:03)
--- NOTE | 2025-07-18 18:15 | PC.NURSE ---
at 1730 Juan Carlos Lin advised to give another 200ml of hypertonic solution to patient at 50 mls/hr. after sending in a pharmacy communication Juan Carlos Lin called back at 1813 and advised to only do 150 mls/hr.
[2025-07-18 21:44] LABS: Anion Gap 5.1 mEq/L (5-15); Blood Urea Nitrogen < 2 mg/dl (9-20); Calcium 7.8 mg/dl (8.4-10.2); Carbon Dioxide 34 mmol/L (22.0-30.0); Chloride 86 mmol/L (98-107); Creatinine Clearance Estimated 66 mL/min (50-200); Creatinine,Serum 0.40 mg/dl (0.66-1.25); Estimated Glomerular Filt Rate 217 ml/min (>60); GFR (African American) 262 ML/MIN (>60); Glucose 123 mg/dl (74-100); Potassium 3.1 mmoL/L (3.5-5.1); Sodium 122 mmol/L (136-145)
[2025-07-19] VITALS (11 sets, daily range): BP systolic 113–134; BP diastolic 71–90; PULSE 70–800; RESP 13–22; TEMP 36.9–37.2; O2SAT 94–99; BMI 20.3
[2025-07-19] MEDS: POTASSIUM CHLORIDE 20MEQ TAB 40 MEQ PO ×3 (01:09→11:21)
[2025-07-19] MEDS: ACETAMINOPHEN 325MG TAB 650 MG PO ×3 (01:09→13:10)
[2025-07-19 06:05] LABS: Hematocrit 33.7 % (42.0-52.0); Immature Granulocytes % 0.3 %; Mean Corpuscular HGB Conc 35.0 g/dL (31.8-35.4); Mean Corpuscular Hemoglobin 34.3 pg (27.0-31.2); Mean Corpuscular Volume 98.0 fl (80-94); Nucleated Red Blood Cells % 0 %; Platelet Count 247 K/mm3 (142-424); Red Blood Count 3.44 M/mm3 (4.60-6.20); Red Cell Distribution Width-SD 53.5 fL; White Blood Count 6.4 K/mm3 (4.8-10.8)
[2025-07-19 06:10] LABS: Albumin Level 3.0 g/dl (3.5-5.0); Chloride 92 mmol/L (98-107); Potassium 3.4 mmoL/L (3.5-5.1); Sodium 123 mmol/L (136-145)
[2025-07-19 06:13] LABS: Alanine Aminotransferase 21 U/L (12-78); Albumin/Globulin Ratio 1.5 (1.1-1.8); Alkaline Phosphatase 76 U/L (38-126); Anion Gap 3.4 mEq/L (5-15); Aspartate Amino Transferase 62 U/L (17-59); Bilirubin,Total 0.7 mg/dl (0.2-1.3); Calcium 7.5 mg/dl (8.4-10.2); Carbon Dioxide 31 mmol/L (22.0-30.0); Creatinine Clearance Estimated 66 mL/min (50-200); Creatinine,Serum 0.40 mg/dl (0.66-1.25); Estimated Glomerular Filt Rate 217 ml/min (>60); GFR (African American) 262 ML/MIN (>60); Globulin 2.0 g/dL (1.3-3.2); Glucose 103 mg/dl (74-100); Magnesium 1.9 mg/dl (1.6-2.3); Total Protein,Serum 5.0 g/dl (6.3-8.2)
[2025-07-19 06:14] LABS: Hemoglobin 11.9 g/dL (14.1-18.0)
[2025-07-19 06:43] LABS: Blood Urea Nitrogen < 2 mg/dl (9-20)
[2025-07-19] MEDS: SODIUM CHLORIDE 3 % 200 ML 50 ML IV (08:47)
[2025-07-19] MEDS: NICOTINE 21MG/24HR PATCH 21 MG TD (08:48)
--- NOTE | 2025-07-19 11:58 | DIET.NUTRFU ---
RD consult for chewing, patient has not teeth. Waiting on new dentures. Ordered softer foods for lunch and plans to discharge today. He expressed no dietary concerns at this time.
--- NOTE | 2025-07-19 13:14 | EXP.DC.SUM ---
General Admission date:: 07/18/25 HPI HPI HPI: Tree Nuñez is a 64-year-old male with a medical history significant for SIADH/hyponatremia, alcohol use disorder, anxiety/depression who presented to the ED due to concerns from daughter about confusion. Patient states he went to the grocery store yesterday and felt well, however cannot sleep the entire night. He states he was doing random, unusual things throughout the night like fixing doorknob and staring into blinds. He states he was not able to get sleep until 5 AM. His daughter came to pick him up for a dentist appointment today and noticed his confusion at which point she brought him to the ED. Patient is not the best historian at this time to intermittent confusion, but denies chest pain, shortness of breath, fever/chills, abdominal pain. He states he drinks quite a bit of water/drinks a day, and drinks about 5 glasses of mixed tequila drinks a day. No recent changes. Workup in the ED significant for sodium 118, normal alcohol level, UDS positive for THC, normal UA. CT head, CXR unremarkable for acute findings. Given this presentation, ED provider discussed case with me I decided to admit patient for further evaluation management. Hospital Course Hospital Course Hospital Course: Tree Nuñez is a 64-year-old male with a medical history significant for SIADH/hyponatremia, alcohol use disorder, anxiety/depression who presented to the ED due to concerns from daughter about confusion. Patient states he went to the grocery store yesterday and felt well, however cannot sleep the entire night. He states he was doing random, unusual things throughout the night like fixing doorknob and staring into blinds. He states he was not able to get sleep until 5 AM. His daughter came to pick him up for a dentist appointment today and noticed his confusion at which point she brought him to the ED. Patient is not the best historian at this time to intermittent confusion, but denies chest pain, shortness of breath, fever/chills, abdominal pain. He states he drinks quite a bit of water/drinks a day, and drinks about 5 glasses of mixed tequila drinks a day. No recent changes. Workup in the ED significant for sodium 118, normal alcohol level, UDS positive for THC, normal UA. CT head, CXR unremarkable for acute findings. Given this presentation, ED provider discussed case with me I decided to admit patient for further evaluation management. 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 Patient presents with progressive confusion over the past day, initial sodium 118. ? Similar presentations in the past, was suspected to have SIADH. But the patient also endorses that he drinks quite a bit of fluids throughout the day, in addition to 5 glasses of mixed tequila drinks a day. 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 ? Follow-up serum/urine osmolality, urine sodium. ? Sodium improved to 127 after hypotonic fluids. Patient feels better, alert and oriented today. ? Patient does take escitalopram which could cause SIADH, but also takes torsemide. Also takes salt tabs at home. Advised patient to take torsemide as needed for swelling. ? Follow-up with PCP within 1 week. #Current tobacco smoker #Chronic cough ? Patient states his cough has been worse over the past few months, uses albuterol as needed. ? Started on Anoro Ellipta, will need PFTs outpatient. ? Follow-up with PCP within 1 week. #Hypokalemia ? Improved with repletion. #Alcohol use disorder ? States he drinks 5 glasses of mixed tequila drinks a day. Advised to decrease alcohol use. CIWA scores normal. #Anxiety/depression ? Continue home escitalopram 10 mg. #Hypertension ? Continue home hydralazine, use torsemide as needed for leg swelling due to hyponatremia. Exam Data for Last 24 hours Vital signs and Labs for Last 24 Hours: Temp Pulse Resp BP Pulse Ox O2 Del Method 98.7 F 81 22 132/90 99 Room Air 07/19/25 12:35 07/19/25 12:35 07/19/25 12:35 07/19/25 12:35 07/19/25 12:35 07/19/25 13:00 Laboratory Results - last 24 hr 07/18/25 12:45: Urine Color Yellow, Urine Appearance Clear, Urine pH 8.0, Ur Specific [place] 1.010, Urine Protein Negative, Urine Glucose (UA) Negative, Urine Ketones Negative, Urine Blood Negative, Urine Nitrate Negative, Urine Bilirubin Negative, Urine Urobilinogen 1.0, Ur Leukocyte Esterase Negative, Urine RBC None, Urine WBC Occasional, Ur Squamous Epith Cells Occasional, Urine Bacteria None, Urine Opiates Screen Negative, Urine Methadone Screen Negative, Ur Barbituates Screen Negative, Ur Phencyclidine Scrn Negative, Ur Amphetamines Screen Negative, U Benzodiazepines Scrn Negative, Urine Cocaine Screen Negative, U Marijuana (THC) Screen Positive H 07/18/25 14:01: Troponin I 0.02 07/18/25 16:49: Sodium 122 L, Potassium 2.6 L*, Chloride 87 L, Carbon Dioxide 36 H, Anion Gap 1.6 L, BUN < 2 L, Creatinine 0.40 L, Estimated Creat Clear 66, Estimated GFR 217, Est GFR ( Amer) 262, Glucose 129 H, Calcium 7.6 L, Troponin I 0.02 07/18/25 21:27: Sodium 122 L, Potassium 3.1 L, Chloride 86 L, Carbon Dioxide 34 H, Anion Gap 5.1, BUN < 2 L, Creatinine 0.40 L, Estimated Creat Clear 66, Estimated GFR 217, Est GFR ( Amer) 262, Glucose 123 H, Calcium 7.8 L 07/19/25 04:33: WBC 6.4 D, RBC 3.44 L, Hgb 11.9 L D, Hct 33.7 L, MCV 98.0 H, MCH 34.3 H, MCHC 35.0, RDW 14.8, Plt Count 247, MPV 11.8 H, Neut % (Auto) 57.4, Lymph % (Auto) 27.8, [place] % (Auto) 12.4 H, Eos % (Auto) 1.6, Baso % (Auto) 0.5, Neut # (Auto) 3.7, Lymph # (Auto) 1.8, [place] # (Auto) 0.8, Eos # (Auto) 0.1, Baso # (Auto) 0.0, Sodium 123 L, Potassium 3.4 L, Chloride 92 L, Carbon Dioxide 31 H, Anion Gap 3.4 L, BUN < 2 L, Creatinine 0.40 L, Estimated Creat Clear 66, Estimated GFR 217, Est GFR ( Amer) 262, Glucose 103 H, Calcium 7.5 L, Magnesium 1.9 D, Total Bilirubin 0.7, AST 62 H, ALT 21 D, Alkaline Phosphatase 76, Total Protein 5.0 L, Albumin 3.0 L D, Globulin 2.0, Albumin/Globulin Ratio 1.5 I & O for Last 24 hours: Intake & Output 07/16/25 07/17/25 07/18/25 07/19/25 23:59 23:59 23:59 23:59 Intake Total 1120 / 1120 628 / 628 Output Total 650 / 1550 1100 / 1100 Balance 470 / -430 -472 / -472 Weight 62.4 kg 62.4 kg Constitutional Constitutional: no acute distress *Routine HEENT Exam Head: Present normocephalic Eye: Present EOMI and PERRL ENT: Present mucous membranes moist *Routine Neck Exam Neck: Present supple; Absent lymphadenopathy *Routine Respiratory Exam Respiratory: Present CTA bilaterally *Routine Cardiovascular Exam Cardiovascular: Present RRR *Routine Abdominal Exam Abdominal: Present soft and normoactive bowel sounds; Absent tenderness *Routine Extremities Exam Extremities: Absent cyanosis, clubbing or edema *Routine Skin Exam Skin: Present warm; Absent rash *Routine Neurological Exam Neurological: Present alert and oriented X3 Results Data Completed and Pending Labs on day of discharge: Labs from last 24 hours 07/19/25 07/18/25 07/18/25 04:33 21:27 16:49 WBC 6.4 D RBC 3.44 L Hgb 11.9 L D Hct 33.7 L MCV 98.0 H MCH 34.3 H MCHC 35.0 RDW 14.8 Plt Count 247 MPV 11.8 H Neut % (Auto) 57.4 Lymph % (Auto) 27.8 [place] % (Auto) 12.4 H Eos % (Auto) 1.6 Baso % (Auto) 0.5 Neut # (Auto) 3.7 Lymph # (Auto) 1.8 [place] # (Auto) 0.8 Eos # (Auto) 0.1 Baso # (Auto) 0.0 Sodium 123 L 122 L 122 L Potassium 3.4 L 3.1 L 2.6 L* Chloride 92 L 86 L 87 L Carbon Dioxide 31 H 34 H 36 H Anion Gap 3.4 L 5.1 1.6 L BUN < 2 L < 2 L < 2 L Creatinine 0.40 L 0.40 L 0.40 L Estimated Creat Clear 66 66 66 Estimated GFR 217 217 217 Est GFR ( Amer) 262 262 262 Glucose 103 H 123 H 129 H Calcium 7.5 L 7.8 L 7.6 L Magnesium 1.9 D Total Bilirubin 0.7 AST 62 H ALT 21 D Alkaline Phosphatase 76 Troponin I 0.02 Total Protein 5.0 L Albumin 3.0 L D Globulin 2.0 Albumin/Globulin Ratio 1.5 Urine Color Urine Appearance Urine pH Ur Specific [place] Urine Protein Urine Glucose (UA) Urine Ketones Urine Blood Urine Nitrate Urine Bilirubin Urine Urobilinogen Ur Leukocyte Esterase Urine RBC Urine WBC Ur Squamous Epith Cells Urine Bacteria Urine Opiates Screen Urine Methadone Screen Ur Barbituates Screen Ur Phencyclidine Scrn Ur Amphetamines Screen U Benzodiazepines Scrn Urine Cocaine Screen U Marijuana (THC) Screen 07/18/25 07/18/25 14:01 12:45 WBC RBC Hgb Hct MCV MCH MCHC RDW Plt Count MPV Neut % (Auto) Lymph % (Auto) [place] % (Auto) Eos % (Auto) Baso % (Auto) Neut # (Auto) Lymph # (Auto) [place] # (Auto) Eos # (Auto) Baso # (Auto) Sodium Potassium Chloride Carbon Dioxide Anion Gap BUN Creatinine Estimated Creat Clear Estimated GFR Est GFR ( Amer) Glucose Calcium Magnesium Total Bilirubin AST ALT Alkaline Phosphatase Troponin I 0.02 Total Protein Albumin Globulin Albumin/Globulin Ratio Urine Color Yellow Urine Appearance Clear Urine pH 8.0 Ur Specific [place] 1.010 Urine Protein Negative Urine Glucose (UA) Negative Urine Ketones Negative Urine Blood Negative Urine Nitrate Negative Urine Bilirubin Negative Urine Urobilinogen 1.0 Ur Leukocyte Esterase Negative Urine RBC None Urine WBC Occasional Ur Squamous Epith Cells Occasional Urine Bacteria None Urine Opiates Screen Negative Urine Methadone Screen Negative Ur Barbituates Screen Negative Ur Phencyclidine Scrn Negative Ur Amphetamines Screen Negative U Benzodiazepines Scrn Negative Urine Cocaine Screen Negative U Marijuana (THC) Screen Positive H DS: Diagnosis Discharge Diagnosis (1) Acute hypokalemia: Status: Acute Code(s): E87.6 - Hypokalemia (2) Acute hyponatremia: Status: Acute Code(s): E87.1 - Hypo-osmolality and hyponatremia Meds Home Medications and Allergies Home Medications ?Medication ?Instructions ?Recorded ?Confirmed ?Type escitalopram oxalate 10 mg tablet 10 mg PO DAILY 01/25/24 07/18/25 History sodium chloride 1,000 mg soluble 1,000 mg PO BID 30 days #60 tabs 01/28/24 07/18/25 Rx tablet hydralazine 25 mg tablet 25 mg PO BID 07/18/25 07/18/25 History methocarbamol 500 mg tablet 500 mg PO TID PRN Cramping #14 tabs 07/19/25 Rx torsemide 10 mg tablet 10 mg PO DAILY PRN Swelling 30 07/19/25 07/18/25 Rx days #0 tabs umeclidinium 62.5 mcg-vilanterol 1 inh inhalation DAILY #60 ea 07/19/25 Rx 25 mcg/actuation powdr for inhalation (Anoro Ellipta) New Prescriptions to Start Prescriptions: methocarbamol Vj Lin umeclidinium-vilanterol [Anoro Ellipta] Vj Lin Allergies Allergy/AdvReac Type Severity Reaction Status Date / Time No Known Allergies Allergy Verified 07/18/25 13:41 Discharge Plan Disposition Patient Disposition: Home, Self-Care Condition: Fair Follow up Plan Follow up with: Marco Restrepo MD [Primary Care Provider, Internal Medicine] - 07/29/25 4:00 pm Prescriptions/Medication Reconciliation: New umeclidinium-vilanterol [Anoro Ellipta] 62.5-25 mcg/actuation blister with device 1 inh inhalation DAILY Qty: 60 0RF methocarbamol 500 mg tablet 500 mg PO TID PRN (Reason: Cramping) Qty: 14 0RF Continued escitalopram oxalate 10 mg tablet 10 mg PO DAILY Patient Comments: TAKE 1 TABLET BY MOUTH ONCE DAILY sodium chloride 1,000 mg Tablet,Soluble 1,000 mg PO BID 30 Days Qty: 60 0RF hydralazine 25 mg tablet 25 mg PO BID Patient Comments: TAKE ONE TABLET BY MOUTH TWICE DAILY --TAKE WITH FOOD-- Changed torsemide 10 mg Tablet 10 mg PO DAILY PRN (Reason: Swelling) 30 Days Qty: 0 0RF Problem Reconciliation Problems Reviewed?: Yes Patient Discharge Instructions Print Language: Wolof Providers Primary Care Provider: Marco Restrepo Admit Provider: Vj Lin Attending Provider: Vj Lin
[2025-07-19 14:18] LABS: Anion Gap 7.5 mEq/L (5-15); Calcium 8.2 mg/dl (8.4-10.2); Carbon Dioxide 30 mmol/L (22.0-30.0); Chloride 94 mmol/L (98-107); Creatinine Clearance Estimated 66 mL/min (50-200); Creatinine,Serum 0.40 mg/dl (0.66-1.25); Estimated Glomerular Filt Rate 217 ml/min (>60); GFR (African American) 262 ML/MIN (>60); Glucose 102 mg/dl (74-100); Potassium 4.5 mmoL/L (3.5-5.1); Sodium 127 mmol/L (136-145)
[2025-07-19 14:20] LABS: Blood Urea Nitrogen < 2 mg/dl (9-20)
[2025-07-19] MEDS: UMECLIDINIUM/VILANTEROL 62.5/25MCG INHALER 1 PUFF IH (15:07)
--- NOTE | 2025-07-19 15:24 | PC.NURSE ---
patient was discharged and left via wheelchair @1516
[2025-07-21 14:10] LABS: Cortisol,AM 12.2 ug/dL (6.2-19.4)
--- NOTE | 2025-07-22 10:39 | SW/DCPLANNER ---
Spoke with patient on the phone. patient stated that he is doing well. Patient stated that he is aware of his upcoming appointment. Patient stated that he was able to get his new medicine picked up. Patient stated that he has no concerns or questions at this time. Jack Vaughn
== END 2025-07-19 15:16 | disposition home or self-care (01) ==
LOC: ER 11:28 → ICU 11:55
PROVIDERS: Admitting Provider Student in an Organized Health Care Education/Training Program; Emergency Provider Student in an Organized Health Care Education/Training Program; PCP Internal Medicine Adolescent Medicine; Visit Provider Student in an Organized Health Care Education/Training Program
DX: E83.42 Hypomagnesemia (principal); E87.1 Hypo-osmolality and hyponatremia; E87.6 Hypokalemia; F10.10 Alcohol abuse, uncomplicated; F41.9 Anxiety disorder, unspecified; F32.A Depression, unspecified; I10 Essential (primary) hypertension; F17.210 Nicotine dependence, cigarettes, uncomplicated; R05.3 Chronic cough; Z79.899 Other long term (current) drug therapy
CPT/HCPCS: 36415; 70450; 71045; 80048; 80053; 80061; 80307; 80320; 81001; 82533; 83735; 84100; 84443; 84484; 85025; 86803; 87389; 87522; 93005; 94640; 96361; 96365; 99285; G0378; J1650; J3475; J7131